=== PATIENT | male | born 1965 | race Caucasian/White ===

== ENCOUNTER → 2018-02-07 09:15 | Outpatient (CLI) | payer MEDICAID, SELFPAY ==
--- NOTE | 2018-02-07 06:00 | DI.REPORT_ITS ---
SYMPTOM/DIAGNOSIS: LUMBAR RADICULOPATHY C-ARM FLUOROSCOPY: Fluoroscopy Time: 26 SEC Fluoroscopy was provided for guidance with lumbar spine pain clinic injection. Please see procedure note for details.
[2018-02-07 09:22] VITALS: BP 120/83; PULSE 90; RESP 16; TEMP 36.1; O2SAT 94
[2018-02-07] MEDS: Omnipaque 240 MG/ML 50 ML BTL IJ (10:24)
[2018-02-07] MEDS: methylPREDNISolone ACETATE 40 MG/ML VIAL IJ (10:24)
[2018-02-07 10:26] VITALS: BP 135/81; PULSE 82; RESP 12; O2SAT 96
--- NOTE | 2018-02-07 10:28 | PDOC.PAIN_ITS ---
Pain Clinic Procedure Note Patient Problems: Current Active Problems Problem Status Onset Lumbar radiculopathy, right Chronic EPIDURAL STEROID WITH CATHETER INJECTION PROCEDURE NOTE COMMENTS: Patient had previous epidural steroid injection with good relief in October. Prior to that he has had SI joint injections and radiofrequency ablation without relief. CASSIDY PORTILLO has been referred to the [facility] for lumbar epidural steroid injection. Patient was greeted by the nurse who verified patients name and . Patient was then taken to the fluoroscopy suite. Patient was interviewed and the medical record reviewed. There were no medical , pharmacologic, radiographic, or other structural contraindications to attempting fluoroscopically guided lumbar epidural steroid injection. Risks and expected side effects as well as potential benefits of the procedure were reviewed and voiced concerns addressed. The patient consent form was signed and witnessed. Standard time-out procedure was performed. Patient was placed in the prone position on the fluoroscopy table and automated blood pressure cuff and pulse oximeter applied. The skin entry point for entering/approaching the epidural space by a {L5-S1} and marked. Following thorough chlorhexadine preparation of the skin and draping and 1% lidocaine infiltration of the skin entry point and subcutaneous tissues, a 17 gauge Touhy needle was placed under fluoroscopic guidance and with loss of resistance technique into the epidural space. Needle tip placement and depth were aided and confirmed by fluoroscopy. There was no paresthesia or return of blood or CSF through the needle. An Arrow cath was thread to the {right and cephalad} and 1 cc's of Omnipaque 240 was injected with clear epidural spread confirmed with fluoroscopy. 80mg depomedrol was injected. There was not any unusual discomfort expressed. Vital signs were stable throughout the procedure and were as recorded in nursing records. Follow up plans and appointments were discussed.Post procedure instruction was given as documented in nursing records and having met discharge criteria and was discharged from the [facility]. COMMENTS: He will follow-up as needed. He would be a candidate for intercept study possibly or possibly non-study basivertebral nerve RF candidate. I will have him follow-up with Andree Andre in a few weeks. Would probably obtain an updated MRI
== END ==
PROVIDERS: PCP Nurse Practitioner Family; Visit Provider Anesthesiology Pain Medicine
DX: M54.16 Radiculopathy, lumbar region (principal); G89.29 Other chronic pain
CPT/HCPCS: 62323; 72100; J1030; Q9967

== ENCOUNTER 2018-06-06 07:30 | Outpatient (REF) | payer MEDICAID, SELFPAY ==
[2018-06-06 13:04] LABS: ALT 23 U/L (12-78); AST 23 U/L (15-37); Albumin 3.5 g/dL (3.4-5.0); Alkaline Phosphatase 109 U/L (46-116); Anion Gap 3.8 mmol/L (3-11); BUN 12 mg/dL (7-18); Bilirubin, Total 0.2 mg/dL (0.2-1.0); CO2 34.2 mmol/L (21.0-32.0); CREATININE 0.89 mg/dL (0.70-1.30); Chloride 105 mmol/L (98-107); Cholesterol 133 mg/dL (50-200); Glucose 99 mg/dL (70-100); HDL Cholesterol 35 mg/dL (40-60); LDL CHOLESTEROL 88 mg/dL (<100); Potassium 4.2 mmol/L (3.5-5.1); Sodium 143 mmol/L (136-145); Total Protein 6.9 g/dL (6.4-8.2); Triglyceride 45 mg/dL (30-150)
== END 2018-06-06 07:50 ==
LOC: NCHCN 07:30
PROVIDERS: PCP Nurse Practitioner Family; Visit Provider Nurse Practitioner Family
DX: Z13.220 Encounter for screening for lipoid disorders (principal); Z13.228 Encounter for screening for other metabolic disorders; Z00.00 Encounter for general adult medical examination without abnormal findings
CPT/HCPCS: 80053; 80061; 83721

== ENCOUNTER 2018-09-21 10:38 | Outpatient (CLI) | payer MEDICAID, SELFPAY ==
[2018-09-21 10:41] VITALS: BP 115/83; PULSE 92; RESP 24; TEMP 37; O2SAT 93
[2018-09-21] MEDS: methylPREDNISolone ACETATE 40 MG/ML VIAL IJ (11:00)
[2018-09-21 11:01] VITALS: BP 134/72; PULSE 86; RESP 20; O2SAT 92
[2018-09-21] MEDS: Omnipaque 240 MG/ML 50 ML BTL IJ (11:01)
--- NOTE | 2018-09-21 11:03 | DI.RAD_ITS ---
SYMPTOMS/DIAGNOSIS: LUMBAR RADICULOPATHY, LUMBAR EPIDURAL STEROID INJECTION PAIN CLINIC: Fluoroscopy Time: 23.5 sec, 9.46 mGy Images submitted from the pain clinic demonstrate needle positioning over the left paramedian position at the level of L 4 - 5 in conjunction with an epidural steroid injection carried out by Dr. Dos Santos. Please see the procedure report for further information.
--- NOTE | 2018-09-21 11:03 | PDOC.PAIN ---
Pain Clinic Procedure Note Current Active Problems Problem Status Onset Left lumbar radiculitis Chronic Lumbar Epidural Steroid Injection Procedure Note COMMENTS: I did review his recent evaluation note from Ms. Miller on 08/29/18. I also reviewed his most recent lumbar spine MRI. CASSIDY PORTILLO has been referred to the [facility] for lumbar epidural steroid injection. The patient was greeted by the nurse who verified patients name and . Patient was then taken to the fluoroscopy suite. The patient was interviewed and the medial record reviewed. There were no medical, pharmacologic, radiographic, or other structural contraindications to attempting fluoroscopically guided lumbar epidural steroid injection. Risks and expected side effects as well as potential benefits of the procedure were reviewed and voiced concerns expressed. The patient consent form was signed and witnessed. Standard patient time-out procedure was performed. The patient was placed in the prone position on the fluoroscopy table and automated blood pressure cuff and pulse oximeter applied. The skin entry point for entering/approaching the epidural space at the left side of the L4-L5 interspace and marked. Following thorough chlorhexadine preparation of the skin and draping and 1% lidocaine infiltration of the skin entry point and subcutaneous tissues, a 18 gauge Touhy needle was placed under fluoroscopic guidance and with loss of resistance technique into the epidural space. Needle tip placement and depth were aided and confirmed by fluoroscopy. There was no paresthesia or return of blood or CSF through the needle. 1 cc's of Omnipaque 240 was injected with clear epidural spread confirmed with fluoroscopy. 80mg depomedrol was injected. There was not any unusual discomfort expressed by CASSIDY PORTILLO. Patient's vital signs were stable throughout the procedure and were as recorded in nursing records. Follow up plans and appointments were discussed with patient. Post procedure instruction was given as documented in nursing records and having met discharge criteria and was discharged from the [facility]. COMMENTS: If this procedure is found to be effective, it can be completed up to 3 times per 12 months.
== END 2018-09-22 12:44 | disposition home or self-care (01) ==
LOC: PC 10:38
PROVIDERS: PCP Nurse Practitioner Family; Visit Provider Preventive Medicine Occupational Medicine
DX: M54.16 Radiculopathy, lumbar region (principal)
CPT/HCPCS: 62323; 72100; J1030; Q9967

== ENCOUNTER 2019-04-19 19:19 | Emergency (ER) | payer MEDICAID, SELFPAY ==
[2019-04-19] VITALS (47 sets, daily range): BP systolic 110–147; BP diastolic 66–87; PULSE 68–92; RESP 8–24; TEMP 37; O2SAT 88–100
--- NOTE | 2019-04-19 19:22 | ED.GENADUL_ITS ---
Discharge Plan Disposition Patient Disposition: HOME Condition: Good Discharge Details Chief Complaint: AMS/LOC Clinical Impression: Hypercarbia, Cough, COPD exacerbation Primary Care Provider: Celina Johnson ED Provider: Godwin Griffin Home Meds and New Rx's Prescriptions: New prednisone 50 MG tablet 50 mg PO DAILY Qty: 5 RF: 0 No Action ranitidine HCl 150 mg capsule 150 mg PO BID RF: 0 Symbicort 160-4.5 mcg/actuation HFA aerosol inhaler 1 puff IH BID RF: 0 albuterol sulfate [ProAir HFA] 90 mcg/actuation HFA aerosol inhaler 1 - 2 puff IH .COMPLEX PRNRF: 0 amitriptyline 75 MG tablet 75 mg PO as directed RF: 0 gabapentin 300 MG capsule 900 mg PO TID RF: 0 Discharge Instructions Instructions: COPD (Chronic Obstructive Pulmonary Disease) (ED) Additional Instructions: At this time I feel your symptoms of elevated CO2 levels are secondary to COPD likely worsened by your severe fatigue secondary to not sleeping last night. There is no evidence of pneumonia on your x-ray. Please take the steroid as directed. Please continue to use her Symbicort 2 puffs twice daily as directed. I would recommend using your albuterol inhaler every 4-6 hours for the next 2 to 3 days. Please make sure that your with people and not staying alone at all times. If you notice any worsening of your symptoms, or any new symptoms such as vomiting, diarrhea, fever, chills, shortness of breath, chest pain, numbness, weakness, or fainting , please return immediately to the emergency department for reevaluation. Please follow up with your primary care provider as soon as possible for reassessment and reevaluation. As always, it was a pleasure participating in your medical care today. Referrals: Celina Johnson [Primary Care Provider] - Medical Decision Making This is a 53-year-old male with a past medical history of chronic lumbar radiculopathy, reactive airway disease, who presents today for evaluation of altered mental status. EMS was contacted for this, upon their arrival the patient demonstrate normal vital signs except for temperature of 96. He demonstrated no evidence of trauma, he was found in the garage under boxes though. He was able to get up and ambulate and answer all questions. He has no complaints but is a poor historian. EMS did give him Narcan as he felt his pupils were slightly pinpoint, however this made no change. While he was in the ambulance he was notably sleepy but he woke up upon arrival to the ED. Blood sugar was normal. Stroke scale was negative per EMS on their assessment. Upon arrival here his exam is notably unremarkable. He does demonstrate some mild dysdiadochokinesia for his hands but no dysmetria, no other focal neurologic deficits. No signs of trauma, no evidence of significant abnormality. No history of overdose. No complaints of chest pain. However he does seem slightly confused and sleepy. I am uncertain as to the exact etiology however we will evaluate for potential causative agents as well as potential life- threatening etiologies. We will rehydrate, evaluate for these and reassess. Clinically there is no evidence of acute stroke, significant focal neurologic deficit, or significant trauma 11:05 PM Patient's laboratory work-up is returned, he has a mild white count, no bandemia. Afebrile, electrolytes normal, renal function normal, troponin, proBNP, TSH normal. Urinalysis unremarkable, UDS positive only for tricyclics which she does take as prescribed. Acetaminophen and salicylate levels normal. CT scan unremarkable per virtual radiology. VBG did come back though and demonstrated a mild noncompensated respiratory acidosis with a PCO2 of 62. This may be the cause of his slightly vague and nonspecific fatigue symptomatology. BiPAP was placed, to repeat serial VBG's were drawn which demonstrated notable driving down of his PCO2. This patient CO2 went lower there was a notable direct correlation between his alert mental status and his CO2. At this time his CO2 is now 48, he is notably conversant, wide-awake, very conversational. I feel this is likely the cause of his symptomatology. On reassessment the patient does have a very minimal wheeze in the right lower lung field. We will give 1 DuoNeb. Currently his oxygenation is stable, his respirations are normal, he demonstrates continued normal neurologic exam with no focal neurologic deficits. Feel that the cause of his symptomatology was CO2 retention, may be because mild bronchitis. Chest x-ray negative for pneumonia. Patient does not want admission, nurse requesting to go home. We will give oral steroids here, prescription for steroids at home, he already has a Symbicort inhaler at home recommend he continue to use this frequently. Currently the patient is of sound mind, demonstrates notable decision-making capacity, and understands risks and benefits of discharge versus admission. Including the avoidance of potential life-threatening etiology or disability. Additionally at this time the patient continues to deny any suicidal ideations or taking any additional medication. 11:36 PM Patient was again reassessed, he continues to do very well, he feels well and would like to go home. I did discuss observation overnight, and prolonged observation here in the ED the patient states that he does not feel that this is necessary and would like to go home. We did discuss again the risks and benefits of this and he understands. Prior to discharge we did get the patient up and ambulate him around the emergency department again. He did very well with this, he had no loss of consciousness, syncope, tachydysrhythmia, oxygen was stable between 9394% on room air. Patient continues to state that he feels comfortable going home and would like to go home. We will call her CT for him. Given prescription for prednisone for mild bronchitis versus mild COPD. Recommend he continue using his Symbicort, and the albuterol every 6 hours for the albuterol every 12 hours for the Symbicort. We discussed the importance of close follow-up with his PCP. I have extensively reviewed the treatment plan and discharge instructions with the patient. I have addressed all patient concerns at this time. The patient was made aware of what symptoms to monitor for that would warrant a return to the emergency department. Discussed the plan with the patient, they demonstrate verbal understanding and agreement with our assessment and plan at this time. EKG 19: 12 Rate 68, intervals normal, no QRS prolongation, sinus rhythm, no significant ST elevations or depressions, no significant Q waves. No inverted T waves. No other significant abnormalities. No evidence of Concepcion wave, no delta wave, no epsilon wave. No evidence of STEMI. FINDINGS: Lungs: Unremarkable. No consolidation. Pleural space: Unremarkable. No pleural effusion. No pneumothorax. Heart/Mediastinum: Unremarkable. No cardiomegaly. Bones/joints: No acute skeletal abnormality. IMPRESSION: Negative for acute thoracic pathology. Thank you for allowing us to participate in the care of your patient. Dictated and Authenticated by: Bandar Dawkins MD 04/19/2019 8:10 PM Eastern Time ([place] & [place]) FINDINGS: Limitations: Study is limited by streak and motion artifact. Brain: Normal. No hemorrhage. Unremarkable white matter. No mass effect. Ventricles: Normal. No ventriculomegaly. Bones/joints: Unremarkable. No acute fracture. Sinuses: Visualized sinuses are unremarkable. No fluid levels. Mastoid air cells: Visualized mastoid air cells are well aerated. Orbits: Unremarkable. Soft tissues: Unremarkable. IMPRESSION: No acute findings within the limits of this examination. FINDINGS: Vertebrae: Multilevel degenerative changes of the vertebra are present, as manifested by multilevel anterior osteophytes, endplate sclerosis, and multilevel posterior disc osteophyte complexes. No acutely displaced fracture or dislocation. Discs/Spinal canal/Neural foramina: Spinal canal is patent. Mild multilevel bony neuroforaminal stenosis is appreciated. Soft tissues: Unremarkable. Lungs: No acute findings of the lung apices. IMPRESSION: Negative for acute skeletal pathology. Thank you for allowing us to participate in the care of your patient. Dictated and Authenticated by: Bandar Dawkins MD 04/19/2019 8:14 PM Eastern Time ([place] & [place]) HPI General Date/Time Provider Initiated Documentation: 04/19/19 20:14 . HPI Narrative: This Is a 53-year-old male with a past medical history of reactive airway disease, on amitriptyline and gabapentin, as well as chronic lumbar radiculopathy, who presents today for evaluation of altered mental status. Per EMS they were called for altered mental status. When they arrived the patient was in the garage, no vehicles were on. He was under different boxes. However there was no evidence of trauma on the scene. He was ANO x3, he was able to ambulate to the ambulance without any difficulty. He was given 1 mg of Narcan total, as he did have slightly pinpoint pupils however they noticed no change with this. His blood sugars are normal, vital signs are stable, temperature was slightly low at 96. Patient had no complaints whatsoever. No other family was there. Currently the patient denies any complaints whatsoever. He denies chest pain, shortness of breath, headache, neck pain, numbness, tingling, weakness, nausea, vomiting, diarrhea, homicidal or suicidal ideations, fall, trauma, alcohol use, drug use. He denies taking any additional of his home medications. He has no other complaints at this time. He has a notably historian, and there are no other historical components that can be added to the HPI at this time. Related Data Home Medications Medication Instructions Recorded Confirmed amitriptyline 75 mg PO as directed 11/01/16 09/21/18 gabapentin 900 mg PO TID tab-cap 11/01/16 09/21/18 albuterol sulfate 90 mcg/actuation 1 - 2 puff IH .COMPLEX PRN gm 08/23/18 09/21/18 aerosol inhaler budesonide-formoterol HFA 160 1 puff IH BID gm 08/23/18 09/21/18 mcg-4.5 mcg/actuation aerosol inhaler ranitidine HCl 150 mg capsule 150 mg PO BID cap 08/23/18 09/21/18 prednisone 50 mg PO DAILY #5 tab 04/19/19 Previous Rx's Medication Instructions Recorded prednisone 50 mg PO DAILY #5 tab 04/19/19 Allergies Allergy/AdvReac Type Severity Reaction Status Date / Time meloxicam AdvReac Intermediate Nausea Unverified 04/19/19 19:23 Review of Systems All systems reviewed & are unremarkable except as noted in HPI and below PFSH Medical History (Updated 09/21/18 @ 11:03 by Derick Dos Santos DO) Aggression Alcohol abuse, in remission Anxiety Back pain Bilateral ankle fractures Chronic cough Chronic knee pain Chronic left shoulder pain Chronic pain (Chronic) COPD (chronic obstructive pulmonary disease) (Chronic) Depression Edentulous Elevated blood pressure reading Fatigue GERD (gastroesophageal reflux disease) (Chronic) Headache Homeless (Acute) Hx of fracture of nose Hydrocele, left Insomnia (Chronic) Onychomycosis Peripheral neuropathy Spondylosis of lumbar spine (Chronic) Tobacco use disorder Ulna fracture Surgical History (Updated 05/30/17 @ 14:41 by Mikki Jesus) Colonoscopy - MAC (05/30/17) repair fractured ankels repair hyrocele repair of thumb Social History Smoking/Tobacco Use Status: Current every day Alcohol Intake: current Alcohol Intake frequency: a few times a week Drug use: Occasionally Substance use type: marijuana Do you feel safe at home: Yes Do you feel safe in your relationship?: Yes Exam Narrative Exam Narrative: 1.Const: Well-nourished, Well-developed, appearing stated age 2.Eyes: PERRL, no conjunctival injection, and symmetrical lids. 3.ENT: Atraumatic external nose and ears. Moist MM. Neck: Symmetric, trachea m idline, No thyromegaly. There is no evidence of raccoon eyes, hernandez sign, CSF rhinorrhea, mastoid tenderness, cranial crepitus, hemotympanum, exophthalmos, or hyphema. Patient demonstrates intact dentition with no signs of tooth avulsion or fracture, no signs of jaw deformity, no evidence of a LeFort's fracture, with an intact palate, nose and orbital region. There is no evidence of a nasal sep huseyin hematoma. No proptosis. Jaw closes symmetrically. Airway is clear. Patient demonstrates good movement of cervical neck. There is no nuchal rigidity, no nuchal tenderness. Patient is able to flex the neck without any difficulty or significant pain. Negative Kernig's and Brudzinski sign. 4.CVS: Regular rate and rhythm, Normal s1 and s2. No murmurs, carotid bruits, rubs, or gallops. Radial pulses 2+ bilaterally and symmetric. Dorsalis pedis pulses 2+ bilaterally and symmetric. 2+ capillary refill. No evidence of distant heart sounds. No extremity edema. No evidence of gross hemorrhage. 5.RESP: Airway clear, no obstructions. No abrasions or ecchymosis. Chest movement symmetric with respirations. No chest wall tenderness. Trachea midline. No crepitus. No step offs. No paradoxical movements. Lungs are clear to auscultation bilaterally. No rales, rhonchi, wheezing or stridor. Breath sound symmetric. No Sucking chest wounds. No clinical evidence of significant chest trauma. 6.GI: Soft, nondistended, nontender. Bowel tones normoactive. No masses or organomegaly. No ecchymosis or abrasions. No periumbilical ecchymosis or seatbelt sign. No flank or CVA tenderness. No clinical signs of significant trauma. No clinical evidence of significant abdominal trauma. 7.MSK: No gross deformities or discolorations or lesions. Tolerates full range of motion of extremities without tenderness. All compartments of upper and lower extremities are soft with no tenderness. Vascular exam demonstrates brisk capillary refill and intact pulses in all extremities. Pelvic exam demonstrates a stable pelvis, nontender to lateral compression and palpation of symphysis pubis.. No clinical evidence of significant musculoskeletal trauma. No midline tenderness to palpation over the CTLS spine. Normal ROM in flexion, extension, side bend, and rotation. Patient has +5 out of 5 strength in the lower extremities in dorsiflexion and plantarflexion, knee flexion and extension, hip flexion and extension. There is +2 over 2 dorsalis pedis pulses bilaterally. There is normal sensation to the skin with light touch at the foot, knee, and hip. Normal saddle sensation. Good sensation over the deep sural nerve area bilaterally. Rectal exam deferred. Reflexes are +2 over 4 in the patellar reflex bilaterally. +5 out of 5 strength in the medial, ulnar, radial nerve distribution bilaterally in the hands as well as intact light touch sensation to these dermatomes on the hands 8.Skin: Warm, Dry. No rashes or lesions. 9.Neuro: eligibility supervisor II-XII grossly intact. Sensation grossly intact, no focal neurolo gic deficits. All 6 cardinal planes of vision are fully intact. No evidence of rotatory or vertical nystagmus. The patient demonstrated a normal [id number], good dexterity. The patient does demonstrate mild dysdiadochokinesia with his upper hands, he has difficulty performing synchronous rapid alternating movements. Sensation was intact bilaterally as well as muscle strength bilaterally for all extremities. Patient was able to verbalize butter cup with no slurring, or miss pronunciation. CN 2-12 tested and intact, patient is able to hold bilateral arms up for 5 seconds and there is no pronator drift, patient also holds legs up for 10 seconds bilaterally without any drop, sensation intact to light touch in hands and feet bilaterally. Minimal slurring of his speech, but this may be secondary to his edentulous state. No clear evidence of acute stroke. 10.Psych: (AAO) x3. Appropriate mood and affect although he does appear slightly sleepy. He is able to speak but has minimal slurring of his speech.
[2019-04-19 19:34] LABS: BE (Venous) 1.8 mmol/L (-3-3); HCO3 (Venous) 29 mmol/L (22-28); O2 Sat (Venous) 59 % (70-80); TCO2 (Venous) 26 mmol/L (22-29); pH (Venous) 7.28 (7.32-7.43); pO2 (Venous) 30 mm/Hg (28-44)
[2019-04-19 19:38] LABS: Abs Immature Grans 0.04 k/cumm (0.0-0.09); Absolute Basophil Count 0.04 k/cumm (0.0-0.2); Absolute Eosinophil Count 0.27 k/cumm (0.0-0.7); Absolute Lymphocyte Count 1.16 k/cumm (1.2-3.4); Absolute Monocyte Count 1.04 k/cumm (0.11-0.7); Absolute Neutrophil Count 12.27 k/cumm (1.2-6.7); Basophils % 0.3; Eosinophils % 1.8; HCT 45.4 % (40.0-50.0); HGB 14.7 g/dL (13.5-17.5); Immature Grans % 0.3; Lymphocytes % 7.8; Mean Corp. HGB Concentration 32.4 g/dL (32.0-36.0); Mean Corpuscular Hemoglobin 32.4 pg (27.0-33.0); Mean Platelet Volume 10.7 fL (8.0-11.0); Neutrophils % 82.8; Platelet Count 225 x1000/uL (130-400); RBC 4.54 m/cumm (4.50-6.00); RBC Distribution Width 14.3 % (11.8-14.1); White Blood Cell Count 14.82 k/cumm (4.4-10.8)
[2019-04-19 19:45] LABS: Lactate 1.4 mmol/L (0.6-1.4)
[2019-04-19 19:46] LABS: Ammonia 16 umol/L (11-32)
[2019-04-19 19:47] LABS: pCO2 (Venous) 62 mm/Hg (34-47)
[2019-04-19 19:49] LABS: INR 0.9 (0.9-1.1); PTT Activated 35.2 sec (21.0-31.4); Prothrombin Time 9.5 sec (9.3-11.0); Salicylate 3.3 mg/dL (2.8-20.0)
[2019-04-19 19:58] LABS: Acetaminophen < 2 ug/mL (10-30)
[2019-04-19] MEDS: Normal Saline 1,000 ML 1000 ML IV (19:58)
--- NOTE | 2019-04-19 20:01 | DI.RAD_ITS ---
EXAM: XR CHEST 2V PA LATERAL CLINICAL HISTORY: altered TECHNIQUE: COMPARISON: CHEST 2 VIEWS PA,LAT from 09/13/2016 FINDINGS: The heart is not enlarged. There is a poor inspiration. There is mild prominence of the pulmonary i nterstitial markings probably chronic. No focal consolidation seen. No pleural effusion seen. IMPRESSION: Poor inspiration. No definite acute process.
--- NOTE | 2019-04-19 20:01 | DI.CT_ITS ---
EXAM: CT HEAD WO C SPINE WO. CLINICAL HISTORY: Altered mental status TECHNIQUE: Noncontrast CT of the head was performed. CT examination of the cervical spine was performed utilizing multi slice acquisition and multiplanar reconstruction COMPARISON: No exams were available for comparison FINDINGS: HEAD:. There was marked motion artifact. Portions of the brain, particularly middle and posterior f ossas, are not well visualized. No gross intracranial hemorrhage or ventriculomegaly. No gross calv arial fracture. C SPINE: Images obtained through the lung apices are unremarkable. Visualized tracheolaryngeal stru ctures appear intact. Mild prominence of lymph nodes throughout the cervical region bilaterally with a nonspecific appearance. No gross cervical mass identified. Moderate degenerative changes of the cervical spine noted, particularly at C5-6 and C6-7. No evidence of acute fracture or dislocation. IMPRESSION: Limited cranial CT, no gross intracranial injury identified. Repeat scan if clinically indicated. Degenerative changes of the cervical spine, no evidence of acute fracture or dislocation.
[2019-04-19 20:08] LABS: ALT 22 U/L (16-63); AST 23 U/L (15-37); Albumin 3.9 g/dL (3.4-5.0); Alkaline Phosphatase 109 U/L (46-116); Anion Gap 10.5 mmol/L (3-11); BUN 8 mg/dL (7-18); Bilirubin, Total 0.4 mg/dL (0.2-1.0); CO2 27.5 mmol/L (21.0-32.0); CREATININE 0.86 mg/dL (0.70-1.30); Calcium 8.7 mg/dL (8.5-10.1); Chloride 103 mmol/L (98-107); ETHANOL BLOOD 4.2 mg/dL (<3); Glucose 86 mg/dL (70-100); Lipase 65 U/L (73-393); NT-proBNP 34 pg/mL; Potassium 3.5 mmol/L (3.5-5.1); Sodium 141 mmol/L (136-145); Total Protein 7.9 g/dL (6.4-8.2); Troponin I < 0.05 ng/mL (0.00-0.06)
--- NOTE | 2019-04-19 20:11 | DI.VRAD_ITS ---
PROCEDURE INFORMATION: Exam: XR Chest, 2 Views Exam date and time: 04/19/2019 7:22 PM Clinical history: 53 years old, male; Other: Altered TECHNIQUE: Imaging protocol: XR of the chest Views: 2 views. COMPARISON: CR CHEST 2 VIEWS PA,LAT 09/13/2016 11:14 AM FINDINGS: Lungs: Unremarkable. No consolidation. Pleural space: Unremarkable. No pleural effusion. No pneumothorax. Heart/Mediastinum: Unremarkable. No cardiomegaly. Bones/joints: No acute skeletal abnormality. IMPRESSION: Negative for acute thoracic pathology. Dictated and Authenticated by: Bandar Lira MD. Ordering:LEWIS Connelly MD
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
[2019-04-19 20:53] LABS: Bilirubin Negative (Negative); Blood Negative (Negative); Clarity Clear (Clear); Glucose Negative (Negative); Ketones Negative (Negative); Leukocyte Esterase Negative (Negative); Nitrite Negative (Negative); Specific Gravity <= 1.005 (1.005-1.025); Urobilinogen 0.2 EU/dL (Up TO 0.2); pH 5.5 (5-8)
[2019-04-19 21:01] LABS: *AMPHETAMINES SCREEN URINE Negative (Negative); *BARBITURATES SCREEN URINE Negative (Negative); *BENZODIAZEPINES SCREEN URINE Negative (Negative); Cannabinoids THC Negative (Negative); Cocaine Screen,Urine Negative (Negative); METHADONE URINE SCREEN Negative (Negative); OPIATES URINE SCREEN Negative (Negative)
[2019-04-19 21:03] LABS: Tricyclic Antidepressants POSITIVE (Negative)
[2019-04-19 21:26] LABS: BE (Venous) 0.4 mmol/L (-3-3); HCO3 (Venous) 26 mmol/L (22-28); O2 Sat (Venous) 78 % (70-80); TCO2 (Venous) 24 mmol/L (22-29); pCO2 (Venous) 51 mm/Hg (34-47); pH (Venous) 7.32 (7.32-7.43); pO2 (Venous) 41 mm/Hg (28-44)
[2019-04-19 22:48] LABS: BE (Venous) 0.3 mmol/L (-3-3); HCO3 (Venous) 26 mmol/L (22-28); O2 Sat (Venous) 84 % (70-80); TCO2 (Venous) 24 mmol/L (22-29); pCO2 (Venous) 48 mm/Hg (34-47); pH (Venous) 7.34 (7.32-7.43); pO2 (Venous) 46 mm/Hg (28-44)
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
[2019-04-19] MEDS: Albuterol/Ipratropium 3 ML UPD VIAL UPD (23:17)
[2019-04-19] MEDS: methylPREDNISolone SUCC 125 MG VIAL IVP (23:18)
--- NOTE | 2019-04-19 23:33 | NUR.NOTE ---
Nursing Note: ambulated pt in ER. O2 sat stayed 93-94% and pulse of 88-89bpm. aware.
[2019-04-20] VITALS: PULSE 71; RESP 18; O2SAT 94
[2019-04-20 00:10] VITALS: PULSE 73; RESP 14; O2SAT 91
[2019-04-20 00:20] VITALS: PULSE 73; RESP 13; O2SAT 88
== END 2019-04-20 00:30 | disposition home or self-care (01) ==
PROVIDERS: Emergency Provider Student in an Organized Health Care Education/Training Program; PCP Nurse Practitioner Family
DX: J96.02 Acute respiratory failure with hypercapnia (principal); R05 Cough; J44.1 Chronic obstructive pulmonary disease with (acute) exacerbation
CPT/HCPCS: 36415; 80053; 80307; 82375; 82805; 83690; 93005; 94640; 96361; 96374; 99285; 70450; 71046; 72125; 80320; 80329; 81003; 82140; 83605; 83880; 84443; 84484; 85025; 85610; 85730; 93010; J2930; J7620

== ENCOUNTER 2019-05-29 10:16 | Outpatient (CLI) | payer MEDICAID, SELFPAY ==
[2019-05-29 10:23] VITALS: BP 115/76; PULSE 78; RESP 20; TEMP 37.1; O2SAT 94
--- NOTE | 2019-05-29 11:30 | DI.RAD_ITS ---
EXAM: XR PAIN CLINIC LUMBAR SP 2V CLINICAL HISTORY: Dx: Lumbar Radiculopathy TECHNIQUE: Realtime digital imaging was performed. Fluoro time: 24 sec, 7.33 mGy COMPARISON: No exams were available for comparison FINDINGS: Fluoroscopy was utilized by Dr. Bernard during the performance of a lumbosacral steroid injection. Please refer to the procedure report for complete details.
--- NOTE | 2019-05-29 11:33 | PDOC.PAIN ---
Pain Clinic Procedure Note Procedure Note Procedure Note: Lumbar Epidural Steroid Injection Procedure Note Pre-operative diagnosis: lumbar radiculopathy Post-operative diagnosis: same as above CASSIDY PORTILLO has been referred to the [facility] for lumbar epidural steroid injection. The patient was greeted by the nurse who verified patients name and . Patient was then taken to the fluoroscopy suite. The patient was interviewed and the medial record reviewed. There were no medical, pharmacologic, radiographic, or other structural contraindications to attempting fluoroscopically guided lumbar epidural steroid injection. Risks and expected side effects as well as potential benefits of the procedure were reviewed and voiced concerns expressed. The patient consent form was signed and witnessed. Standard patient time-out procedure was performed. The patient was placed in the prone position on the fluoroscopy table and automated blood pressure cuff and pulse oximeter applied. The skin entry point for entering/approaching the epidural space by a L5-S1 and marked. Following thorough chlorhexadine preparation of the skin and draping and 1% lidocaine infiltration of the skin entry point and subcutaneous tissues, a 18 gauge Touhy needle was placed under fluoroscopic guidance and with loss of resistance technique into the epidural space. Needle tip placement and depth were aided and confirmed by fluoroscopy. There was no paresthesia or return of blood or CSF through the needle. 1 cc's of Omnipaque 240 was injected with clear epidural spread confirmed with fluoroscopy. 80mg depomedrol was injected. This was followed by 1cc of preservative free 1% lidocaine as well as 1cc of preservative free normal saline. There was not any unusual discomfort expressed by CASSIDY PORTILLO. Patient's vital signs were stable throughout the procedure and were as recorded in nursing records. Follow up plans and appointments were discussed with patient. Post procedure instruction was given as documented in nursing records and having met discharge criteria and was discharged from the [facility]. COMMENTS: If this procedure is helpful, it can be completed up to 3 times per 12 months. Yonatan Bernard MD Pain Management
[2019-05-29] MEDS: Omnipaque 240 MG/ML 50 ML BTL IJ (11:38)
[2019-05-29] MEDS: methylPREDNISolone ACETATE 80 MG/ML VIAL IJ (11:38)
[2019-05-29 11:39] VITALS: BP 133/70; PULSE 78; RESP 13; O2SAT 96
== END 2019-05-29 10:36 ==
PROVIDERS: PCP Nurse Practitioner Family; Visit Provider Internal Medicine
DX: M54.16 Radiculopathy, lumbar region (principal)
CPT/HCPCS: 62323; 72100; J1040; Q9967

== ENCOUNTER 2020-12-27 20:30 | Emergency (ER) | payer MEDICAID, SELFPAY ==
[2020-12-27] VITALS (13 sets, daily range): BP systolic 133–145; BP diastolic 74–92; PULSE 75–92; RESP 13–27; TEMP 36.2; O2SAT 87–96
--- NOTE | 2020-12-27 | DI.CT_ITS ---
Exam(s) CT THORACIC LUMBAR SPINE REC EXAM: CT THORACIC LUMBAR SPINE REC CLINICAL HISTORY: [facility] TECHNIQUE: Axial, coronal and sagittal images of the thoracic and lumbar spine were reconstructed fr om the chest abdomen pelvic CT COMPARISON: No exams were available for comparison FINDINGS: No thoracic or lumbar spine fracture is seen. There are degenerative changes with endplate osteophy jose as well as facet joint degenerative changes. Degenerative disc changes are greatest at L4-5 with eccentric disc space narrowing and endplate osteophytes projecting toward the right. A mild thoraco lumbar scoliosis is seen. No lytic or blastic bony lesions are identified. IMPRESSION: Degenerative changes and mild scoliosis. No acute fracture.
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
--- NOTE | 2020-12-27 20:30 | RT.EKG_ITS ---
APPROVED REPORT Exam: Resting ECG Reason for Exam: altered Patient Location: E HR:76 bpm ECG Measurements Heart Rate 76 AXIS HI 161 P 79 QRSd 93 QRS 52 QT 418 T 60 QTc 472 Conclusion Sinus rhythm...normal P axis, V-rate 60- 99 Physician: no stemi
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
[2020-12-27 20:42] LABS: Abs Immature Grans 0.03 10^3/uL (0.0-0.06); Absolute Basophil Count 0.12 10^3/uL (0.0-0.2); Absolute Eosinophil Count 0.25 10^3/uL (0.0-0.7); Absolute Lymphocyte Count 2.42 10^3/uL (1.2-3.4); Absolute Monocyte Count 0.73 10^3/uL (0.1-0.8); Absolute Neutrophil Count 2.83 10^3/uL (1.2-6.7); BE (Venous) 6 mmol/L (-2-3); Basophils % 1.9; Eosinophils % 3.9; HCO3 (Venous) 32 mmol/L (23-28); HCT 44.7 % (40.0-50.0); Immature Grans % 0.5; Lymphocytes % 37.9; MCH 35.1 pg (27.0-33.0); MCHC 33.6 % (32.0-36.0); MCV 104.7 fL (80-95); MPV 10.7 fL (8.0-11.0); Monocytes % 11.4; Neutrophils % 44.4; Nucleated RBC 0 %; O2 Sat (Venous) 58 %; Platelet Count 174 10^3/uL (130-400); RBC 4.27 10^6/uL (4.36-5.78); RDW-SD 54.2 fL; TCO2 (Venous) 28 mmol/L (24-29); WBC 6.38 10^3/uL (4.4-10.8); pCO2 (Venous) 56 mmHg (41-51); pH (Venous) 7.37 (7.31-7.41); pO2 (Venous) 30 mmHg
[2020-12-27 20:53] LABS: Ammonia < 10 umol/L (11-32)
[2020-12-27 21:05] LABS: Lipase 360 U/L (73-393); TSH (W/Ref FT4) 1.09 uIU/mL (0.36-3.74)
[2020-12-27] MEDS: Omnipaque 350 MG/ML 100 ML BTL IJ (21:12)
[2020-12-27] MEDS: Normal Saline - Diluent 50 ML VIAL IV (21:13)
[2020-12-27] MEDS: Lactated Ringers 1,000 ML 1000 ML IV (21:14)
[2020-12-27 21:15] LABS: Troponin I < 0.05 ng/mL (<0.06)
--- NOTE | 2020-12-27 21:17 | DI.VRAD_ITS ---
PROCEDURE INFORMATION: Exam: XR Right Knee Exam date and time: 12/27/2020 8:33 PM Age: 29 years old Clinical indication: Patient HX: Right knee pain TECHNIQUE: Imaging protocol: XR Right knee. Views: 3 views. COMPARISON: No relevant prior studies available. FINDINGS: Bones/joints: Normal. No acute fracture or dislocation. Soft tissues: Normal. IMPRESSION: No acute findings. Dictated and Authenticated by: Carolee Smith MD. Ordering:LEWIS Connelly MD
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
[2020-12-27 22:01] LABS: Anion Gap 8.2 mmol/L (3-11); CO2 30.8 mmol/L (21.0-32.0); CREATININE 0.7 mg/dL (0.70-1.30); Chloride 105 mmol/L (98-107); Sodium 144 mmol/L (136-145)
[2020-12-27 22:02] LABS: BUN 6 mg/dL (7-18); Calcium 8.5 mg/dL (8.5-10.1); Glucose 89 mg/dL (74-106)
[2020-12-27 22:03] LABS: Albumin 3.6 g/dL (3.4-5.0)
[2020-12-27 22:08] LABS: ALT 172 U/L (16-63); AST 188 U/L (15-37); Alkaline Phosphatase 166 U/L (46-116); Bilirubin, Total 0.3 mg/dL (0.2-1.0); ETHANOL BLOOD 395.8 mg/dL (<3); Total Protein 7.6 g/dL (6.4-8.2)
[2020-12-27 22:10] LABS: Tricyclic Antidepressants Positive (Negative)
[2020-12-27 22:13] LABS: *AMPHETAMINES SCREEN URINE Negative (Negative); *BARBITURATES SCREEN URINE Negative (Negative); *BENZODIAZEPINES SCREEN URINE Negative (Negative); Cannabinoids THC Positive (Negative); Cocaine Screen,Urine Negative (Negative); METHADONE URINE SCREEN Negative (Negative); OPIATES URINE SCREEN Negative (Negative)
== END 2020-12-27 22:55 | disposition short-term general hospital (02) ==
PROVIDERS: Emergency Provider Student in an Organized Health Care Education/Training Program; PCP Nurse Practitioner Family
DX: S13.120A Subluxation of C1/C2 cervical vertebrae, initial encounter (principal); S02.2XXA Fracture of nasal bones, initial encounter for closed fracture; S80.211A Abrasion, right knee, initial encounter; M25.512 Pain in left shoulder; R40.2412 Glasgow coma scale score 13-15, at arrival to emergency department; F10.129 Alcohol abuse with intoxication, unspecified; Y90.8 Blood alcohol level of 240 mg/100 ml or more; X58.XXXA Exposure to other specified factors, initial encounter
CPT/HCPCS: 36415; 51701; 73562; 74177; 80053; 80307; 82805; 83690; 90471; 93005; 96360; 99285; 70450; 71260; 72125; 80320; 82140; 84443; 84484; 85025; 93010; J3490

== ENCOUNTER 2021-10-14 01:44 | Outpatient (CLI) | payer MEDICAID, SELFPAY ==
--- NOTE | 2021-10-14 | DI.MRI_ITS ---
Exam(s) MR LUMBAR SPINE WO EXAM: MR LUMBAR SPINE WO CLINICAL HISTORY: LUMBAR SPONDYLOSIS, M47.816. TECHNIQUE: Multiplanar multisequence MRI was performed. COMPARISON: MR MRI - LUMBAR SPINE WO CONTRAST from 11/17/2016 FINDINGS: MR examination lumbosacral spine was performed according to the usual protocol. There are Lashawn discal vertebral signal changes consistent with disc degeneration most marked at L3-4 and L4-5. There is disc loss of height at these levels as well. There are moderate hypertrophic endplate and facet changes throughout the lumbar region. There are a re mild disc bulges at L3-4 and L4-5 without evidence of focal disc herniation. There is mild central canal spinal stenosis at L3-4 and L4-5. There is mild bilateral neural foraminal stenosis at L5-S1. No other significant findings in the region surveyed. The conus medullaris appears intact. IMPRESSION: Mild central canal spinal stenosis at L3-4 and L4-5, mild bilateral neural foraminal stenosis at L5-S 1. No focal disc herniation identified. Findings of mild central canal spinal stenosis at L4-5 and L3-4 appear to have progressed slightly si nce prior examination of October 2016. No other significant change seen. DATA REPOSITORY:
== END 2021-10-14 02:04 ==
PROVIDERS: PCP Nurse Practitioner Family; Visit Provider Nurse Practitioner Family
DX: M47.816 Spondylosis without myelopathy or radiculopathy, lumbar region (principal); M51.36 Other intervertebral disc degeneration, lumbar region; M99.73 Connective tissue and disc stenosis of intervertebral foramina of lumbar region
CPT/HCPCS: 72148

== ENCOUNTER 2021-11-10 17:27 | Outpatient (REF) | payer MEDICAID, SELFPAY ==
[2021-11-10 19:23] LABS: HCT 49.2 % (40.0-50.0); HGB 16.2 g/dL (13.5-17.5); MCH 33.5 pg (27.0-33.0); MCHC 32.9 % (32.0-36.0); MCV 102 fL (80-95); MPV 11.6 fL (8.0-11.0); Platelet Count 245 10^3/uL (130-400); RBC 4.84 10^6/uL (4.36-5.78); RDW 14.3 % (11.8-14.1); RDW-SD 54.2 fL; WBC 8.19 10^3/uL (4.4-10.8)
[2021-11-10 19:27] LABS: ALT 53 U/L (16-63); AST 63 U/L (15-37); Alkaline Phosphatase 103 U/L (46-116); Anion Gap 10.5 mmol/L (3-11); BUN 6 mg/dL (7-18); Bilirubin, Total 0.7 mg/dL (0.2-1.0); CO2 30.5 mmol/L (21.0-32.0); CREATININE 0.7 mg/dL (0.70-1.30); Calcium 9.1 mg/dL (8.5-10.1); Chloride 100 mmol/L (98-107); Glucose 75 mg/dL (74-106); Potassium 3.5 mmol/L (3.5-5.1); Sodium 141 mmol/L (136-145)
[2021-11-12 10:20] LABS: Hepatitis C Ab w Rflx HCV PCR Negative (Negative)
== END 2021-11-10 17:28 | disposition home or self-care (01) ==
LOC: NCHCN 17:27
PROVIDERS: PCP Nurse Practitioner Family; Visit Provider Nurse Practitioner Family
DX: R79.89 Other specified abnormal findings of blood chemistry (principal); R03.0 Elevated blood-pressure reading, without diagnosis of hypertension; Z00.00 Encounter for general adult medical examination without abnormal findings; Z11.59 Encounter for screening for other viral diseases
CPT/HCPCS: 80053; 85027; 86803

== ENCOUNTER 2021-11-12 17:07 | Emergency (ER) | payer MEDICAID, SELFPAY ==
--- NOTE | 2021-11-12 17:00 | DI.CT_ITS ---
Exam(s) CT THORACIC SPINE WO EXAM: CT THORACIC SPINE WO CLINICAL HISTORY: fall, cant feel legs. TECHNIQUE: Imaging Protocol: Axial computed tomography images with coronal and sagittal reformatted images were created and reviewed. COMPARISON: CT CT LUMBAR SPINE WO from 11/12/2021 FINDINGS: Bones: No fractures or dislocations are seen. There are degenerative changes seen in the thoracic sp ine the alignment of the spine is normal including the cervicothoracic junction. Soft tissues: The soft tissues of the chest are unremarkable. There is fatty infiltration of the live r. There are nonobstructing stones in both kidneys. IMPRESSION: No acute fracture or subluxation in the thoracic spine. RADIATION DOSE DELIVERED: Total DLP Total DLP DATA REPOSITORY: All CT scans at this facility are submitted to the National Radiology Data Registry (NRDR) Dose Index Registry (DIR) with the [employer] (ACR). RADIATION OPTIMIZATION: All CT scans at this facility use at least one of these dose optimization te chniques: automated exposure control; mA and/or kV adjustment per patient size (includes targeted exa ms where dose is matched to clinical indication); or iterative reconstruction.
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
[2021-11-12 17:11] VITALS: BP 131/70; PULSE 73; RESP 18; TEMP 36.5; O2SAT 94
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
[2021-11-12 17:35] LABS: Abs Immature Grans 0.16 10^3/uL (0.0-0.06); Absolute Basophil Count 0.11 10^3/uL (0.0-0.2); Absolute Eosinophil Count 0.25 10^3/uL (0.0-0.7); Absolute Monocyte Count 0.99 10^3/uL (0.1-0.8); Absolute Neutrophil Count 5.27 10^3/uL (1.2-6.7); Basophils % 1.2; Eosinophils % 2.7; HCT 49.8 % (40.0-50.0); HGB 16.7 g/dL (13.5-17.5); Immature Grans % 1.7; Lymphocytes % 26.9; MCH 34.2 pg (27.0-33.0); MCHC 33.5 % (32.0-36.0); MCV 102 fL (80-95); MPV 11.3 fL (8.0-11.0); Monocytes % 10.7; Neutrophils % 56.8; Platelet Count 227 10^3/uL (130-400); RBC 4.89 10^6/uL (4.36-5.78); RDW 14.3 % (11.8-14.1); RDW-SD 53.7 fL; WBC 9.28 10^3/uL (4.4-10.8)
[2021-11-12] MEDS: Folic Acid 1 MG TAB PO (17:37)
[2021-11-12] MEDS: Thiamine 200 MG/2 ML VIAL 100 MG IM (17:37)
[2021-11-12] MEDS: Normal Saline 1,000 ML 1000 ML IV (17:37)
--- NOTE | 2021-11-12 17:59 | NUR.NOTE ---
Pt spekaing in clear, full sentences and reports back pain from falling today. I have a history of back pain though but it's worse because of my fall.
[2021-11-12 18:01] LABS: ALT 56 U/L (16-63); AST 90 U/L (15-37); Albumin 3.8 g/dL (3.4-5.0); Alkaline Phosphatase 108 U/L (46-116); Anion Gap 8.7 mmol/L (3-11); BUN 5 mg/dL (7-18); Bilirubin, Total 0.5 mg/dL (0.2-1.0); CO2 30.3 mmol/L (21.0-32.0); CREATININE 0.5 mg/dL (0.70-1.30); Calcium 8.4 mg/dL (8.5-10.1); Chloride 99 mmol/L (98-107); ETHANOL BLOOD 279.7 mg/dL (<10); Glucose 85 mg/dL (74-106); Potassium 4.6 mmol/L (3.5-5.1); Sodium 138 mmol/L (136-145); Total Protein 8.5 g/dL (6.4-8.2)
--- NOTE | 2021-11-12 19:04 | DI.VRAD_ITS ---
PROCEDURE INFORMATION: Exam: CT Head Without Contrast Exam date and time: 11/12/2021 6:35 PM Age: 56 years old Clinical indication: Injury or trauma; Concussion/head injury; Consciousness not specified; Injury date: 11/12/21; Injury details: Fall, cant feel legs TECHNIQUE: Imaging protocol: Computed tomography of the head without contrast. Radiation optimization: All CT scans at this facility use at least one of these dose optimization techniques: automated exposure control; mA and/or kV adjustment per patient size (includes targeted exams where dose is matched to clinical indication); or iterative reconstruction. COMPARISON: CT HEAD CERVICAL SPINE WO 12/27/2020 8:47 PM FINDINGS: Brain: Cerebral sulci show bilateral symmetry with no supratentorial mass or mass effect detected. Brainstem and cerebellum are unremarkable. There is no evidence of acute intracranial hemorrhage. Cerebral ventricles: Ventricular and cisternal spaces are normal in size and configuration and there is no midline shift or hydrocephalus seen. Paranasal sinuses: Minimal mucosal disease involves the smaller right-sided sphenoidal air cell with other paranasal sinuses grossly clear throughout. Mastoid air cells: Grossly clear bilaterally. Probable cerumen seen in the right external auditory canal. Bones/joints: Bony calvarium and skull base are intact and no acute fractures are detected. Soft tissues: Unremarkable. IMPRESSION: Unremarkable noncontrast head CT with no evidence of intracranial hemorrhage or other acute intracranial process. Dictated and Authenticated by: Huber Álvarez MD. Ordering:CAMI Houser MD
--- NOTE | 2021-11-12 19:12 | DI.VRAD_ITS ---
PROCEDURE INFORMATION: Exam: CT Cervical Spine Without Contrast Exam date and time: 11/12/2021 6:38 PM Age: 56 years old Clinical indication: Injury or trauma; Blunt trauma; Injury date: 11/12/21; Injury details: Fall, cant feel legs TECHNIQUE: Imaging protocol: Computed tomography images of the cervical spine without contrast. Radiation optimization: All CT scans at this facility use at least one of these dose optimization techniques: automated exposure control; mA and/or kV adjustment per patient size (includes targeted exams where dose is matched to clinical indication); or iterative reconstruction. COMPARISON: CT HEAD CERVICAL SPINE WO 12/27/2020 8:47 PM FINDINGS: Bones/joints: There is arthrosis involving the anterior atlantodental interval with loss of joint space and marginal osteophyte formation and the odontoid process is grossly intact. There are mild anterolistheses of C2 upon C3, C3 upon C4, C4 upon C5 and C7 upon T1 and there is gross preservation of vertebral body height throughout cervical levels with no vertebral body fractures or other significant subluxations detected. Changes of facet arthropathy are most advanced to the right of midline at C2-C3 and C7-T1 and no acute fractures are detected involving the posterior elements of the cervical spine. Discs/Spinal canal/Neural foramina: Loss of disc space height with posterior osteocartilaginous ridging is most significant at C6-C7 resulting in asymmetric canal stenosis and suspected mass-effect upon the ventral cord which could be better evaluated with MRI. Uncovertebral and facet changes produce foraminal distortions/narrowings at multiple levels. Lungs: No pneumothorax or consolidation detected at the lung apices. Soft tissues: Unremarkable. IMPRESSION: Chronic cervical spondylosis with central canal and foraminal narrowing as above. No acute cervical fractures are detected. Dictated and Authenticated by: Huber Álvarez MD. Ordering:CAMI Houser MD
--- NOTE | 2021-11-12 19:14 | DI.VRAD_ITS ---
PROCEDURE INFORMATION: Exam: CT Thoracic Spine Without Contrast Exam date and time: 11/12/2021 6:40 PM Age: 56 years old Clinical indication: Injury or trauma; Blunt trauma (contusions or hematomas); Injury date: 11/12/21; Injury details: Fall, cant feel legs TECHNIQUE: Imaging protocol: Computed tomography images of the thoracic spine without contrast. Radiation optimization: All CT scans at this facility use at least one of these dose optimization techniques: automated exposure control; mA and/or kV adjustment per patient size (includes targeted exams where dose is matched to clinical indication); or iterative reconstruction. COMPARISON: CT THORACIC LUMBAR SPINE REC 12/27/2020 8:57 PM FINDINGS: Vertebrae: Mild spondylosis noted. Vertebral body height is well preserved. There is no evidence for acute fracture. Old left distal clavicular fracture noted. Discs/Spinal canal/Neural foramina: No significant disc protrusion. No severe spinal canal stenosis. No significant neural foraminal narrowing. Soft tissues: Unremarkable. Vasculature: Mild atherosclerotic change present in the vasculature. Heart: Coronary artery calcifications/stents noted. Liver: Fatty liver. Kidneys and ureters: Right renal calculus. IMPRESSION: No evidence for acute posttraumatic abnormality. Dictated and Authenticated by: Ramya Duenas MD. Ordering:CAMI Houser MD
--- NOTE | 2021-11-12 19:16 | DI.VRAD_ITS ---
PROCEDURE INFORMATION: Exam: CT Lumbar Spine Without Contrast Exam date and time: 11/12/2021 6:40 PM Age: 56 years old Clinical indication: Injury or trauma; Blunt trauma (contusions or hematomas); Injury date: 11/12/21; Injury details: Fall, cant feel legs TECHNIQUE: Imaging protocol: Computed tomography images of the lumbar spine without contrast. Radiation optimization: All CT scans at this facility use at least one of these dose optimization techniques: automated exposure control; mA and/or kV adjustment per patient size (includes targeted exams where dose is matched to clinical indication); or iterative reconstruction. COMPARISON: MR LUMBAR SPINE WO 10/14/2021 11:50 AM FINDINGS: Vertebrae: See Discs/Spinal canal/Neural foramina finding. Discs/Spinal canal/Neural foramina: The pedicles appear congenitally shortened with mild multilevel canal stenosis, congenital variant. Vertebral body height is well preserved without evidence for fracture. Mild, diffuse spondylosis noted. Liver: Fatty liver. Kidneys and ureters: Nonobstructing bilateral renal calculi. Bladder: There may be mild bladder distention. Vasculature: Moderate atherosclerotic change noted in the vasculature. Soft tissues: Unremarkable. 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 No evidence for fracture. Dictated and Authenticated by: Ramya Duenas MD. Ordering:CAMI Houser MD
[2021-11-12 19:39] VITALS: BP 129/78; PULSE 76; RESP 17; O2SAT 97
== END 2021-11-12 19:40 | disposition home or self-care (01) ==
LOC: ER 19:47
PROVIDERS: Emergency Provider Emergency Medicine; PCP Nurse Practitioner Family
DX: F10.129 Alcohol abuse with intoxication, unspecified (principal); Y90.8 Blood alcohol level of 240 mg/100 ml or more; R20.0 Anesthesia of skin; W18.39XA Other fall on same level, initial encounter; R41.82 Altered mental status, unspecified
CPT/HCPCS: 80053; 96372; 99284; 70450; 72125; 72128; 72131; 80320; 85025

== ENCOUNTER 2022-03-13 15:02 | Emergency (ER) | payer MEDICAID, SELFPAY ==
[2022-03-13 15:05] VITALS: PULSE 88; RESP 16; TEMP 36.4; O2SAT 100
--- NOTE | 2022-03-13 15:15 | DI.CT_ITS ---
Exam(s) CT CHEST/ABD/PEL W EXAM: CT CHEST/ABD/PEL W CLINICAL HISTORY: L lower rib pain, LUQ pain. TECHNIQUE: Imaging Protocol: Axial computed tomography images with coronal and sagittal reformatted images were created and reviewed CONTRAST MATERIAL: Intravenous: Omnipaque 350 Contrast volume:100 ml Oral: None COMPARISON: CT CT THORACIC LUMBAR SPINE REC from 12/27/2020 FINDINGS: CHEST: LUNGS: No infiltrates nor pleural effusions. No contusion. No pneumothorax.. MEDIASTINUM: No evidence of mediastinal hematoma nor sternal fracture. Visualized thyroid unremarkab le. No mediastinal nor hilar adenopathy. No hiatal hernia. CARDIAC: Heart size is normal. There is no pericardial effusion.Thoracic aorta appears unremarkable. No trauma. No dissection. OSSEOUS: There is an acute appearing mildly displaced fracture of the left 11th rib posteriorly. Sub tle nondisplaced fracture of the posterior medial aspect of the ipsilateral 12th rib. Healed fractur e of the ipsilateral left clavicle. No right-sided fractures. No vertebral compression fractures. ABDOMEN: There is no ascites. LIVER: No patent lacerations. However, the liver is steatotic and enlarged. No focal hepatic lesion s. GALLBLADDER/BILIARY: There is a tiny focal area of of the wall of the gallbladder fundus. This does not have the appearance of a calculus. Ultrasound recommended . CBD not dilated. PANCREAS: No evidence of pancreatic mass nor dilatation of the pancreatic duct. SPLEEN: No splenic laceration. Spleen spleen size normal. Splenic granulomas noted. Splenic and po rtal veins are patent. ADRENALS: There are no significant adrenal masses. KIDNEYS: There are 2 benign cysts in left kidney. The larger of these 2 cysts is in the upper pole a nd measures 2.4 cm. No cysts in the opposite-right kidney. No solid renal masses. No calculi. No hydronephrosis. No hydroureter.. ABDOMINAL AORTA: Abdominal aorta is not enlarged. LYMPH NODES: There is no retroperitoneal nor paraaortic adenopathy. ABDOMINAL WALL: No evidence of significant anterior abdominal wall nor inguinal hernia. GI: There is no evidence of bowel obstruction.There is sigmoid diverticuli but no evidence of obvious acute diverticulitis. PELVIS: LYMPH NODES: There is no intrapelvic nor inguinal adenopathy. GI: No evidence of appendicitis.As above. URINARY BLADDER: Urinary bladder is slightly distended. No discrete mass. REPRODUCTIVE: Prostate size is normal. Seminal vesicles unremarkable. There is no obturator adenopa thy. OSSEOUS: No significant osseous lesions. IMPRESSION: 1. Displaced fracture of the left 11th rib posteriorly and nondisplaced fracture of the ipsilateral l eft 12th rib. No lung contusion nor pneumothorax evident. No other significant intrathoracic findin gs. 2. Tiny focus of density in the gallbladder fundus which does not have the appearance of a typical ca lculus. Ultrasound recommended to determine if there is a small mass at this level. 3. No significant trauma sequelae in the abdomen and pelvis. 4. Hepatic steatosis is noted. Benign renal cysts. RADIATION DOSE DELIVERED: 1431.08 mGy.cm Total DLP DATA REPOSITORY: All CT scans at this facility are submitted to the National Radiology Data Registry (NRDR) Dose Index Registry (DIR) with the [employer] ([employer]). RADIATION OPTIMIZATION: All CT scans at this facility use at least one of these dose optimization te chniques: automated exposure control; mA and/or kV adjustment per patient size (includes targeted exa ms where dose is matched to clinical indication); or iterative reconstruction.
--- NOTE | 2022-03-13 15:15 | DI.RAD_ITS ---
Exam(s) XR KNEE LT 3V AP,LAT,GABRIEL EXAM: XR KNEE LT 3V AP,LAT,GABRIEL CLINICAL HISTORY: pain with ROM, r/o fx. TECHNIQUE: 2D digital imaging was performed. COMPARISON: CR,XR XR KNEE RT 3V AP,LAT,GABRIEL from 12/27/2020 FINDINGS: 3 views No evidence of fracture or obvious joint effusion. No obvious degenerative changes. No osseous lesi ons. Bone density normal. IMPRESSION: No significant findings. DATA REPOSITORY: RADIATION DOSE DELIVERED:
--- NOTE | 2022-03-13 15:16 | DI.CT_ITS ---
Exam(s) CT THORACIC LUMBAR SPINE REC EXAM: CT THORACIC LUMBAR SPINE REC CLINICAL HISTORY: s/p fall, r/o fx TECHNIQUE: COMPARISON: CT CT CHEST/ABD/PEL W from 03/13/2022 FINDINGS: THORACIC SPINAL COLUMN: No compression fractures. No listhesis. No facet malalignment. No acute co mpromise of the spinal canal. LUMBOSACRAL SPINAL COLUMN: No compression fractures. No listhesis. No facet malalignment. No acute compromise of the spinal patel l. Advanced disc space narrowing at L4-5 level noted. Multilevel facet joint degenerative changes. Sacroiliac joints unremarkable. IMPRESSION: No acute fractures in the thoracic and lumbar spinal columns. No malalignment. No acute compromise of the spinal canal.
--- NOTE | 2022-03-13 15:22 | ED.GENADUL_ITS ---
Discharge Plan Disposition Patient Disposition: HOME Condition: Stable Discharge Details Clinical Impression: Fracture, ribs, Alcohol intoxication Primary Care Provider: Celina Johnson ED Provider: Shantal Jennings Home Meds and New Rx's Prescriptions: Continued budesonide-formoterol [Symbicort] 160-4.5 mcg/actuation HFA aerosol inhaler 1 puff IH BID albuterol sulfate [ProAir HFA] 90 mcg/actuation HFA aerosol inhaler 1 - 2 puff IH .COMPLEX PRN Label Comments: 1 - 2 puff IH Q4-Q6 PRN; Rx Instructions: 1 - 2 puff IH Q4-Q6 PRN; gabapentin 800 mg tablet 800 mg PO TID Label Comments: TAKE 1 TABLET BY MOUTH THREE TIMES DAILY mirtazapine 15 mg tablet 15 mg PO HS amitriptyline 50 mg tablet 50 tab PO HS Label Comments: TAKE 1 TABLET BY MOUTH AT BEDTIME Discharge Instructions Instructions: Rib Fracture (ED), Alcohol Intoxication (ED) Additional Instructions: Your imaging today showed that you have rib fractures of your 11th and 12th ribs on the left side. Drink plenty of fluids and get plenty of rest. Alternate tylenol and motrin as needed and directed for pain. Use your incentive parameter that you have at home to ensure that you take deep breaths to prevent the development of pneumonia. Follow-up with your primary care doctor in 1 week. Return to the emergency department with any worsening or new concerning symptoms. Discharge Data Discharge Date/Time-TO BE ENTERED AT DEPARTURE: 03/13/22 18:22 Discharge Physician: Shantal Jennings Medical Decision Making 56-year-old male with a history of alcohol abuse, GERD, anxiety, COPD presents for left lower rib pain after fall down 3 stairs 4 days ago. He states he drank 6 tall boys today. Patient intoxicated on arrival. Vitals within normal limits. He has reproducible tenderness to palpation to the left lower ribs. His lungs are clear bilaterally and abdomen soft and nontender. He also admits to pain in his left knee with range of motion but has no evidence of trauma or ligamentous laxity. Neurovascularly intact. No midline spinal tenderness. As patient is intoxicated, will obtain CT chest to pelvis with thoracic and lumbar recons. He denies any report of head injury and there is no evidence of head or neck trauma and his injury was 4 days ago so we will hold on head and C-spine imaging. Imaging reviewed and notes left-sided #11 and 12 rib fractures with very small left pleural effusion but no evidence of pneumothorax. Patient is requesting to go home. Patient has been hemodynamically stable. Case discussed with Dr. Smart who notes that the small pleural effusion could possibly be a small hemothorax but as patient is hemodynamically stable, reasonable for discharge home at this time. Patient states he has an incentive spirometer at home. RCT was called for a ride home. Advised to follow up with the primary care doctor for re-evaluation. Usual and customary return precautions given prior to discharge. Medical Records Medical records reviewed: Yes I reviewed the patient's medical records. Imaging Data Radiologic Study: Radiologist's impression: XR Left Knee Exam date and time: 03/13/2022 3:56 PM Age: 56 years old Clinical indication: Other: Pain with rom, R/O FX TECHNIQUE: Imaging protocol: Radiologic exam of the Left knee. Views: 3 views. COMPARISON: No relevant prior studies available. FINDINGS: Bones/joints: No acute fracture or dislocation is identified. There is a very small superior patellar enthesophyte. The medial compartment is mildly narrowed. There is no osseous erosion or cortical destruction. Soft tissues: The soft tissues, including in the suprapatellar region, appear grossly unremarkable. IMPRESSION: 1. No acute fracture or dislocation identified. 2. Degenerative changes as described. CT Chest With Contrast; Diagnostic Exam date and time: 03/13/2022 3:47 PM Age: 56 years old Clinical indication: Other: L lower rib pain, luq pain; Other: R/O rib FX, spleen injury TECHNIQUE: Imaging protocol: Diagnostic computed tomography of the chest with contrast. Contrast material: OMNIPAQUE 350; Contrast volume: 100 ml; Contrast route: INTRAVENOUS (IV);? COMPARISON: CT CHEST/ABD/PEL W 12/27/2020 8:57 PM FINDINGS: Lungs: Mild dependent atelectasis is present bilaterally. There is mild scarring at the lung apices, along with very mild apical emphysematous disease. No airspace consolidation. The central airways appear patent. Pleural spaces: A very small left pleural effusion has developed. No right effusion. No pneumothorax. Heart: Coronary artery calcifications are again present. No pericardial effusion or cardiomegaly. Mediastinal space: No mediastinal hematoma is identified. Lymph nodes: Unremarkable. No enlarged lymph nodes. Vasculature: The thoracic aorta is nonaneurysmal. Atherosclerotic vascular calcifications are again present. Bones/joints: Degenerative changes again involve the spine. Chronic fracture again involves the left clavicle. An acute, moderately displaced fracture involves the left 11th rib posteriorly, and an acute, nondisplaced fracture involves the left 12th rib medially. Soft tissues: Unremarkable. IMPRESSION: 1. Acute, moderately displaced fracture of the left 11th rib posteriorly with acute, nondisplaced fracture of the left 12th rib medially. 2. Very small left pleural effusion. CT Abdomen And Pelvis With Contrast Exam date and time: 03/13/2022 3:47 PM Age: 56 years old Clinical indication: Other: L lower rib pain, luq pain; Other: R/O rib FX, spleen injury TECHNIQUE: Imaging protocol: Computed tomography of the abdomen and pelvis with contrast. Contrast material: OMNIPAQUE 350; Contrast volume: 100 ml; Contrast route: INTRAVENOUS (IV);? COMPARISON: CT CHEST/ABD/PEL W 12/27/2020 8:57 PM FINDINGS: Liver: The liver is again fatty in density. It appears otherwise unremarkable. Gallbladder and bile ducts: No gallstones are evident, but ultrasound would be more sensitive. No gross biliary ductal dilatation. Pancreas: Normal. No ductal dilation. Spleen: The spleen again contains calcified granulomas. It appears otherwise unremarkable. Adrenal glands: Normal. No mass. Kidneys and ureters: The right kidney appears unremarkable. The left kidney again contains cysts. It appears otherwise unremarkable. Stomach and bowel: The unopacified small bowel is not significantly distended to suggest obstruction. There is again mild sigmoid colonic diverticulosis without evidence for diverticulitis. Appendix: No evidence of appendicitis. Intraperitoneal space: No free air or significant free fluid. Vasculature: The abdominal aorta is nonaneurysmal. Atherosclerotic vascular calcifications are again present. Lymph nodes: Unremarkable. No enlarged lymph nodes. Urinary bladder: The urinary bladder is distended. Reproductive: Unremarkable as visualized. Bones/joints: Unremarkable. No acute fracture. Soft tissues: There is mild subcutaneous edema over the upper left flank without discrete hematoma. IMPRESSION: 1. No evidence for acute intra-abdominal or pelvic injury. See above chest CT report for rib and intrathoracic findings. 2. Distended urinary bladder, significance uncertain. 3. Nonurgent findings similar to 12/27/2020. CT Thoracic Spine Without Contrast Exam date and time: 03/13/2022 3:47 PM Age: 56 years old Clinical indication: Other: S/P fall, R/O FX TECHNIQUE: Imaging protocol: Computed tomography of the thoracic spine without contrast. COMPARISON: CT THORACIC SPINE WO 11/12/2021 6:40 PM FINDINGS: Bones/joints: Vertebral body heights are intact. Alignment is maintained. No acute fracture is identified. There is multilevel spondylosis with variable osteophytic encroachment of several neural foramina. CT is not optimal for the evaluation of the discs, neural foramina or spinal canal or cord. No significant spinal stenosis is evident, in the appearance is not significantly changed. Soft tissues: There is no significant paraspinal hematoma. Vasculature: Atherosclerotic vascular calcifications are again present. Lungs: The visualized lungs demonstrate mild dependent atelectasis. IMPRESSION: 1. No acute fracture or dislocation identified. 2. Spondylosis without significant change since 11/12/2021. COMMENTS: Contrast is present relating to other studies being concurrently performed. CT Lumbar Spine Without Contrast Exam date and time: 03/13/2022 3:47 PM Age: 56 years old Clinical indication: Other: S/P fall, R/O FX TECHNIQUE: Imaging protocol: Computed tomography of the lumbar spine without contrast. COMPARISON: CT LUMBAR SPINE WO 11/12/2021 6:40 PM FINDINGS: Bones/joints: Vertebral body heights are intact. Alignment is maintained. No pars defect is identified. No acute fracture is identified. There is multilevel disc space narrowing, facet arthrosis and marginal osteophyte formation with variable narrowing of several neural foramina. CT is not optimal for the evaluation of the discs, neural foramina or spinal canal or cord. The appearance is not significantly changed. Vasculature: Atherosclerotic vascular calcifications are again present. Soft tissues: There is no significant paraspinal hematoma. IMPRESSION: 1. No acute fracture or dislocation identified. 2. Spondylosis without significant change since 11/12/2021. Lab Data Lab results reviewed: Yes I reviewed the patient's lab results. Labs: Laboratory Tests Range/Units 03/13/22 03/13/22 03/13/22 16:36 16:36 16:36 WBC (4.4-10.8) 10^3/uL 8.22 RBC (4.36-5.78) 10^6/uL 4.68 Hgb (13.5-17.5) g/dL 16.1 Hct (40.0-50.0) % 47.6 MCV (80-95) fL 102 H MCH (27.0-33.0) pg 34.4 H MCHC (32.0-36.0) % 33.8 RDW (11.8-14.1) % 14.7 H Plt Count (130-400) 10^3/uL 215 MPV (8.0-11.0) fL 11.1 H Immature Gran % 1.3 Neutrophils % 64.9 Lymphocytes % 18.4 Monocytes % 10.3 Eosinophils % 3.6 Basophils % 1.5 Nucleated RBC % (0.0-0.3) % 0.0 Absolute Neutrophils (1.2-6.7) 10^3/uL 5.33 Absolute Lymphocytes (1.2-3.4) 10^3/uL 1.51 Absolute Monocytes (0.1-0.8) 10^3/uL 0.85 H Absolute Eosinophils (0.0-0.7) 10^3/uL 0.30 Absolute Basophils (0.0-0.2) 10^3/uL 0.12 Sodium (136-145) mmol/L 136 Potassium (3.5-5.1) mmol/L 3.5 Chloride (98-107) mmol/L 98 Carbon Dioxide (21.0-32.0) mmol/L 27.9 Anion Gap (3-11) mmol/L 10.1 BUN (7-18) mg/dL 7 Creatinine (0.70-1.30) mg/dL 0.7 Est GFR (CKD-EPI 2020) (mL/min/1.73m2) 106.80 Glucose (74-106) mg/dL 84 Calcium (8.5-10.1) mg/dL 8.8 Magnesium (1.8-2.4) mg/dL 2.2 Total Bilirubin (0.2-1.0) mg/dL 0.6 AST (15-37) U/L 101 H ALT (16-63) U/L 98 H Alkaline Phosphatase (46-116) U/L 126 H Troponin I (<or=60) ng/L < 50 Total Protein (6.4-8.2) g/dL 8.4 H Albumin (3.4-5.0) g/dL 3.6 Lipase (73-393) U/L 218 Ethyl Alcohol (<10) mg/dL 244.2 H HPI General Mode of arrival: ambulatory . Date/Time Provider Initiated Documentation: 03/13/22 15:16 . Limitations to Documentation: no limitations . Information obtained by: patient . HPI Narrative: Pt is a 56yo M with a h/o alcohol abuse who presents to the ED with a complaint of left lower rib pain after fall down 3 steps 4 days ago. Patient states he fell onto his left side onto the hard ground. He denies any head injury, headache, LOC, neck pain or dizziness. He states he has not taken any medication for pain He states he drank 6 tall boys today. Patient states he decided to call an ambulance today due to persistent left lower rib pain. Patient denies any anterior chest pain, abdominal pain, difficulty breathing, nausea, vomiting or urinary symptoms. He states he has not had a bowel movement since his injury. Related Data Home Medications Medication Instructions Recorded Confirmed albuterol sulfate 90 mcg/actuation 1 - 2 puff inhalation .COMPLEX PRN 08/23/18 03/13/22 aerosol inhaler (ProAir HFA) budesonide-formoterol HFA 160 1 puff inhalation BID 08/23/18 03/13/22 mcg-4.5 mcg/actuation aerosol inhaler (Symbicort) gabapentin 800 mg tablet 800 mg PO TID 11/12/21 03/13/22 mirtazapine 15 mg tablet 15 mg PO HS 11/12/21 03/13/22 amitriptyline 50 mg tablet 50 tab PO HS 03/13/22 03/13/22 Allergies Allergy/AdvReac Type Severity Reaction Status Date / Time meloxicam AdvReac Intermediate Nausea Unverified 03/13/22 15:11 General Stated Complaint: Trauma EMORY: 2 Review of Systems All systems reviewed & are unremarkable except as noted in HPI and below Constitutional Constitutional: Denies chills, Denies excessive sweating, Denies fatigue, Denies fever(s), Denies weakness and Denies weight loss Eyes Eyes: Reports system reviewed and no additional complaints, except as documented and Denies blurry vision ENT Ears, Nose, Mouth, and Throat: Denies vertigo, Denies dizziness, Denies otalgia, Denies nasal congestion, Denies sore throat and Denies throat swelling Cardiovascular Cardiovascular: Denies chest pain, Denies syncope, Denies rapid heart rate and Denies dyspnea Respiratory Respiratory: Denies chest congestion, Denies cough, Denies pain on inspiration and Denies dyspnea Gastrointestinal Gastrointestinal: Denies abdominal pain, Denies diarrhea and Denies vomiting Genitourinary Genitourinary: Denies hematuria, Denies dysuria and Denies flank pain Musculoskeletal Musculoskeletal: Reports back pain and Denies joint swelling Integumentary/Breasts Skin/Breast: Denies lesions and Denies rash Neurologic Neurologic: Denies behavioral changes, Denies confusion, Denies vertigo, Denies dizziness, Denies syncope, Denies localized weakness and Denies weakness Psychiatric Psychiatric: Denies behavioral changes, Denies confusion and Denies depression Endocrine Endocrine: Denies excessive sweating and Denies fatigue Hematologic/Lymphatic Hematologic/Lymphatic: Denies easy bruising and Denies lymphadenopathy Allergic/Immunologic Allergic/Immunologic: Denies throat swelling PFSH All Active Problems (Updated 03/13/22 @ 18:11 by Shantal Jennings DO) Fracture, ribs (Acute) Alcohol intoxication (Acute) Trauma (Acute) Acute alcohol intoxication (Acute) Rotatory subluxation of atlantoaxial joint (Acute) Fracture of nasal bone (Acute) Lumbar radiculopathy, right (Chronic) Left lumbar radiculitis (Chronic) Spondylosis of lumbar region without myelopathy or radiculopathy (Chronic) Medical History (Updated 03/13/22 @ 18:11 by Shantal Jennings DO) Aggression Alcohol abuse, in remission Anxiety Anxiety Back pain Bilateral ankle fractures Chronic cough Chronic knee pain Chronic left shoulder pain Chronic pain COPD (chronic obstructive pulmonary disease) Depression Edentulous Elevated blood pressure reading Fatigue GERD (gastroesophageal reflux disease) Headache Herniated disc Homeless Hx of fracture of nose Hydrocele, left Insomnia Onychomycosis Peripheral neuropathy Spondylosis of lumbar spine Tobacco use disorder Ulna fracture Surgical History (System 05/25/19 @ 14:47 by Esther Gregory) Colonoscopy - MAC (05/30/17) repair fractured ankels repair hyrocele repair of thumb Social History (System 05/25/19 @ 14:47 by Esther Gregory) Smoking/Tobacco Use Status: Current every day Tobacco Type: cigarettes Smoking risk assessment performed?: Yes Alcohol Intake: current Alcohol Intake frequency: a few times a week Alcohol type: beer Drug use: Daily Substance use type: marijuana Do you feel safe at home: Yes Do you feel safe in your relationship?: Yes Exam Const General: cooperative and intoxicated appearing Orientation: alert, awake and oriented x3 HENMT Head: normal to inspection Ears: hearing grossly normal bilaterally, external ears normal and TM's normal bilaterally General nose exam: external nose normal Face and sinus: normal facial exam Mouth: oral mucosae normal Teeth and gingiva: dentition normal Throat: posterior oropharynx normal Eyes General: appearance normal, both eyes and all related structures Eyelids: eyelids normal Pupils: PERRL EOM: EOM intact bilaterally Neck Neck: normal visual inspection Lymphatic: no lymphadenopathy noted Chest Chest: normal inspection of the chest Resp Effort & Inspection: normal respiratory effort and able to speak in complete sentences Auscultation: clear to auscultation bilaterally Cardio Rate: regular rate Rhythm: regular rhythm GI Inspection: normal to inspection Palpation: soft, not firm, no guarding, no hepatosplenomegaly, no masses and n ontender Auscultation: normal bowel sounds Back/Spine/Pelvis Back/spine/pelvis image: 1. Tenderness to palpation to left inferior posterior lateral ribs. There is no evidence of edema, erythema, ecchymosis, rash, crepitus or lesions. Neuro General: patient alert and patient awake Cognition: normal cognition Speech: speech normal Gait: normal gait Motor: muscle tone normal throughout Sensory Exam: no sensory deficits noted Extrem General: normal to inspection, full ROM and capillary refill normal Other: Pain in left knee with range of motion. No pain with range of motion in any other extremity. No deformity. Psych Appearance: grossly normal Mental Status: mental status grossly normal Speech and Movement: speech and movement normal Affect: normal affect Thought Process: normal Course Vital Signs Vital signs: Vital Signs Temperature 97.5 F L 03/13/22 15:05 Pulse 88 03/13/22 15:05 Respiratory Rate 16 03/13/22 15:05 Pulse Oximetry 100 03/13/22 15:05 Temperature 97.5 F L 03/13/22 15:05 Temperature Source Temporal Artery Scan 03/13/22 15:05 Pulse 88 03/13/22 15:05 Respiratory Rate 16 03/13/22 15:05 Respiratory Effort 03/13/22 15:16 Blood Pressure Position Sitting 03/13/22 15:05 Pulse Oximetry 100 03/13/22 15:05 Oxygen Delivery Method Room Air 03/13/22 15:05 Oxygen Flow Rate 0 03/13/22 15:05 PAWSS Have you Been Recently Intoxicated or Drunk Within the Last 30 days?: Yes Have you Ever Experienced Previous Episodes of Alcohol Withdrawal?: Yes Have you ever Experienced Withdrawal Seizures?: No Have you ever Experienced Delirium Tremens(DT)s?: No Have you ever undergone Alcohol Rehabilitation Treatment (i.e, inpt ot outp atient treatment programs)?: No Have you ever Experienced Blackouts?: Yes Have you ever Combined Alcohol with other Downers within the last 90 days?: No Have you ever Combined Alcohol with any other Substance of Abuse during the last 90 days?: No Positive Blood Alcohol level on Presentation? [PCS.BAL]: No Result: 3
[2022-03-13] MEDS: Omnipaque 350 MG/ML 100 ML BTL IJ (15:54)
[2022-03-13] MEDS: Normal Saline Flush 10 ML SYR IVP (15:55)
--- NOTE | 2022-03-13 16:19 | DI.VRAD_ITS ---
PROCEDURE INFORMATION: Exam: XR Left Knee Exam date and time: 03/13/2022 3:56 PM Age: 56 years old Clinical indication: Other: Pain with rom, R/O FX TECHNIQUE: Imaging protocol: Radiologic exam of the Left knee. Views: 3 views. COMPARISON: No relevant prior studies available. FINDINGS: Bones/joints: No acute fracture or dislocation is identified. There is a very small superior patellar enthesophyte. The medial compartment is mildly narrowed. There is no osseous erosion or cortical destruction. Soft tissues: The soft tissues, including in the suprapatellar region, appear grossly unremarkable. IMPRESSION: 1. No acute fracture or dislocation identified. 2. Degenerative changes as described. Dictated and Authenticated by: Catarino Hall MD. Ordering:SHAYY Murguia MD
--- NOTE | 2022-03-13 16:37 | DI.VRAD_ITS ---
PROCEDURE INFORMATION: Exam: CT Thoracic Spine Without Contrast Exam date and time: 03/13/2022 3:47 PM Age: 56 years old Clinical indication: Other: S/P fall, R/O FX TECHNIQUE: Imaging protocol: Computed tomography of the thoracic spine without contrast. COMPARISON: CT THORACIC SPINE WO 11/12/2021 6:40 PM FINDINGS: Bones/joints: Vertebral body heights are intact. Alignment is maintained. No acute fracture is identified. There is multilevel spondylosis with variable osteophytic encroachment of several neural foramina. CT is not optimal for the evaluation of the discs, neural foramina or spinal canal or cord. No significant spinal stenosis is evident, in the appearance is not significantly changed. Soft tissues: There is no significant paraspinal hematoma. Vasculature: Atherosclerotic vascular calcifications are again present. Lungs: The visualized lungs demonstrate mild dependent atelectasis. IMPRESSION: 1. No acute fracture or dislocation identified. 2. Spondylosis without significant change since 11/12/2021. COMMENTS: Contrast is present relating to other studies being concurrently performed. PROCEDURE INFORMATION: Exam: CT Lumbar Spine Without Contrast Exam date and time: 03/13/2022 3:47 PM Age: 56 years old Clinical indication: Other: S/P fall, R/O FX TECHNIQUE: Imaging protocol: Computed tomography of the lumbar spine without contrast. COMPARISON: CT LUMBAR SPINE WO 11/12/2021 6:40 PM FINDINGS: Bones/joints: Vertebral body heights are intact. Alignment is maintained. No pars defect is identified. No acute fracture is identified. There is multilevel disc space narrowing, facet arthrosis and marginal osteophyte formation with variable narrowing of several neural foramina. CT is not optimal for the evaluation of the discs, neural foramina or spinal canal or cord. The appearance is not significantly changed. Vasculature: Atherosclerotic vascular calcifications are again present. Soft tissues: There is no significant paraspinal hematoma. IMPRESSION: 1. No acute fracture or dislocation identified. 2. Spondylosis without significant change since 11/12/2021. COMMENTS: Contrast is present relating to other studies being concurrently performed. Dictated and Authenticated by: Catarino Hall MD. Ordering:SHAYY Murguia MD
[2022-03-13 16:46] LABS: Abs Immature Grans 0.11 10^3/uL (0.0-0.06); Absolute Basophil Count 0.12 10^3/uL (0.0-0.2); Absolute Lymphocyte Count 1.51 10^3/uL (1.2-3.4); Absolute Monocyte Count 0.85 10^3/uL (0.1-0.8); Absolute Neutrophil Count 5.33 10^3/uL (1.2-6.7); Basophils % 1.5; Eosinophils % 3.6; HCT 47.6 % (40.0-50.0); HGB 16.1 g/dL (13.5-17.5); Immature Grans % 1.3; Lymphocytes % 18.4; MCH 34.4 pg (27.0-33.0); MCHC 33.8 % (32.0-36.0); MCV 102 fL (80-95); MPV 11.1 fL (8.0-11.0); Monocytes % 10.3; Neutrophils % 64.9; Platelet Count 215 10^3/uL (130-400); RBC 4.68 10^6/uL (4.36-5.78); RDW 14.7 % (11.8-14.1); RDW-SD 55.6 fL; WBC 8.22 10^3/uL (4.4-10.8)
[2022-03-13] MEDS: Normal Saline 1,000 ML 1000 ML IV (16:47)
--- NOTE | 2022-03-13 16:52 | DI.VRAD_ITS ---
PROCEDURE INFORMATION: Exam: CT Chest With Contrast; Diagnostic Exam date and time: 03/13/2022 3:47 PM Age: 56 years old Clinical indication: Other: L lower rib pain, luq pain; Other: R/O rib FX, spleen injury TECHNIQUE: Imaging protocol: Diagnostic computed tomography of the chest with contrast. Contrast material: OMNIPAQUE 350; Contrast volume: 100 ml; Contrast route: INTRAVENOUS (IV); COMPARISON: CT CHEST/ABD/PEL W 12/27/2020 8:57 PM FINDINGS: Lungs: Mild dependent atelectasis is present bilaterally. There is mild scarring at the lung apices, along with very mild apical emphysematous disease. No airspace consolidation. The central airways appear patent. Pleural spaces: A very small left pleural effusion has developed. No right effusion. No pneumothorax. Heart: Coronary artery calcifications are again present. No pericardial effusion or cardiomegaly. Mediastinal space: No mediastinal hematoma is identified. Lymph nodes: Unremarkable. No enlarged lymph nodes. Vasculature: The thoracic aorta is nonaneurysmal. Atherosclerotic vascular calcifications are again present. Bones/joints: Degenerative changes again involve the spine. Chronic fracture again involves the left clavicle. An acute, moderately displaced fracture involves the left 11th rib posteriorly, and an acute, nondisplaced fracture involves the left 12th rib medially. Soft tissues: Unremarkable. IMPRESSION: 1. Acute, moderately displaced fracture of the left 11th rib posteriorly with acute, nondisplaced fracture of the left 12th rib medially. 2. Very small left pleural effusion. PROCEDURE INFORMATION: Exam: CT Abdomen And Pelvis With Contrast Exam date and time: 03/13/2022 3:47 PM Age: 56 years old Clinical indication: Other: L lower rib pain, luq pain; Other: R/O rib FX, spleen injury TECHNIQUE: Imaging protocol: Computed tomography of the abdomen and pelvis with contrast. Contrast material: OMNIPAQUE 350; Contrast volume: 100 ml; Contrast route: INTRAVENOUS (IV); COMPARISON: CT CHEST/ABD/PEL W 12/27/2020 8:57 PM FINDINGS: Liver: The liver is again fatty in density. It appears otherwise unremarkable. Gallbladder and bile ducts: No gallstones are evident, but ultrasound would be more sensitive. No gross biliary ductal dilatation. Pancreas: Normal. No ductal dilation. Spleen: The spleen again contains calcified granulomas. It appears otherwise unremarkable. Adrenal glands: Normal. No mass. Kidneys and ureters: The right kidney appears unremarkable. The left kidney again contains cysts. It appears otherwise unremarkable. Stomach and bowel: The unopacified small bowel is not significantly distended to suggest obstruction. There is again mild sigmoid colonic diverticulosis without evidence for diverticulitis. Appendix: No evidence of appendicitis. Intraperitoneal space: No free air or significant free fluid. Vasculature: The abdominal aorta is nonaneurysmal. Atherosclerotic vascular calcifications are again present. Lymph nodes: Unremarkable. No enlarged lymph nodes. Urinary bladder: The urinary bladder is distended. Reproductive: Unremarkable as visualized. Bones/joints: Unremarkable. No acute fracture. Soft tissues: There is mild subcutaneous edema over the upper left flank without discrete hematoma. IMPRESSION: 1. No evidence for acute intra-abdominal or pelvic injury. See above chest CT report for rib and intrathoracic findings. 2. Distended urinary bladder, significance uncertain. 3. Nonurgent findings similar to 12/27/2020. Dictated and Authenticated by: Catarino Hall MD. Ordering:SHAYY Murguia MD
[2022-03-13 17:23] LABS: ALT 98 U/L (16-63); AST 101 U/L (15-37); Albumin 3.6 g/dL (3.4-5.0); Alkaline Phosphatase 126 U/L (46-116); Anion Gap 10.1 mmol/L (3-11); BUN 7 mg/dL (7-18); Bilirubin, Total 0.6 mg/dL (0.2-1.0); CO2 27.9 mmol/L (21.0-32.0); CREATININE 0.7 mg/dL (0.70-1.30); Calcium 8.8 mg/dL (8.5-10.1); Chloride 98 mmol/L (98-107); Glucose 84 mg/dL (74-106); Lipase 218 U/L (73-393); Magnesium 2.2 mg/dL (1.8-2.4); Potassium 3.5 mmol/L (3.5-5.1); Sodium 136 mmol/L (136-145); Total Protein 8.4 g/dL (6.4-8.2); Troponin I < 50 ng/L (<or=60)
[2022-03-13 17:27] LABS: ETHANOL BLOOD 244.2 mg/dL (<10)
[2022-03-13 18:48] VITALS: PULSE 88; RESP 16; TEMP 36.4; O2SAT 100
== END 2022-03-13 18:22 | disposition home or self-care (01) ==
PROVIDERS: Emergency Provider Physician Assistant; PCP Nurse Practitioner Family
DX: S22.42XA Multiple fractures of ribs, left side, initial encounter for closed fracture (principal); W10.9XXA Fall (on) (from) unspecified stairs and steps, initial encounter; F10.129 Alcohol abuse with intoxication, unspecified; J44.9 Chronic obstructive pulmonary disease, unspecified; F17.210 Nicotine dependence, cigarettes, uncomplicated; Y90.8 Blood alcohol level of 240 mg/100 ml or more; G89.11 Acute pain due to trauma; M25.562 Pain in left knee; J90 Pleural effusion, not elsewhere classified; R10.12 Left upper quadrant pain
CPT/HCPCS: 73562; 74177; 80053; 83690; 96360; 99285; 71260; 80320; 83735; 84484; 85025; 99284; J3490

== ENCOUNTER 2022-06-15 09:15 | Outpatient (CLI) | payer MEDICAID, SELFPAY ==
--- NOTE | 2022-06-15 06:00 | DI.RAD_ITS ---
Exam(s) XR PAIN CLINIC LUMBAR SP 2V EXAM: XR PAIN CLINIC LUMBAR SP 2V CLINICAL HISTORY: Dx: Lumbar Radiculopathy TECHNIQUE: 2D and realtime digital imaging was performed. Radiologist not present. CONTRAST MATERIAL: None. COMPARISON: No exams were available for comparison FINDINGS: Fluoroscopy was provided for pain management therapy. Please refer to procedure report or details. Cumulative dose: Ka,r=3.08 mGy IMPRESSION: RADIATION DOSE DELIVERED:
[2022-06-15 09:24] VITALS: BP 161/92; PULSE 96; RESP 20; TEMP 37.2; O2SAT 100
--- NOTE | 2022-06-15 10:05 | PDOC.PAIN ---
Date of service: 06/15/22 Time of Service: 10:05 Pain Clinic Procedure Note Procedure Note Procedure Note: Lumbar Epidural Steroid Injection Procedure Note Pre-operative diagnosis: lumbar radiculopathy Post-operative diagnosis: same as above COMMENTS: patient achieved sustained pain relief from previous L5-S1 [facility]. His usual back and left leg symptoms returned and was evaluated recently by Dr Dos Santos in clinic who referred patient to have repeat LESI. Rios Ko has been referred to the [facility] for lumbar epidural steroid injection. The patient was greeted by the nurse who verified patients name and . Patient was then taken to the fluoroscopy suite. The patient was interviewed and the medial record reviewed. There were no medical, pharmacologic, radiographic, or other structural contraindications to attempting fluoroscopically guided lumbar epidural steroid injection. Risks and expected side effects as well as potential benefits of the procedure were reviewed and voiced concerns expressed. The patient consent form was signed and witnessed. Standard patient time-out procedure was performed. The patient was placed in the prone position on the fluoroscopy table and automated blood pressure cuff and pulse oximeter applied. The skin entry point for entering/approaching the epidural space by a L5-S1 and marked. Following thorough chlorhexadine preparation of the skin and draping and 1% lidocaine infiltration of the skin entry point and subcutaneous tissues, a 18 gauge 3.5'' Touhy needle was placed under fluoroscopic guidance and with loss of resistance technique into the epidural space. Needle tip placement and depth were aided and confirmed by fluoroscopy. There was no paresthesia or return of blood or CSF through the needle. 1 cc's of Omnipaque 240 was injected with clear epidural spread confirmed with fluoroscopy. 80mg depomedrol was injected, mixed with 0.5cc of 1% lidocaine. There was not any unusual discomfort expressed by Rios Ko. Patient's vital signs were stable throughout the procedure and were as recorded in nursing records. Follow up plans and appointments were discussed with patient. Post procedure instruction was given as documented in nursing records and having met discharge criteria and was discharged from the [facility]. COMMENTS: If this procedure is helpful, it can be completed up to 3 times per 12 months. Pre-procedure VAS score 5/10. Post-procedure VAS score 0/10. I performed the entire procedure. Yonatan Bernard MD Pain Management
[2022-06-15 10:07] VITALS: BP 135/92; PULSE 96; RESP 20; O2SAT 98
[2022-06-15] MEDS: methylPREDNISolone ACETATE 80 MG/ML VIAL IJ (10:12)
[2022-06-15] MEDS: Omnipaque 240 MG/ML 50 ML BTL IJ (10:13)
== END 2022-06-15 09:16 | disposition home or self-care (01) ==
LOC: PC 09:16
PROVIDERS: PCP Nurse Practitioner Family; Visit Provider Internal Medicine
DX: M54.16 Radiculopathy, lumbar region (principal)
CPT/HCPCS: 62323; 72100; J1040; Q9967

== ENCOUNTER 2022-08-26 19:57 | Emergency (ER) | payer MEDICAID, SELFPAY ==
[2022-08-26 19:52] VITALS: BP 151/90; PULSE 88; RESP 16; TEMP 36.7; O2SAT 96
--- NOTE | 2022-08-26 20:00 | DI.CT_ITS ---
Exam(s) CT HEAD CERVICAL SPINE WO EXAM: CT HEAD CERVICAL SPINE WO CLINICAL HISTORY: severe intoxication, fall, syncope, altered. TECHNIQUE: Imaging Protocol: Axial computed tomography images with coronal and sagittal reformatted images were created and reviewed COMPARISON: CT CT CERVICAL SPINE WO from 11/12/2021 FINDINGS: BRAIN: Images blurred by motion artifact. There are no obvious skull fractures nor fluid in the visualized paranasal sinuses. However, there a ppears to be nasal bone fracture, age indeterminate. There is no evidence of intracranial hemorrhage, mass effect, or shift of midline structures. There are no extra-axial fluid collections. The ventricles are not enlarged or shifted and there is no blo od within the ventricular system nor within the basal cisterns. CERVICAL SPINE: There is no evidence of fracture nor listhesis. No significant prevertebral soft tissue swelling. Multilevel chronic degenerative disc disease C5-6 and C6-7 levels. Some facet arthropathy also evide nt. There is no significant facet joint malalignment. No significant osseous lesions evident. IMPRESSION: No acute intracranial findings on this noninfused CT scan of the brain.Possible nasal bone fracture, difficult to assess accurately with the amount of motion here but correlation physical exam recommend ed. No evidence of acute cervical spine fracture, malalignment, nor acute compromise of the cervical spin al canal. RADIATION DOSE DELIVERED: 1,465.74mGy.cm Total DLP DATA REPOSITORY: All CT scans at this facility are submitted to the National Radiology Data Registry (NRDR) Dose Index Registry (DIR) with the [employer] ([employer]). RADIATION OPTIMIZATION: All CT scans at this facility use at least one of these dose optimization te chniques: automated exposure control; mA and/or kV adjustment per patient size (includes targeted exa ms where dose is matched to clinical indication); or iterative reconstruction.
--- NOTE | 2022-08-26 20:00 | DI.CT_ITS ---
Exam(s) CT CHEST/ABD/PEL W EXAM: CT CHEST/ABD/PEL W CLINICAL HISTORY: severe intoxication, fall, syncope, altered. TECHNIQUE: Imaging Protocol: Axial computed tomography images with coronal and sagittal reformatted images were created and reviewed CONTRAST MATERIAL: Intravenous: Omnipaque 350 Contrast volume:100 ml Oral: None COMPARISON: CT CT CHEST/ABD/PEL W from 03/13/[address] THORACIC LUMBAR SPINE REC from 03/13/2022 FINDINGS: CHEST: LUNGS: Mild increased markings in the medial basal segment right lower lobe. No large infiltrates. No lung contusion. No pleural effusions. No pneumothorax. There are no ominous pulmonary nodules. No significant findings in the trachea and mainstem bronchi. There is no bronchiectasis.. MEDIASTINUM: No sternal fracture. No mediastinal hematoma. No hilar nor mediastinal adenopathy evid ent. CARDIAC: Heart size is normal. There is no pericardial effusion.Caliber of the thoracic aorta is wit hin normal limits. No dissection. OSSEOUS: There is a mildly displaced fracture of the posterolateral aspect of the left 11th rib. Thi s was evident on prior CT scan 03/13/2022.No additional rib fractures. No transverse process fractur es. No compression fractures. No sternal fracture. No osseous lesions.. ABDOMEN: There is no ascites. LIVER: Hepatomegaly and hepatic steatosis are again noted. No a patent lesions evident. No a patent laceration. GALLBLADDER/BILIARY: No obvious acute gallbladder pathology. CBD is not dilated. PANCREAS: No evidence of pancreatic mass nor dilatation of the pancreatic duct. SPLEEN: Spleen is not enlarged. Splenic granulomas noted. Splenic and portal veins are patent. ADRENALS: There are no significant adrenal masses. KIDNEYS: No renal lacerations nor subcapsular hematomas. No calculi. No hydronephrosis. Few benign cysts are again noted in the left kidney. The largest measures 2.4 x 2.2 cm. These do not require follow-up. Ureters not dilated. Urinary bladder is distended but otherwise intact. No masses. No calculi noted within the urinary bladder lumen. ABDOMINAL AORTA: Abdominal aorta is not enlarged. LYMPH NODES: There is no retroperitoneal nor paraaortic adenopathy. ABDOMINAL WALL: No evidence of significant anterior abdominal wall nor inguinal hernia. GI: There is no evidence of bowel obstruction.No evidence of bowel wall nor mesenteric hematoma. PELVIS: LYMPH NODES: There is no intrapelvic nor inguinal adenopathy. GI: No evidence of appendicitis.Sigmoid diverticuli but no evidence of diverticulitis. URINARY BLADDER: Distended, as described above. REPRODUCTIVE: Prostate not enlarged. OSSEOUS: No significant osseous lesions. IMPRESSION: 1. Left 11th rib non healed fracture again noted. No new fractures identified. 2. No acute pulmonary findings. No pneumothorax. No pleural effusion. 3. Distended urinary bladder. No bladder mass seen. Prostate size normal. No hydronephrosis 4. Hepatic steatosis again noted. No acute intra-abdominal nor intrathoracic findings. RADIATION DOSE DELIVERED: 2,542.96mGy.cm Total DLP DATA REPOSITORY: All CT scans at this facility are submitted to the National Radiology Data Registry (NRDR) Dose Index Registry (DIR) with the [employer] ([employer]). RADIATION OPTIMIZATION: All CT scans at this facility use at least one of these dose optimization te chniques: automated exposure control; mA and/or kV adjustment per patient size (includes targeted exa ms where dose is matched to clinical indication); or iterative reconstruction.
--- NOTE | 2022-08-26 20:00 | RT.EKG_ITS ---
APPROVED REPORT Exam: Resting ECG Reason for Exam: syncope Patient Location: E HR:87 bpm ECG Measurements Heart Rate [address] 147 P 54 QRSd 83 QRS 27 QT 366 T 39 QTc 440 Conclusion Sinus rhythm...normal P axis, V-rate 60- 99 Physician: no stemi
--- NOTE | 2022-08-26 20:06 | ED.GENADUL_ITS ---
Discharge Plan Disposition Patient Disposition: Home Discharge Details Chief Complaint: ETOHWithdr Clinical Impression: ETOHism Primary Care Provider: Celina Johnson ED Provider: Godwin Griffin Home Meds and New Rx's Prescriptions: No Action budesonide-formoterol [Symbicort] 160-4.5 mcg/actuation HFA aerosol inhaler 1 puff IH BID albuterol sulfate [ProAir HFA] 90 mcg/actuation HFA aerosol inhaler 1 - 2 puff IH .COMPLEX PRN Patient Comments: 1 - 2 puff IH Q4-Q6 PRN; Rx Instructions: 1 - 2 puff IH Q4-Q6 PRN; gabapentin 800 mg tablet 800 mg PO TID Patient Comments: TAKE 1 TABLET BY MOUTH THREE TIMES DAILY mirtazapine 15 mg tablet 15 mg PO HS amitriptyline 50 mg tablet 50 tab PO HS Patient Comments: TAKE 1 TABLET BY MOUTH AT BEDTIME Discharge Instructions Additional Instructions: Please diminish her use of alcohol. If you notice any worsening of your symptoms, or any new symptoms such as vomiting, diarrhea, fever, chills, shortness of breath, chest pain, numbness, weakness, or fainting , please return immediately to the emergency department for reevaluation. Please follow up with your primary care provider as soon as possible for reassessment and reevaluation. As always, it was a pleasure participating in your medical care today. Referrals: Celina Johnson [Primary Care Provider] - Medical Decision Making This is a 56-year-old male with past medical history of severe chronic alcoholism, anxiety, depression, who presents today for evaluation of intoxication. EMS reports that at around 4 PM the patient went up to his upstairs neighbors room, he was extremely intoxicated at that time, and then he and his neighbor continued to drink 4x Pounders. Later this evening at around 7 PM his intoxicated roommate called 911 because he had passed out and had fallen onto the ground. When EMS arrived he was notably confrontational, and initially refused to go to the ER. He was clearly intoxicated. He did try to stand up and passed out again. He does not add anything else to the history secondary to his intoxicated state. He is not on blood thinners. EMS states that his oxygen was around 88% but improved to the mid 90s on 2 L of supplemental oxygen. No other complaints at this time. Physical exam demonstrates a notably intoxicated male. No focal deficits to suggest stroke though. When asked to smile and raise up his arms for neuro assessment he is able to do so promptly but does proceed to give myself and nursing staff the middle finger from both hands during the assessment. No other signs of focal trauma. No other significant abnormalities. Suspect intoxication to be the primary etiology, however differential does include cardiac etiology, and less likely intracranial etiology. We will get a CAT scan of his head neck chest abdomen pelvis secondary to his intoxicated state, his fall, and the limitations on assessment and exam. We will get laboratory work- up, rehydrate, monitor closely and reassess. 10:08 PM Laboratory work-up has returned and is stable. No bandemia. No significant white count. Electrolytes stable. Mild elevation in his transaminases, which does appear to be at baseline. Troponin normal, thyroid function normal. EKG stable. Urinalysis negative, UDS is positive for cannabis. Alcohol is 347. CT scan of the head neck is negative for acute process. He does have an old fractured rib, no other acute process. Patient otherwise stable. He is intoxic ated. We will continue to monitor and rehydrate. He did rip out his IV. 11 PM Patient is still notably intoxicated but very stable. He is medically cleared otherwise aside for his intoxication. Patient will be dispositioned to the detoxification rehabilitation room at the [facility]. I have extensively reviewed the treatment plan and discharge instructions with the patient. I have addressed all patient concerns at this time. The patient was made aware of what symptoms to monitor for that would warrant a return to the emergency department. Discussed the plan with the patient, they demonstrate verbal understanding and agreement with our assessment and plan at this time. The documentation in this chart was dictated using [employer] dictation software. Please excuse any dictation errors. FINDINGS: Lungs: Centrilobular emphysema. Pleural spaces: Unremarkable. No pneumothorax. No pleural effusion. Heart: No cardiomegaly. No pericardial effusion. Lymph nodes: Unremarkable. No enlarged lymph nodes. Vasculature: Unremarkable. No aortic aneurysm. Bones/joints: Fracture of the left 11th rib. No other fractures identified. Soft tissues: Unremarkable. IMPRESSION: Fracture of the left 11th rib, seen on the prior study. No other fractures identified. FINDINGS: Liver: Hepatic steatosis. Gallbladder and bile ducts: No calcified stones. No ductal dilation. Pancreas: Unremarkable. No ductal dilation. Spleen: Calcified splenic granulomas. Adrenal glands: Normal. No mass. Kidneys and ureters: Simple left renal cyst, 2.5 centimetres in diameter. Stomach and bowel: Unremarkable. No obstruction. No mucosal thickening. Appendix: No evidence of appendicitis. Intraperitoneal space: No free air. No significant fluid collection. Vasculature: Atherosclerotic calcifications within abdominal aorta of normal caliber. Lymph nodes: No enlarged lymph nodes. Urinary bladder: Urinary bladder is markedly distended, otherwise, unremarkable. Reproductive: Enlarged prostate measures 4.8 by 4.3 cm. Bones/joints: Degenerative changes within lumbar spine. Soft tissues: Unremarkable. IMPRESSION: No evidence for an acute intra-abdominal organ injury. Hepatic steatosis. Thank you for allowing us to participate in the care of your patient. Dictated and Authenticated by: Brent Lombardi MD FINDINGS: Brain: No evidence for acute transcortical infarct. No mass effect or midline shift. No extra-axial collection. No acute intracranial hemorrhage. Basal cisterns are patent. Cerebral ventricles: No ventriculomegaly. Paranasal sinuses: Visualized sinuses are unremarkable. No fluid levels. Mastoid air cells: Visualized mastoid air cells are well aerated. Bones/joints: Unremarkable. No acute fracture. Soft tissues: Unremarkable. IMPRESSION: No evidence for acute transcortical infarct, acute intracranial hemorrhage, or mass effect. FINDINGS: Bones/joints: No acute fracture or traumatic subluxation. No spondylolisthesis. The atlantooccipital and atlantoaxial articulations are intact. Occipital condyles are intact. Facet joint alignments are maintained. Age-related degenerative disc disease. Multilevel degenerative changes of the cervical spine. Prevertebral and retropharyngeal spaces: No prevertebral soft tissue swelling. Lungs: Lung apices are normal. Soft tissues: Unremarkable. IMPRESSION: No acute fracture or traumatic subluxation. Thank you for allowing us to participate in the care of your patient. Dictated and Authenticated by: Jeremias Garcia MD 08/26/2022 9:55 PM Eastern Time ([place] & [place]) HPI General Date/Time Provider Initiated Documentation: 08/26/22 20:03 . HPI Narrative: This is a 56-year-old male with past medical history of severe chronic alcoholism, anxiety, depression, who presents today for evaluation of intoxication. EMS reports that at around 4 PM the patient went up to his upstairs neighbors room, he was extremely intoxicated at that time, and then he and his neighbor continued to drink 4x Pounders. Later this evening at around 7 PM his intoxicated roommate called 911 because he had passed out and had fallen onto the ground. When EMS arrived he was notably confrontational, and initially refused to go to the ER. He was clearly intoxicated. He did try to stand up and passed out again. He does not add anything else to the history sec ondary to his intoxicated state. He is not on blood thinners. EMS states that his oxygen was around 88% but improved to the mid 90s on 2 L of supplemental oxygen. No other complaints at this time. Related Data Home Medications Medication Instructions Recorded Confirmed albuterol sulfate 90 mcg/actuation 1 - 2 puff inhalation .COMPLEX PRN 08/23/18 08/26/22 aerosol inhaler (ProAir HFA) budesonide-formoterol HFA 160 1 puff inhalation BID 08/23/18 08/26/22 mcg-4.5 mcg/actuation aerosol inhaler (Symbicort) gabapentin 800 mg tablet 800 mg PO TID 11/12/21 08/26/22 mirtazapine 15 mg tablet 15 mg PO HS 11/12/21 08/26/22 amitriptyline 50 mg tablet 50 tab PO HS 03/13/22 08/26/22 Allergies Allergy/AdvReac Type Severity Reaction Status Date / Time meloxicam AdvReac Intermediate Nausea Unverified 08/26/22 20:04 General Stated Complaint: ETOHWithdr EMORY: 2 Review of Systems All systems reviewed & are unremarkable except as noted in HPI and below PFSH All Active Problems (Updated 08/26/22 @ 23:00 by Godwin Griffin DO) ETOHism (Acute) Trauma (Acute) Acute alcohol intoxication (Acute) Rotatory subluxation of atlantoaxial joint (Acute) Fracture of nasal bone (Acute) Lumbar radiculopathy, right (Chronic) Left lumbar radiculitis (Chronic) Spondylosis of lumbar region without myelopathy or radiculopathy (Chronic) Medical History Aggression Alcohol abuse, in remission Anxiety Anxiety Back pain Bilateral ankle fractures Chronic cough Chronic knee pain Chronic left shoulder pain Chronic pain COPD (chronic obstructive pulmonary disease) Depression Edentulous Elevated blood pressure reading Elevated LFTs Fatigue GERD (gastroesophageal reflux disease) Headache Herniated disc Homeless Hx of fracture of nose Hydrocele, left Insomnia Left foot pain Left leg pain Left shoulder pain Onychomycosis Peripheral neuropathy Spondylosis of lumbar spine Tobacco use disorder Ulna fracture Surgical History Colonoscopy - [facility] (05/30/17) repair fractured ankels repair hyrocele repair of thumb Social History Smoking/Tobacco Use Status: Current every day Tobacco Type: cigarettes Smoking risk assessment performed?: Yes Alcohol Intake: current Alcohol Intake frequency: 3 or more drinks per day Alcohol type: beer Drug use: Daily Substance use type: marijuana Do you feel safe at home: Yes Do you feel safe in your relationship?: Yes Exam Narrative Exam Narrative: 1.Const: Well-nourished, Well-developed, appearing stated age 2.Eyes: PERRL, no conjunctival injection, and symmetrical lids. 3.ENT: Atraumatic external nose and ears. Moist MM. Neck: Symmetric, trachea midline, No thyromegaly. There is no evidence of raccoon eyes, hernandez sign, CSF rhinorrhea, mastoid tenderness, cranial crepitus, hemotympanum, exophthalmos, or hyphema. Patient demonstrates intact dentition with no signs of tooth avulsion or fracture, no signs of jaw deformity, no evidence of a LeFort's fracture, with an intact palate, nose and orbital region. There is no evidence of a nasal septal hematoma. No proptosis. Jaw closes symmetrically. Airway is clear. 4.CVS: +S1/S2, No murmurs or gallops. Peripheral pulses 2+ and equal in all extremities. Brisk capillary refill in all extremities. 5.RESP: Unlabored respiratory effort. Clear to auscultation bilaterally. No wheezes rales or rhonchi 6.GI: Soft, Nontender/Nondistended, No hepatosplenomegaly. No guarding or rebound. 7.MSK: Normocephalic/Atraumatic, Extremities w/o deformity or ttp No cyanosis or clubbing, Normal movement of all extremities 8.Skin: Warm, Dry. No rashes or lesions. 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 Sensation grossly intact, no focal neurologic deficits. 10.Psych: (AAO) x1. Grossly intoxicated Course Vital Signs Vital signs: Vital Signs Temperature 36.7 C 08/26/22 19:52 Pulse 88 08/26/22 19:52 Respiratory Rate 16 08/26/22 19:52 Blood Pressure 151/90 H 08/26/22 19:52 Pulse Oximetry 96 08/26/22 19:52 Temperature 36.7 C 08/26/22 19:52 Temperature Source Temporal Artery Scan 08/26/22 19:52 Pulse 88 08/26/22 19:52 Respiratory Rate 16 08/26/22 19:52 Respiratory Effort Normal 08/26/22 19:52 Blood Pressure 151/90 H 08/26/22 19:52 Blood Pressure Position Supine 08/26/22 19:52 Pulse Oximetry 96 08/26/22 19:52 Oxygen Delivery Method Nasal Cannula 08/26/22 19:52 Oxygen Flow Rate 2 08/26/22 19:52
[2022-08-26] MEDS: Normal Saline 1,000 ML 1000 ML IV (20:19)
[2022-08-26 20:27] LABS: Abs Immature Grans 0.18 10^3/uL (0.0-0.06); Absolute Basophil Count 0.17 10^3/uL (0.0-0.2); Absolute Eosinophil Count 0.26 10^3/uL (0.0-0.7); Absolute Neutrophil Count 4.85 10^3/uL (1.2-6.7); Basophils % 1.9; Eosinophils % 2.9; HCT 48.1 % (40.0-50.0); Lymphocytes % 24.8; MCH 33.6 pg (27.0-33.0); MCHC 33.3 % (32.0-36.0); MCV 101 fL (80-95); MPV 11.5 fL (8.0-11.0); Monocytes % 13.5; Neutrophils % 54.9; Platelet Count 229 10^3/uL (130-400); RBC 4.76 10^6/uL (4.36-5.78); RDW 14.7 % (11.8-14.1); RDW-SD 55.9 fL; WBC 8.86 10^3/uL (4.4-10.8)
[2022-08-26 20:41] LABS: PTT Activated 30.6 sec (21.5-31.9); Prothrombin Time 9.7 sec (9.3-11.0)
[2022-08-26] MEDS: Omnipaque 350 MG/ML 100 ML BTL IJ (20:48)
[2022-08-26] MEDS: Normal Saline - Diluent 50 ML VIAL IJ (20:48)
[2022-08-26] MEDS: Normal Saline Flush 10 ML SYR IVP (20:49)
[2022-08-26 20:57] LABS: ALT 94 U/L (16-63); AST 147 U/L (15-37); Albumin 3.5 g/dL (3.4-5.0); Alkaline Phosphatase 125 U/L (46-116); Anion Gap 11.8 mmol/L (3-11); BUN 4 mg/dL (7-18); Bilirubin, Total 0.5 mg/dL (0.2-1.0); CO2 26.2 mmol/L (21.0-32.0); CREATININE 0.6 mg/dL (0.70-1.30); Calcium 8.6 mg/dL (8.5-10.1); Chloride 97 mmol/L (98-107); Estimated GFR 111.89 (mL/min/1.73m2); Glucose 90 mg/dL (74-106); Lipase 79 U/L (16-77); Potassium 4.4 mmol/L (3.5-5.1); Sodium 135 mmol/L (136-145); TSH (W/Ref FT4) 0.86 uIU/mL (0.36-3.74); Total Protein 8.3 g/dL (6.4-8.2); Troponin I < 50 ng/L (<or=60)
[2022-08-26 21:00] LABS: ETHANOL BLOOD 347.7 mg/dL (<10)
[2022-08-26 21:20] LABS: Bilirubin Negative (Negative); Blood Negative (Negative); Clarity Clear (Clear); Glucose Negative (Negative); Ketones Negative (Negative); Leukocyte Esterase Negative (Negative); Nitrite Negative (Negative); Specific Gravity <= 1.005 (1.005-1.025); Urobilinogen 0.2 mg/dL (Up to 0.2)
[2022-08-26 21:34] LABS: *AMPHETAMINES SCREEN URINE Negative (Negative); *BARBITURATES SCREEN URINE Negative (Negative); *BENZODIAZEPINES SCREEN URINE Negative (Negative); Cannabinoids THC Positive (Negative); Cocaine Screen,Urine Negative (Negative); METHADONE URINE SCREEN Negative (Negative); OPIATES URINE SCREEN Negative (Negative)
[2022-08-26 21:35] LABS: Tricyclic Antidepressants Negative (Negative)
--- NOTE | 2022-08-26 21:55 | DI.VRAD_ITS ---
PROCEDURE INFORMATION: Exam: CT Head Without Contrast Exam date and time: 08/26/2022 8:32 PM Age: 56 years old Clinical indication: Injury or trauma; Concussion/head injury; Consciousness not specified; Injury details: Severe intoxication, fall, syncope, altered TECHNIQUE: Imaging protocol: Computed tomography of the head without contrast. Radiation optimization: All CT scans at this facility use at least one of these dose optimization techniques: automated exposure control; mA and/or kV adjustment per patient size (includes targeted exams where dose is matched to clinical indication); or iterative reconstruction. COMPARISON: CT HEAD WO 11/12/2021 6:35 PM FINDINGS: Brain: No evidence for acute transcortical infarct. No mass effect or midline shift. No extra-axial collection. No acute intracranial hemorrhage. Basal cisterns are patent. Cerebral ventricles: No ventriculomegaly. Paranasal sinuses: Visualized sinuses are unremarkable. No fluid levels. Mastoid air cells: Visualized mastoid air cells are well aerated. Bones/joints: Unremarkable. No acute fracture. Soft tissues: Unremarkable. IMPRESSION: No evidence for acute transcortical infarct, acute intracranial hemorrhage, or mass effect. PROCEDURE INFORMATION: Exam: CT Cervical Spine Without Contrast Exam date and time: 08/26/2022 8:32 PM Age: 56 years old Clinical indication: Injury or trauma; Concussion/head injury; Consciousness not specified; Injury details: Severe intoxication, fall, syncope, altered TECHNIQUE: Imaging protocol: Computed tomography of the cervical spine without contrast. Radiation optimization: All CT scans at this facility use at least one of these dose optimization techniques: automated exposure control; mA and/or kV adjustment per patient size (includes targeted exams where dose is matched to clinical indication); or iterative reconstruction. COMPARISON: CT CERVICAL SPINE WO 11/12/2021 6:38 PM FINDINGS: Bones/joints: No acute fracture or traumatic subluxation. No spondylolisthesis. The atlantooccipital and atlantoaxial articulations are intact. Occipital condyles are intact. Facet joint alignments are maintained. Age-related degenerative disc disease. Multilevel degenerative changes of the cervical spine. Prevertebral and retropharyngeal spaces: No prevertebral soft tissue swelling. Lungs: Lung apices are normal. Soft tissues: Unremarkable. IMPRESSION: No acute fracture or traumatic subluxation. Dictated and Authenticated by: Jeremias Garcia MD. Ordering:LEWIS Connelly MD
--- NOTE | 2022-08-26 22:04 | DI.VRAD_ITS ---
PROCEDURE INFORMATION: Exam: CT Chest With Contrast; Diagnostic Exam date and time: 08/26/2022 8:36 PM Age: 56 years old Clinical indication: Injury or trauma; Generalized; Blunt trauma (contusions or hematomas); Injury details: Severe intoxication, fall, syncope, altered TECHNIQUE: Imaging protocol: Diagnostic computed tomography of the chest with contrast. 3D rendering (Not supervised by radiologist): MIP and/or 3D reconstructed images were created by the technologist. Radiation optimization: All CT scans at this facility use at least one of these dose optimization techniques: automated exposure control; mA and/or kV adjustment per patient size (includes targeted exams where dose is matched to clinical indication); or iterative reconstruction. Contrast material: OMNI 350; Contrast volume: 100 ml; Contrast route: INTRAVENOUS (IV); COMPARISON: CT CHEST/ABD/PEL W 03/13/2022 3:47 PM FINDINGS: Lungs: Centrilobular emphysema. Pleural spaces: Unremarkable. No pneumothorax. No pleural effusion. Heart: No cardiomegaly. No pericardial effusion. Lymph nodes: Unremarkable. No enlarged lymph nodes. Vasculature: Unremarkable. No aortic aneurysm. Bones/joints: Fracture of the left 11th rib. No other fractures identified. Soft tissues: Unremarkable. IMPRESSION: Fracture of the left 11th rib, seen on the prior study. No other fractures identified. PROCEDURE INFORMATION: Exam: CT Abdomen And Pelvis With Contrast Exam date and time: 08/26/2022 8:36 PM Age: 56 years old Clinical indication: Injury or trauma; Generalized; Blunt trauma (contusions or hematomas); Injury details: Severe intoxication, fall, syncope, altered TECHNIQUE: Imaging protocol: Computed tomography of the abdomen and pelvis with contrast. 3D rendering (Not supervised by radiologist): MIP and/or 3D reconstructed images were created by the technologist. Radiation optimization: All CT scans at this facility use at least one of these dose optimization techniques: automated exposure control; mA and/or kV adjustment per patient size (includes targeted exams where dose is matched to clinical indication); or iterative reconstruction. Contrast material: OMNI 350; Contrast volume: 100 ml; Contrast route: INTRAVENOUS (IV); COMPARISON: CT CHEST/ABD/PEL W 03/13/2022 3:47 PM FINDINGS: Liver: Hepatic steatosis. Gallbladder and bile ducts: No calcified stones. No ductal dilation. Pancreas: Unremarkable. No ductal dilation. Spleen: Calcified splenic granulomas. Adrenal glands: Normal. No mass. Kidneys and ureters: Simple left renal cyst, 2.5 centimetres in diameter. Stomach and bowel: Unremarkable. No obstruction. No mucosal thickening. Appendix: No evidence of appendicitis. Intraperitoneal space: No free air. No significant fluid collection. Vasculature: Atherosclerotic calcifications within abdominal aorta of normal caliber. Lymph nodes: No enlarged lymph nodes. Urinary bladder: Urinary bladder is markedly distended, otherwise, unremarkable. Reproductive: Enlarged prostate measures 4.8 by 4.3 cm. Bones/joints: Degenerative changes within lumbar spine. Soft tissues: Unremarkable. IMPRESSION: No evidence for an acute intra-abdominal organ injury. Hepatic steatosis. Dictated and Authenticated by: Brent Lombardi MD. Ordering:LEWIS Connelly MD
[2022-08-26 23:00] VITALS: BP 151/90; PULSE 88; RESP 16; TEMP 36.7; O2SAT 96
--- NOTE | 2022-08-26 23:16 | NUR.NOTE ---
Nursing Note: @ 2100 pt pulled IV out from [facility]. A 2255 pt pulled IV out himself from [facility]
== END 2022-08-26 23:02 | disposition home or self-care (01) ==
PROVIDERS: Emergency Provider Student in an Organized Health Care Education/Training Program; PCP Nurse Practitioner Family
DX: F32.A Depression, unspecified; J44.9 Chronic obstructive pulmonary disease, unspecified; R74.01 Elevation of levels of liver transaminase levels; Z79.51 Long term (current) use of inhaled steroids; Y90.8 Blood alcohol level of 240 mg/100 ml or more; F10.229 Alcohol dependence with intoxication, unspecified
CPT/HCPCS: 36415; 74177; 80053; 80307; 83690; 93005; 96360; 99285; 70450; 71260; 72125; 80320; 81003; 84443; 84484; 85025; 85610; 85730; 93010; J3490

== ENCOUNTER 2023-01-24 19:09 | Emergency (ER) | payer MEDICAID, SELFPAY ==
[2023-01-24] VITALS (60 sets, daily range): BP systolic 81–110; BP diastolic 52–69; PULSE 70–94; RESP 9–32; TEMP 36.6; O2SAT 95
--- NOTE | 2023-01-24 19:15 | DI.RAD_ITS ---
Exam(s) XR WRIST RT COMPLETE EXAM: XR WRIST RT COMPLETE CLINICAL HISTORY: pain/deformity, pt states old, intoxicated. TECHNIQUE: 2D digital imaging was performed. Three views. COMPARISON: No exams were available for comparison FINDINGS: BONES: No acute fracture is present. Chronic deformity distal ulna with nonunited ulnar styloid frac ture. No bony destructive lesion is seen. JOINTS: The carpal bones are normally aligned. Degenerative changes at the distal radial ulnar joint . Degenerative changes proximal carpal row. SOFT TISSUE: Swelling around wrist. IMPRESSION: Degenerative changes. Soft tissue swelling. No acute bony abnormality. DATA REPOSITORY: RADIATION DOSE DELIVERED:
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
[2023-01-24 19:53] LABS: HCT 46.9 % (40.0-50.0); HGB 16.3 g/dL (13.5-17.5); MCHC 34.8 % (32.0-36.0); MCV 98 fL (80-95); MPV 11.6 fL (8.0-11.0); Platelet Count 166 10^3/uL (130-400); RDW 15.5 % (11.8-14.1); RDW-SD 56.4 fL; WBC 8.93 10^3/uL (4.4-10.8)
--- NOTE | 2023-01-24 20:05 | DI.VRAD_ITS ---
PROCEDURE INFORMATION: Exam: XR Right Wrist Exam date and time: 01/24/2023 7:47 PM Age: 57 years old Clinical indication: Patient HX: Pain/deformity, PT states old injury TECHNIQUE: Imaging protocol: Radiologic exam of the right wrist. Views: 3 or more views. COMPARISON: No relevant prior studies available. FINDINGS: Bones/joints: There is chronic avulsion of the ulnar styloid with evidence of chronic non osseous union as well as healing hypertrophic changes. No acute appearing discrete or displaced fracture lucency. No joint dislocation. There are moderate degenerative changes of the right wrist with degenerative joint space narrowing and hypertrophic changes of the proximal carpal row as well as radiocarpal joint space narrowing. Soft tissues: Right wrist soft tissue edema. IMPRESSION: 1. No acute fracture or dislocation. 2. Chronic appearing ulnar styloid avulsion with evidence of chronic non osseous union. 3. Moderate degenerative changes of the right wrist. Dictated and Authenticated by: Branden Martinez MD. Ordering:RADHA Mclaughlin MD
[2023-01-24 20:10] LABS: ALT 60 U/L (16-63); AST 123 U/L (15-37); Albumin 3.1 g/dL (3.4-5.0); Alkaline Phosphatase 148 U/L (46-116); Anion Gap 11.8 mmol/L (3-11); BUN 2 mg/dL (7-18); Bilirubin, Total 0.7 mg/dL (0.2-1.0); CO2 27.2 mmol/L (21.0-32.0); CREATININE 0.6 mg/dL (0.70-1.30); Calcium 8.5 mg/dL (8.5-10.1); Chloride 91 mmol/L (98-107); Glucose 88 mg/dL (74-106); Potassium 3.5 mmol/L (3.5-5.1); Sodium 130 mmol/L (136-145); Total Protein 7.9 g/dL (6.4-8.2)
== END 2023-01-24 23:15 | disposition other institution (70) ==
PROVIDERS: Emergency Provider Student in an Organized Health Care Education/Training Program; PCP Nurse Practitioner Family
DX: F10.120 Alcohol abuse with intoxication, uncomplicated (principal); T22.111A Burn of first degree of right forearm, initial encounter; T21.12XA Burn of first degree of abdominal wall, initial encounter; T31.0 Burns involving less than 10% of body surface; E87.1 Hypo-osmolality and hyponatremia; S52.611K Displaced fracture of right ulna styloid process, subsequent encounter for closed fracture with nonunion; X58.XXXD Exposure to other specified factors, subsequent encounter; Z59.00 Homelessness unspecified; X03.3XXA Fall due to controlled fire, not in building or structure, initial encounter; Y93.89 Activity, other specified; Y92.89 Other specified places as the place of occurrence of the external cause; Y99.9 Unspecified external cause status; F17.210 Nicotine dependence, cigarettes, uncomplicated
CPT/HCPCS: 36415; 80053; 82962; 85027; 99283; 73110; 80320

== ENCOUNTER 2023-08-02 16:54 | Emergency (ER) | payer MEDICAID, SELFPAY ==
[2023-08-02] VITALS (124 sets, daily range): BP systolic 79–157; BP diastolic 27–135; PULSE 59–100; RESP 10–21; TEMP 36.5; O2SAT 82–100
--- NOTE | 2023-08-02 17:00 | DI.CT_ITS ---
Exam(s) CT PELVIC WO EXAM: CT PELVIC WO CLINICAL HISTORY: fall, unreliable. TECHNIQUE: Imaging Protocol: Axial computed tomography images with coronal and sagittal reformatted images were created and reviewed CONTRAST MATERIAL: Intravenous: none Oral: None COMPARISON: CT CT CHEST/ABD/PEL W from 08/26/2022 FINDING: PELVIS: OSSEOUS: No pelvic nor hip fractures evident.No sacral fractures. No osseous lesions. ANTERIOR ABDOMINAL WALL/GI:No evidence of significant anterior abdominal wall nor inguinal hernia in the pelvis evident.No obvious bowel obstruction. No evidence of appendicitis.No evidence of acute si gmoid diverticulitis.No free fluid in the pelvis. LYMPH NODES: There is no intrapelvic nor inguinal adenopathy. URINARY BLADDER: Distended. REPRODUCTIVE: Prostate size normal.. IMPRESSION: 1. No pelvic nor hip fractures. 2. Distended urinary bladder. RADIATION DOSE DELIVERED: 3,804.36mGy.cm Total DLP DATA REPOSITORY: All CT scans at this facility are submitted to the National Radiology Data Registry (NRDR) Dose Index Registry (DIR) with the [employer] ([employer]). RADIATION OPTIMIZATION: All CT scans at this facility use at least one of these dose optimization te chniques: automated exposure control; mA and/or kV adjustment per patient size (includes targeted exa ms where dose is matched to clinical indication); or iterative reconstruction.
--- NOTE | 2023-08-02 17:04 | DI.CT_ITS ---
Exam(s) CT THORACIC LUMBAR SPINE WO EXAM: CT THORACIC LUMBAR SPINE WO CLINICAL HISTORY: fall, unreliable. TECHNIQUE: Imaging Protocol: Axial computed tomography images with coronal and sagittal reformatted images were created and reviewed. CONTRAST MATERIAL: Intravenous: Omnipaque 350 Contrast volume:structured data in ml Contrast route:I V - Oral: yes / no COMPARISON: CT CT HEAD CERVICAL SPINE WO from 08/02/2023 FINDINGS: THORACIC SPINAL COLUMN: No evidence of fractures nor listhesis. No facet malalignment. No acute com promise of the spinal canal. LUMBOSACRAL SPINAL CANAL: No evidence of acute fracture nor listhesis. No pars defects. Disc space narrowing at L4-5 level and L3-4. Facet arthropathy but no facet malalignment. No transverse proces s fractures. Significantly distended urinary bladder. IMPRESSION: No acute fractures evident in the thoracic and lumbosacral spinal columns. Grossly distended urinary bladder evident. Called by myself to ER physician. RADIATION DOSE DELIVERED: 3,804.36mGy.cm Total DLP DATA REPOSITORY: All CT scans at this facility are submitted to the National Radiology Data Registry (NRDR) Dose Index Registry (DIR) with the [employer] ([employer]). RADIATION OPTIMIZATION: All CT scans at this facility use at least one of these dose optimization te chniques: automated exposure control; mA and/or kV adjustment per patient size (includes targeted exa ms where dose is matched to clinical indication); or iterative reconstruction.
--- NOTE | 2023-08-02 17:04 | DI.CT_ITS ---
Exam(s) CT HEAD CERVICAL SPINE WO EXAM: CT HEAD CERVICAL SPINE WO CLINICAL HISTORY: fall, unreliable. TECHNIQUE: Imaging Protocol: Axial computed tomography images with coronal and sagittal reformatted images were created and reviewed COMPARISON: CT CT HEAD CERVICAL SPINE WO from 08/26/[address] PELVIC WO from 08/02/2023 FINDINGS: BRAIN: Images blurred by motion artifact There are no skull fractures nor fluid in the visualized paranasal sinuses. There is no evidence of intracranial hemorrhage, mass effect, or shift of midline structures. There are no extra-axial fluid collections. The ventricles are not enlarged or shifted and there is no blo od within the ventricular system nor within the basal cisterns. CERVICAL SPINE: There is no evidence of fracture nor listhesis. No significant prevertebral soft tissue swelling. Some degenerative changes noted. There is no significant facet joint malalignment. No significant osseous lesions evident. IMPRESSION: Images blurred by motion artifact. No obvious acute intracranial findings on this noninfused CT scan of the brain. No evidence of cervical spine fracture, malalignment, nor acute compromise of the cervical spinal can al. RADIATION DOSE DELIVERED: 3,804.36mGy.cm Total DLP DATA REPOSITORY: All CT scans at this facility are submitted to the National Radiology Data Registry (NRDR) Dose Index Registry (DIR) with the [employer] (ACR). RADIATION OPTIMIZATION: All CT scans at this facility use at least one of these dose optimization te chniques: automated exposure control; mA and/or kV adjustment per patient size (includes targeted exa ms where dose is matched to clinical indication); or iterative reconstruction.
--- NOTE | 2023-08-02 17:07 | ED.GENADUL_ITS ---
HPI General Date/Time Provider Initiated Documentation: 08/02/23 17:04 . HPI Narrative: 57 year-old male presents to ED today by EMS with a chief complaint of fall, intoxicated, reports back and hip pain with onset today. Quality described as generalized back and hip pain, moving all extremities, appears very intoxicated and is a poor historian- states he drank 4-5 Sharon Ice's, no radiation to headstrike, LOC, vomiting, abdominal pain, chest pain, cough, fever. Severity is described as mild. Palliating factors include nothing specific attempted. Provoking factors include nothing specific. Events leading up to the incident/Associated Symptoms: Patient is well-known to ED. Patient not anticoagulated. Related Data Home Medications Medication Instructions Recorded Confirmed albuterol sulfate 90 mcg/actuation 1 - 2 puff inhalation .COMPLEX PRN 08/23/18 08/02/23 aerosol inhaler (ProAir HFA) budesonide-formoterol HFA 160 1 puff inhalation BID 08/23/18 08/02/23 mcg-4.5 mcg/actuation aerosol inhaler (Symbicort) gabapentin 800 mg tablet 800 mg PO TID 11/12/21 08/02/23 mirtazapine 15 mg tablet 15 mg PO HS 11/12/21 08/02/23 amitriptyline 50 mg tablet 50 tab PO HS 03/13/22 08/02/23 Allergies Allergy/AdvReac Type Severity Reaction Status Date / Time meloxicam AdvReac Intermediate Nausea Unverified 08/02/23 17:01 General Stated Complaint: ETOHWithdr EMORY: 3 Review of Systems All systems reviewed & are unremarkable except as noted in HPI and below Exam Narrative Exam Narrative: GENERAL APPEARANCE: Well-nourished, non-toxic, awake and alert, atraumatic, no acute distress. SKIN: Warm, pink, dry, intact, without rashes/lesions/ulcerations. HEAD: Normocephalic, atraumatic- no scalp hematoma, no Kennedy's sign, no periorbital ecchymosis, normal hair distribution for gender/age. EYES: Pupils PERRLA, EOMs intact without nystagmus, normal conjunctiva, no exudates on lids/lashes. ENT: Nares patent, no circumoral cyanosis, no facial swelling NECK: Supple, trachea midline, painless cervical ROM, no neck tenderness. LUNGS/CHEST: Lungs CTA bilaterally- no rhonchi/rales/wheezes diffusely, non- labored respirations, normal A/P diameter, symmetrical expansion, no chest wall deformity HEART (CV/PV): Regular rate and rhythm without murmur, no peripheral edema, no JVD. ABDOMEN: Soft, non-distended, no guarding, no tenderness or rigidity. MSK: Normal ROM, no swelling/deformity to bilateral UEs or LEs, moving all extremities without weakness, no cyanosis, spine midline without tenderness, normal curvature, no crepitus/step-offs or midline tenderness to entire spine, pelvis stable, no apparently long bone deformity or swelling. NEURO: Mental Status AAOx4 - alert to person, place, time, events No facial droop, no forehead involvement. Motor: No focal weakness - strength 5/5 in bilateral UEs and LEs, proximal and distal, symmetric. Sensory: sensation intact to light touch globally. Gait NT- intoxicated. PSYCH: euthymic, cooperative, pleasant, appropriate speech but somewhat slurred likely in the setting of acute ETOH intoxication. Course Vital Signs Vital signs: Vital Signs Temperature 36.5 C 08/02/23 17:03 Pulse 71 08/02/23 17:03 Respiratory Rate 21 08/02/23 17:03 Blood Pressure 145/81 H 08/02/23 17:03 Pulse Oximetry 94 08/02/23 17:03 Temperature 36.5 C 08/02/23 17:03 Temperature Source Temporal Artery Scan 08/02/23 17:03 Pulse 71 08/02/23 17:03 Respiratory Rate 21 08/02/23 17:03 Blood Pressure 145/81 H 08/02/23 17:03 Blood Pressure Position Sitting 08/02/23 17:03 Pulse Oximetry 94 08/02/23 17:03 Oxygen Delivery Method Room Air 08/02/23 17:03 Oxygen Flow Rate 0 08/02/23 17:03 Medical Decision Making This dictation utilizes [id number] dictation software and may contain unedited grammatical errors. 57 y/o M presents to ED today with a chief complaint of fall while intoxicated, frequent presentation, reporting back and hip pain. Denies abdominal pain, chest pain, headstrike, has no overt signs of major trauma on general appearance. Patients' medical history: ETOH abuse, COPD, herniated disc, GERD, tobacco use disorder, aggression, frequent trauma due to falls in the setting of alcohol intoxication. Family and social history: severe ETOH use disorder, otherwise poor historian. Pertinent exam findings / vital signs include no signs of head trauma, abdominal trauma, painless cervical ROM, pelvis stable, no step-offs or crepitus to back, moving all extremities. Differential / pathologies of concern include trauma, ETOH intoxication, electrolyte abnormality. Diagnostic studies of: -CBC, CMP, lipase, liver panel, magnesium, alcohol level, ammonia, CT head without, CT C-T-L-spine without, CT pelvis without. -CTs show no evidence of new trauma whatsoever -distended bladder likely due to his ETOH intake -CBC benign -CMP shows hyponatremia- Na+ of 127, low Cl- of 90, no ARTEMIO, mildly low Ca++ -LFTs show elevated AST>ALT, likely acute alcoholic hepatitis, do not suspect hepatic failure -Lipase wnl -Ammonia wnl -ETOH level on arrival was 361 Interventions of: -IV Banana Bag. -Added 150mL/hr NS IVF after Banana Bag finished for his hyponatremia ED Course/Assessment/Plan: 57-year-old male well-known to the ED presents for fall with unknown trauma, acute alcohol intoxication. He states he has back pain and hip pain but there is no injury seen on CT, his labs are fairly benign he has a mild hyponatremia of 127, low chloride of 90, no ARTEMIO mildly low calcium, he was given electrolyte and fluid resuscitation with banana bag IV, his lipase is within normal limits I do not suspect pancreatitis, he has mildly elevated AST greater than ALT but I do not suspect fulminant liver failure at his level on labs and without jaundice on exam. He was sleeping throughout visit without complications and displayed no signs of alcohol withdrawal. Attempting to replete his sodium with slow IVF but he keeps ripping out his IV while sleeping intoxicated. Findings not consistent with trauma or active ETOH withdrawal. Disposition of Acute Alcohol Intoxication, Fall, Hyponatremia. Patient verbalized understanding of the plan and return to ED criteria and engaged in shared decision making. Medical Records Medical records reviewed: Yes I reviewed the patient's medical records. Imaging Data Radiologic Study: Imaging: CT Scan Radiologist's impression: Exam(s) CT HEAD CERVICAL SPINE WO EXAM: CT HEAD CERVICAL SPINE WO CLINICAL HISTORY: fall, unreliable. TECHNIQUE: Imaging Protocol: Axial computed tomography images with coronal and sagittal reformatted images were created and reviewed COMPARISON: CT CT HEAD CERVICAL SPINE WO from 08/26/[address] PELVIC WO from 08/02/2023 FINDINGS: BRAIN: Images blurred by motion artifact There are no skull fractures nor fluid in the visualized paranasal sinuses. There is no evidence of intracranial hemorrhage, mass effect, or shift of midline structures. There are no extra-axial fluid collections. The ventricles are not enlarged or shifted and there is no blood within the ventricular system nor within the basal cisterns. CERVICAL SPINE: There is no evidence of fracture nor listhesis. No significant prevertebral soft tissue swelling. Some degenerative changes noted. There is no significant facet joint malalignment. No significant osseous lesions evident. IMPRESSION: Images blurred by motion artifact. No obvious acute intracranial findings on this noninfused CT scan of the brain. No evidence of cervical spine fracture, malalignment, nor acute compromise of the cervical spinal canal. Radiologic Study #2: Attestation: I personally reviewed and interpreted this imaging study as follows: Imaging: CT Scan Radiologist's impression: Exam(s) CT THORACIC LUMBAR SPINE WO EXAM: CT THORACIC LUMBAR SPINE WO CLINICAL HISTORY: fall, unreliable. TECHNIQUE: Imaging Protocol: Axial computed tomography images with coronal and sagittal reformatted images were created and reviewed. CONTRAST MATERIAL: Intravenous: Omnipaque 350 Contrast volume:structured data in ml Contrast route:IV - Oral: yes / no COMPARISON: CT CT HEAD CERVICAL SPINE WO from 08/02/2023 FINDINGS: THORACIC SPINAL COLUMN: No evidence of fractures nor listhesis. No facet malalignment. No acute compromise of the spinal canal. LUMBOSACRAL SPINAL CANAL: No evidence of acute fracture nor listhesis. No pars defects. Disc space narrowing at L4-5 level and L3-4. Facet arthropathy but no facet malalignment. No transverse process fractures. Significantly distended urinary bladder. IMPRESSION: No acute fractures evident in the thoracic and lumbosacral spinal columns. Grossly distended urinary bladder evident. Called by myself to ER physician. Radiologic Study #3: Attestation: I personally reviewed and interpreted this imaging study as follows: Imaging: CT Scan Radiologist's impression: Exam(s) CT PELVIC WO EXAM: CT PELVIC WO CLINICAL HISTORY: fall, unreliable. TECHNIQUE: Imaging Protocol: Axial computed tomography images with coronal and sagittal reformatted images were created and reviewed CONTRAST MATERIAL: Intravenous: none Oral: None COMPARISON: CT CT CHEST/ABD/PEL W from 08/26/2022 FINDING: PELVIS: OSSEOUS: No pelvic nor hip fractures evident.No sacral fractures. No osseous lesions. ANTERIOR ABDOMINAL WALL/GI:No evidence of significant anterior abdominal wall nor inguinal hernia in the pelvis evident.No obvious bowel obstruction. No evidence of appendicitis.No evidence of acute sigmoid diverticulitis.No free fluid in the pelvis. LYMPH NODES: There is no intrapelvic nor inguinal adenopathy. URINARY BLADDER: Distended. REPRODUCTIVE: Prostate size normal.. IMPRESSION: 1. No pelvic nor hip fractures. 2. Distended urinary bladder. Lab Data Lab results reviewed: Yes I reviewed the patient's lab results. Labs: Laboratory Tests Range/Units 08/02/23 08/02/23 17:28 18:11 WBC (4.4-10.8) 10^3/uL 7.65 RBC (4.36-5.78) 10^6/uL 5.01 Hgb (13.5-17.5) g/dL 16.7 Hct (40.0-50.0) % 46.6 MCV (80-95) fL 93 MCH (27.0-33.0) pg 33.3 H MCHC (32.0-36.0) % 35.8 RDW (11.8-14.1) % 16.2 H Plt Count (130-400) 10^3/uL 179 MPV (8.0-11.0) fL 11.6 H Immature Gran % See Differential Neutrophils % 66.0 Band Neutrophils % 1 Lymphocytes % 16.0 Monocytes % 12.0 Eosinophils % 0.0 Basophils % 5.0 Nucleated RBC % (0.0-0.3) % 0.0 Absolute Neutrophils (1.2-6.7) 10^3/uL 5.13 Absolute Lymphocytes (1.2-3.4) 10^3/uL 1.22 Absolute Monocytes (0.1-0.8) 10^3/uL 0.92 H Absolute Eosinophils (0.0-0.7) 10^3/uL 0.00 Absolute Basophils (0.0-0.2) 10^3/uL 0.38 H RBC Morphology Normal Sodium Cancelled 127 L Potassium Cancelled 3.7 Chloride Cancelled 90 L Carbon Dioxide Cancelled 25.1 Anion Gap Cancelled 11.9 H BUN Cancelled 2 L Creatinine Cancelled 0.4 L Est GFR (CKD-EPI 2020) Cancelled 125.69 Glucose Cancelled 87 Calcium Cancelled 8.4 L Magnesium Cancelled 2.0 Total Bilirubin Cancelled 0.8 Conjugated Bilirubin Cancelled 0.5 H AST Cancelled 221 H ALT Cancelled 125 H Alkaline Phosphatase Cancelled 145 H Ammonia Cancelled 16 Total Protein Cancelled 8.1 Albumin Cancelled 3.5 Lipase Cancelled 55 Ethyl Alcohol Cancelled 361.3 H Quality:SDOH Health Related Social Needs: No Data to Display PFSH All Active Problems (Updated 08/02/23 @ 21:50 by HEIDY Ledezma) Hyponatremia (Acute) Fall (Acute) Acute alcohol intoxication (Acute) Trauma (Acute) Acute alcohol intoxication (Acute) Rotatory subluxation of atlantoaxial joint (Acute) Fracture of nasal bone (Acute) Lumbar radiculopathy, right (Chronic) Left lumbar radiculitis (Chronic) Spondylosis of lumbar region without myelopathy or radiculopathy (Chronic) Medical History Aggression Alcohol abuse, in remission Anxiety Anxiety Back pain Bilateral ankle fractures Chronic cough Chronic knee pain Chronic left shoulder pain Chronic pain COPD (chronic obstructive pulmonary disease) Depression Edentulous Elevated blood pressure reading Elevated LFTs Fatigue GERD (gastroesophageal reflux disease) Headache Herniated disc Homeless Hx of fracture of nose Hydrocele, left Insomnia Left foot pain Left leg pain Left shoulder pain Onychomycosis Peripheral neuropathy Spondylosis of lumbar spine Tobacco use disorder Ulna fracture Surgical History Colonoscopy - MAC (05/30/17) repair fractured ankels repair hyrocele repair of thumb Social History Smoking/Tobacco Use Status: Current every day Tobacco Type: cigarettes Smoking risk assessment performed?: Yes Alcohol Intake: current Alcohol Intake frequency: 3 or more drinks per day Alcohol type: beer Drug use: Daily Substance use type: marijuana Housing: apartment Do you feel safe at home: Yes Do you feel safe in your relationship?: Yes Sign Out Sign Out Data: Sign Out Comment: Patient had a fall while intoxicated, frequent presentations for this in the past. No trauma on CT scans. Labs show hyponatremia at 127, received 1L banana bag, keeps removing his IV with 150mL/hr NS while sleeping intoxicated. No acute events while in ED, has often been AMA in the past- ETOH was 361, no known withdrawal seizure history. Last updated by Godwin Sanford PA at 08/02/23 21:53 Discharge Plan Discharge Details Chief Complaint: ETOHWithdr Clinical Impression: Acute alcohol intoxication, Fall, Hyponatremia Primary Care Provider: PINEDA ELLIS ED Provider: Godwin Sanford Home Meds and New Rx's Prescriptions: No Action budesonide-formoterol [Symbicort] 160-4.5 mcg/actuation HFA aerosol inhaler 1 puff IH BID albuterol sulfate [ProAir HFA] 90 mcg/actuation HFA aerosol inhaler 1 - 2 puff IH .COMPLEX PRN Patient Comments: 1 - 2 puff IH Q4-Q6 PRN; Rx Instructions: 1 - 2 puff IH Q4-Q6 PRN; gabapentin 800 mg tablet 800 mg PO TID Patient Comments: TAKE 1 TABLET BY MOUTH THREE TIMES DAILY mirtazapine 15 mg tablet 15 mg PO HS Patient Comments: states does not take amitriptyline 50 mg tablet 50 tab PO HS Patient Comments: TAKE 1 TABLET BY MOUTH AT BEDTIME Discharge Instructions Instructions: Hyponatremia (ED), Alcohol Intoxication (ED), Fall Prevention (ED)
[2023-08-02 17:36] LABS: HCT 46.6 % (40.0-50.0); HGB 16.7 g/dL (13.5-17.5); MCH 33.3 pg (27.0-33.0); MCHC 35.8 % (32.0-36.0); MCV 93 fL (80-95); MPV 11.6 fL (8.0-11.0); RBC 5.01 10^6/uL (4.36-5.78); RDW 16.2 % (11.8-14.1); RDW-SD 56.3 fL; WBC 7.65 10^3/uL (4.4-10.8)
[2023-08-02 18:05] LABS: Absolute Neutrophil Count 5.13 10^3/uL (1.2-6.7); Bands % 1
[2023-08-02 18:06] LABS: Absolute Basophil Count 0.38 10^3/uL (0.0-0.2); Absolute Lymphocyte Count 1.22 10^3/uL (1.2-3.4); Absolute Monocyte Count 0.92 10^3/uL (0.1-0.8); Diff Comment Manual Differential; Platelet Count 179 10^3/uL (130-400); RBC Morphology Normal
[2023-08-02] MEDS: MAGNESIUM SULFATE 8.12 MEQ, MULTIVITAMIN 10 ML, THIAMINE 100 MG, FOLIC ACID 1 MG in Nor... 168.867 MG IV (18:23)
[2023-08-02 18:30] LABS: Ammonia 16 umol/L (11-32)
[2023-08-02 18:35] LABS: ALT 125 U/L (16-63); AST 221 U/L (15-37); Albumin 3.5 g/dL (3.4-5.0); Alkaline Phosphatase 145 U/L (46-116); Anion Gap 11.9 mmol/L (3-11); BUN 2 mg/dL (7-18); Bilirubin, Direct 0.5 mg/dL (0.0-0.2); Bilirubin, Total 0.8 mg/dL (0.2-1.0); CO2 25.1 mmol/L (21.0-32.0); CREATININE 0.4 mg/dL (0.70-1.30); Calcium 8.4 mg/dL (8.5-10.1); Chloride 90 mmol/L (98-107); Estimated GFR 125.69 (mL/min/1.73m2); Glucose 87 mg/dL (74-106); Lipase 55 U/L (16-77); Potassium 3.7 mmol/L (3.5-5.1); Sodium 127 mmol/L (136-145); Total Protein 8.1 g/dL (6.4-8.2)
[2023-08-02 18:36] LABS: ETHANOL BLOOD 361.3 mg/dL (<10)
[2023-08-03 01:53] VITALS: BP 131/55; PULSE 72; RESP 18; TEMP 36.6; O2SAT 96
[2023-08-03 03:34] VITALS: BP 116/49; PULSE 74; RESP 18; O2SAT 95
[2023-08-03 05:41] VITALS: BP 164/52; PULSE 83; RESP 16; O2SAT 92
--- NOTE | 2023-08-03 06:11 | W.EDPROG ---
Date of service: 08/03/23 Time of Service: 06:11 Medical Decision Making Patient was signed out to me by my colleague Godwin Sanford. Please refer to his HPI, physical exam, assessment and plan. Workup demonstrated no evidence of significant trauma per radiology read/assessment. Electrolytes demonstrate mild hyponatremia, patient received full banana bag, then additional normal saline but then kept purposefully ripping his IV out stating he did not want any more fluids. Minimal anion gap. Renal function normal. On reassessment this morning the patient states that he feels well and would like to go home. The patient is able to speak clearly. There is no demonstration of any slurring of speech. There is evidence of clear decision making capacity. Patient is able to ambulate well without any difficulty. There are no signs of ataxia or stumbling motions. Discussed red flags for which to return. I have extensively reviewed the treatment plan and discharge instructions with the patient. I have addressed all patient concerns at this time. The patient was made aware of what symptoms to monitor for that would warrant a return to the emergency department. Discussed the plan with the patient, they demonstrate verbal understanding and agreement with our assessment and plan at this time. The documentation in this chart was dictated using [email or web address] dictation software. Please excuse any dictation errors. Quality:SDOH Health Related Social Needs: No Data to Display Sign Out Sign Out Data: Sign Out Comment: Patient had a fall while intoxicated, frequent presentations for this in the past. No trauma on CT scans. Labs show hyponatremia at 127, received 1L banana bag, keeps removing his IV with 150mL/hr NS while sleeping intoxicated. No acute events while in ED, has often been AMA in the past- ETOH was 361, no known withdrawal seizure history. Last updated by Godwin Sanford PA at 08/02/23 21:53 Discharge Plan Disposition Patient Disposition: Home Discharge Details Chief Complaint: ETOHWithdr Clinical Impression: Acute alcohol intoxication, Fall, Hyponatremia Primary Care Provider: PINEDA ELLIS ED Provider: Godwin Griffin Home Meds and New Rx's Prescriptions: No Action budesonide-formoterol [Symbicort] 160-4.5 mcg/actuation HFA aerosol inhaler 1 puff IH BID albuterol sulfate [ProAir HFA] 90 mcg/actuation HFA aerosol inhaler 1 - 2 puff IH .COMPLEX PRN Patient Comments: 1 - 2 puff IH Q4-Q6 PRN; Rx Instructions: 1 - 2 puff IH Q4-Q6 PRN; gabapentin 800 mg tablet 800 mg PO TID Patient Comments: TAKE 1 TABLET BY MOUTH THREE TIMES DAILY mirtazapine 15 mg tablet 15 mg PO HS Patient Comments: states does not take amitriptyline 50 mg tablet 50 tab PO HS Patient Comments: TAKE 1 TABLET BY MOUTH AT BEDTIME Discharge Instructions Instructions: Hyponatremia (ED), Alcohol Intoxication (ED), Fall Prevention (ED) Additional Instructions: If you notice any worsening of your symptoms, or any new symptoms such as vomiting, diarrhea, fever, chills, shortness of breath, chest pain, numbness, weakness, or fainting , please return immediately to the emergency department for reevaluation. Please follow up with your primary care provider as soon as possible for reassessment and reevaluation. As always, it was a pleasure participating in your medical care today. Referrals: PINEDA ELLIS [facility] [Primary Care Provider] -
== END 2023-08-03 10:11 | disposition home or self-care (01) ==
PROVIDERS: Physician Assistant; Emergency Provider Student in an Organized Health Care Education/Training Program; PCP Nurse Practitioner Family
DX: F10.120 Alcohol abuse with intoxication, uncomplicated (principal); E87.1 Hypo-osmolality and hyponatremia; J44.9 Chronic obstructive pulmonary disease, unspecified; F17.210 Nicotine dependence, cigarettes, uncomplicated; Y90.8 Blood alcohol level of 240 mg/100 ml or more; Z91.81 History of falling; W19.XXXA Unspecified fall, initial encounter; Z59.00 Homelessness unspecified
CPT/HCPCS: 00123; 36415; 80053; 80076; 83690; 96365; 96366; 99285; 70450; 72125; 72128; 72131; 72192; 80320; 82140; 83735; 85025; 99284; J3411; J3475

== ENCOUNTER 2023-12-27 22:42 | Outpatient (REF) | payer MEDICAID, SELFPAY ==
[2023-12-27 22:32] LABS: HCT 44.7 % (40.0-50.0); HGB 15.4 g/dL (13.5-17.5); MCH 34.2 pg (27.0-33.0); MCHC 34.5 % (32.0-36.0); MCV 99 fL (80-95); MPV 12.5 fL (8.0-11.0); Platelet Count 187 10^3/uL (130-400); RDW 16.2 % (11.8-14.1); RDW-SD 59.7 fL; WBC 7.82 10^3/uL (4.4-10.8)
[2023-12-27 23:02] LABS: Iron 100 ug/dL (65-175); Total Iron Binding Capacity 334 ug/dL (250-450); Transferrin Sat 30 % (20-55)
[2023-12-27 23:16] LABS: ALT 82 U/L (16-63); AST 163 U/L (15-37); Albumin 3.8 g/dL (3.4-5.0); Alkaline Phosphatase 178 U/L (46-116); Anion Gap 10.5 mmol/L (3-11); BUN 1 mg/dL (7-18); Bilirubin, Total 1.05 mg/dL (0.2-1.0); CO2 28.5 mmol/L (21.0-32.0); CREATININE 0.5 mg/dL (0.70-1.30); Calcium 9.1 mg/dL (8.5-10.1); Chloride 94 mmol/L (98-107); Estimated GFR 116.77 (mL/min/1.73m2); Ferritin 575 ng/mL (26-388); Folate 15.2 ng/mL (8.6-20.0); Glucose 79 mg/dL (74-106); Magnesium 1.9 mg/dL (1.8-2.4); Potassium 4.1 mmol/L (3.5-5.1); Sodium 133 mmol/L (136-145); Total Protein 8.4 g/dL (6.4-8.2); Vitamin B12 716 pg/mL (193-986)
== END 2023-12-27 22:43 | disposition home or self-care (01) ==
LOC: NCHCN 22:42
PROVIDERS: PCP Nurse Practitioner Family; Visit Provider Nurse Practitioner Family
DX: R74.01 Elevation of levels of liver transaminase levels (principal); F10.10 Alcohol abuse, uncomplicated
CPT/HCPCS: 80053; 85027; 82607; 82728; 82746; 83540; 83550; 83735

== ENCOUNTER → 2024-01-31 01:01 | Outpatient (CLI) | payer MEDICAID, SELFPAY ==
--- NOTE | 2024-01-31 | DI.US_ITS ---
Exam(s) US ABDOMEN LIMITED EXAM: US ABDOMEN LIMITED CLINICAL HISTORY: Elevation of liver transaminase levels, R74.01 TECHNIQUE: Ultrasound abdomen performed using standard protocol. COMPARISON: CT CT CHEST/ABD/PEL W from 03/13/2022 FINDINGS: There is no ascites evident. LIVER: Mildly hyperechoic indicating steatosis. No discrete focal hepatic lesions evident. GALLBLADDER/BILIARY: There are no gallstones. No gallbladder wall edema nor pericholecystic fluid. The common hepatic duct isnot well seen due to overlying bowel gas. Not obviously dilated. PANCREAS: Not seen due to overlying bowel gas. RIGHT KIDNEY:No evidence of solid mass, calculus, nor hydronephrosis. No cortical cysts evident. IMPRESSION: 1. No evidence of cholelithiasis nor dilatation of the biliary tree. 2. Liver appears hyperechoic indicating steatosis, as was also seen on CT scan of February 2022. 3. Pancreas not able to be visualized due to overlying bowel gas. DATA REPOSITORY:
== END ==
PROVIDERS: PCP Nurse Practitioner Family; Visit Provider Nurse Practitioner Family
DX: R74.01 Elevation of levels of liver transaminase levels (principal)
CPT/HCPCS: 76705

== ENCOUNTER 2024-03-02 00:19 | Outpatient (CLI) | payer MEDICAID, SELFPAY ==
--- NOTE | 2024-03-02 | DI.CTLCSR_ITS ---
Exam(s) CT CHEST LUNG CANCER SCREEN EXAM: CT CHEST LUNG CANCER SCREEN CLINICAL HISTORY: Nicotine dependence, F17.210 TECHNIQUE: Imaging Protocol: Axial computed tomography images with coronal and sagittal reformatted images were created and reviewed COMPARISON: CT CT CHEST/ABD/PEL W from 03/13/[address] CHEST/ABD/PEL W from 08/26/2022 FINDINGS: Tracheobronchial tree: Patent where visualized. No bronchiectasis. Pulmonary parenchyma: No consolidation or dominant measurable mass. No architectural distortion. Lung Nodules: There is a 5 mm nodule in the posterior aspect of the left lower lobe (series 3, image 168). There is a 1 cm area of nodularity in the inferior aspect of the left lower lobe (series 3, im age 248). Mediastinum and Cheri: No dominant adenopathy or fluid collection. The esophagus is unremarkable. Thyroid gland: Unremarkable. Lymph nodes: Unremarkable. Pleura: No effusion or pneumothorax. Heart: The heart is not dilated. Coronary artery calcification is present. No pericardial effusion. Aorta: Thoracic aorta non-dilated.Atherosclerotic calcification is present. Upper abdomen: Calcified granuloma are seen in the spleen. There is fatty infiltration of the liver . There is a stable cyst in the superior pole of the left kidney. No follow-up is recommended. Soft Tissues: Unremarkable. Bones: Within normal limits. Old left rib fracture deformities. IMPRESSION: Left lung nodules. The largest measures 1 cm. Lung RADS Cat 4A - Suspicious: Findings for which additional diagnostic testing and/or tissue samplin g recommended Lung-RADS 1.0 CATEGORIES: Category 0 - Prior chest CT exam(s) being located for comparison. Category 1 - Annual screening in 12 months. No nodules or definitely benign nodules. Category 2 - Annual screening in 12 months. Benign appearance. Nodules with low likelihood of becomin g active cancer. Category 3 - 6-month follow-up. Probably benign. Short-term follow-up suggested. Nodules with low lik elihood of becoming active cancer. Category 4A - 3-month follow-up and CT/PET if >8 mm in size. Suspicious finding. Findings which requi re additional testing. Category 4B - Findings which require additional testing and tissue sampling. Suspicious finding. Category 4X - Category 3 or 4 nodules with additional features or imaging findings that increases the suspicion of malignancy. Modifier S- Potentially clinically significant finding. (Non lung cancer) RADIATION DOSE DELIVERED: 31.32mGy.cm Total DLP 31.32mGy.cmTotal DLP DATA REPOSITORY: All CT scans at this facility are submitted to the National Radiology Data Registry (NRDR) Dose Index Registry (DIR) with the [employer] (A[employer]). RADIATION OPTIMIZATION: All CT scans at this facility use at least one of these dose optimization te chniques: automated exposure control; mA and/or kV adjustment per patient size (includes targeted exa ms where dose is matched to clinical indication); or iterative reconstruction.
== END 2024-03-02 00:39 ==
LOC: DI 00:19
PROVIDERS: PCP Nurse Practitioner Family; Visit Provider Physician Assistant
DX: Z12.2 Encounter for screening for malignant neoplasm of respiratory organs (principal); F17.210 Nicotine dependence, cigarettes, uncomplicated; R91.8 Other nonspecific abnormal finding of lung field
CPT/HCPCS: 71271

== ENCOUNTER 2024-05-04 10:20 | Outpatient (REF) | payer MEDICAID, SELFPAY ==
[2024-05-04 14:56] LABS: HCT 52.8 % (40.0-50.0); MCH 33.7 pg (27.0-33.0); MCHC 33.7 % (32.0-36.0); MCV 100 fL (80-95); MPV 12.6 fL (8.0-11.0); Platelet Count 254 10^3/uL (130-400); RBC 5.28 10^6/uL (4.36-5.78); RDW 15.9 % (11.8-14.1); WBC 7.65 10^3/uL (4.4-10.8)
[2024-05-04 15:04] LABS: HGB 17.8 g/dL (13.5-17.5)
[2024-05-04 15:27] LABS: NT-proBNP 265 pg/mL (<300)
[2024-05-04 17:00] LABS: ALT 42 U/L (16-63); AST 71 U/L (15-37); Albumin 3.6 g/dL (3.4-5.0); Alkaline Phosphatase 145 U/L (46-116); Bilirubin, Direct 0.3 mg/dL (0.0-0.2); Bilirubin, Total 0.71 mg/dL (0.2-1.0); Calculated LDL 76 mg/dL (<100); Cholesterol 144 mg/dL (<200); HDL Cholesterol 62 mg/dL (40-60); Total Protein 8.2 g/dL (6.4-8.2); Triglyceride 30 mg/dL (<150)
== END 2024-05-04 10:21 | disposition home or self-care (01) ==
LOC: NCHCN 10:20
PROVIDERS: Family Medicine; PCP Nurse Practitioner Family; Visit Provider Nurse Practitioner Family
DX: R03.0 Elevated blood-pressure reading, without diagnosis of hypertension (principal); Z13.220 Encounter for screening for lipoid disorders; F10.10 Alcohol abuse, uncomplicated
CPT/HCPCS: 80061; 80076; 85027; 83880

== ENCOUNTER 2024-10-11 14:12 | Inpatient (IN) | payer MEDICAID, SELFPAY ==
[2024-10-11] VITALS (13 sets, daily range): BP systolic 93–108; BP diastolic 37–84; PULSE 90–101; RESP 2–22; TEMP 37.3–37.4; O2SAT 91–98
--- NOTE | 2024-10-11 14:15 | RT.EKG_ITS ---
APPROVED REPORT Exam: Resting ECG Reason for Exam: sob Patient Location: E HR:104 bpm ECG Measurements Heart Rate 104 AXIS AL 142 P 84 QRSd 89 QRS 54 QT 351 T 52 QTc 458 Conclusion Sinus tachycardia, rate 104 No interval abnormalities No STEMI PVCs No significant changes from priors
--- NOTE | 2024-10-11 14:40 | ED.GENADUL_ITS ---
Discharge Plan Disposition Patient Disposition: Admit to [facility] Condition: Fair Discharge Details Chief Complaint: RespSymp Clinical Impression: Sepsis, Left upper lobe pneumonia, Acute hyponatremia, Diarrhea Primary Care Provider: PINEDA ELLIS ED Provider: Marilee Montaño Home Meds and New Rx's Prescriptions: No Action budesonide-formoterol [Symbicort] 160-4.5 mcg/actuation HFA aerosol inhaler 1 puff IH BID albuterol sulfate [ProAir HFA] 90 mcg/actuation HFA aerosol inhaler 1 - 2 puff IH .COMPLEX PRN Patient Comments: 1 - 2 puff IH Q4-Q6 PRN; Rx Instructions: 1 - 2 puff IH Q4-Q6 PRN; gabapentin 800 mg tablet 400 mg PO TID Patient Comments: TAKE 1 TABLET BY MOUTH THREE TIMES DAILY telmisartan 40 mg tablet 40 mg PO DAILY Patient Comments: TAKE ONE TABLET BY MOUTH EVERY DAY DIRECTED FOR BLOOD PRESSURE tiotropium bromide [Spiriva with HandiHaler] 18 mcg capsule, w/inhalation device 1 cap inhalation DAILY Rx Instructions: puncture 1 cap using device; one dose = 2 inhalations escitalopram oxalate 5 mg tablet 5 mg PO DAILY Patient Comments: TAKE ONE TABLET BY MOUTH EVERY DAY HPI General Mode of arrival: EMS . Date/Time Provider Initiated Documentation: 10/11/24 14:25 . Limitations to Documentation: no limitations . Information obtained by: patient, EMS and old records reviewed . HPI Narrative: HPI: This is a 59-year-old male patient with a past medical history significant for COPD, alcohol use, who is presenting for evaluation of several weeks of wheezing, productive cough with brownish mucus, poor p.o. intake and fatigue with unintentional weight loss and diarrhea. The patient reports that he has just felt unwell, denies fever, nausea, and vomiting. States that he just does not feel like eating. He is not experiencing any chest pain, abdominal pain, has not been hospitalized or taken antibiotics recently. Brought in by EMS, noted to be mildly tachycardic and has a new oxygen requirement, currently on 3 L/min by nasal cannula. Exam: Gen: Awake and alert, appears unwell HEENT: Non-icteric sclera Neck: Supple Lungs: No apparent respiratory distress, normal respiratory effort. Diminished lung sounds bilaterally without obvious wheezing, rhonchi, rales CV: Appears well perfused, heart with tachycardic rate but regular rhythm, strong distal pulses Abdomen: Non-distended, soft, nontender without rigidity, rebound, or guarding MSK: Moves 4 extremities without apparent limitation in ROM, no peripheral edema noted, no unilateral calf swelling or tenderness Skin: Visualized skin without rashes, cyanosis. Neuro: Normal Gait, no obvious focal deficits or facial asymmetry. Speaks in full, clear sentences. Psych: Appropriate for situation. MDM: This is a 59-year-old male patient presenting for evaluation of shortness of breath with cough productive of brown sputum, and diarrhea. Differential includes but is not limited to COPD exacerbation, pneumonia, bronchitis, and consider pulmonary embolism given the potential for hemoptysis and his tachycardia and new oxygen requirement. Additionally considered ACS, arrhythmia, metabolic derangement, anemia. The patient has a benign abdominal examination which decreases my concern for intra-abdominal pathology such as diverticulitis, appendicitis, hepatitis, pancreatitis, bowel obstruction. Considered infectious diarrhea including viral, bacterial, and C. difficile specifically, though the patient has not had significant contact with healthcare environment. We will obtain laboratory studies to include CBC, CMP, magnesium, troponin, and D-dimer. I obtained an EKG which shows a sinus tachycardia without evidence of ischemia, interval abnormality, though the patient does have frequent unifocal PVCs. I will also obtain a chest x-ray and obtain a Fluvid swab. ED Course: I reviewed the patient's laboratory studies, which show a leukocytosis to 27 with no significant anemia or thrombocytopenia. Chemistry panel is notable for an acute on chronic hyponatremia to 125, with a mildly low potassium to 3.4. BUN elevated to 61 but creatinine is normal, slight elevation in bilirubin and AST as well as alk phos. lactate was low at 1.2, but the D- dimer is elevated to 1933. For this reason I did elect to obtain a CT pulmonary embolism study, which was negative for pulmonary embolism but does show a large left upper lobe consolidation concerning for pneumonia. Given the combination of pneumonia, hyponatremia, and diarrhea I did send off a Legionella test. I provided the patient with a liter of IV fluids for a blood pressure of 88/42, though the patient was mentating well during this and his tachycardia has improved. He remains on 3 L by nasal cannula. Received ceftriaxone and azithromycin for antibiosis. I reached out to the hospitalist who is graciously accepted this patient for admission to their service. Transferred from this department without incident. Marilee Montaño MD Related Data Home Medications ?Medication ?Instructions ?Recorded ?Confirmed albuterol sulfate 90 mcg/actuation 1 - 2 puff inhalation .COMPLEX PRN 08/23/18 10/11/24 aerosol inhaler (ProAir HFA) budesonide-formoterol HFA 160 1 puff inhalation BID 08/23/18 10/11/24 mcg-4.5 mcg/actuation aerosol inhaler (Symbicort) gabapentin 800 mg tablet 400 mg PO TID 11/12/21 10/11/24 escitalopram oxalate 5 mg tablet 5 mg PO DAILY 10/11/24 10/11/24 telmisartan 40 mg tablet 40 mg PO DAILY 10/11/24 10/11/24 tiotropium bromide 18 mcg capsule 1 cap inhalation DAILY 10/11/24 10/11/24 with inhalation device (Spiriva with HandiHaler) Allergies Allergy/AdvReac Type Severity Reaction Status Date / Time meloxicam AdvReac Intermediate Nausea Unverified 10/11/24 14:23 General Stated Complaint: RespSymp EMORY: 3 Course Vital Signs Vital signs: Vital Signs Pulse 101 H 10/11/24 14:18 Respiratory Rate 18 10/11/24 14:18 Blood Pressure 108/84 10/11/24 14:18 Pulse Oximetry 95 10/11/24 14:18 Pulse 101 H 10/11/24 14:18 Respiratory Rate 18 10/11/24 14:18 Blood Pressure 108/84 10/11/24 14:18 Pulse Oximetry 95 10/11/24 14:18 Oxygen Delivery Method Nasal Cannula 10/11/24 14:18 Oxygen Flow Rate 3 10/11/24 14:18 Medical Decision Making Quality:SDOH Health Related Social Needs: No Data to Display PFSH All Active Problems (Updated 10/11/24 @ 17:19 by Marilee Montaño MD) Diarrhea (Acute) Acute hyponatremia (Acute) Left upper lobe pneumonia (Acute) Sepsis (Acute) Trauma (Acute) Acute alcohol intoxication (Acute) Rotatory subluxation of atlantoaxial joint (Acute) Fracture of nasal bone (Acute) Lumbar radiculopathy, right (Chronic) Left lumbar radiculitis (Chronic) Spondylosis of lumbar region without myelopathy or radiculopathy (Chronic) Medical History Aggression Alcohol abuse, in remission Anxiety Anxiety Back pain Bilateral ankle fractures Chronic cough Chronic knee pain Chronic left shoulder pain Chronic pain COPD (chronic obstructive pulmonary disease) Depression Edentulous Elevated blood pressure reading Elevated LFTs Fatigue GERD (gastroesophageal reflux disease) Headache Herniated disc Homeless Hx of fracture of nose Hydrocele, left Insomnia Left foot pain Left leg pain Left shoulder pain Onychomycosis Peripheral neuropathy Spondylosis of lumbar spine Tobacco use disorder Ulna fracture Surgical History Colonoscopy - MAC (05/30/17) repair fractured ankels repair hyrocele repair of thumb Social History Smoking/Tobacco Use Status: Current every day Tobacco Type: cigarettes Smoking risk assessment performed?: Yes Alcohol Intake: current Alcohol Intake frequency: 3 or more drinks per day Alcohol type: beer Drug use: Daily Substance use type: marijuana Housing: apartment Do you feel safe at home: Yes Do you feel safe in your relationship?: Yes
[2024-10-11 14:49] LABS: HCT 35.9 % (40.0-50.0); HGB 12.8 g/dL (13.5-17.5); MCH 32.2 pg (27.0-33.0); MCHC 35.7 % (32.0-36.0); MCV 90 fL (80-95); MPV 12.2 fL (8.0-11.0); Platelet Count 261 10^3/uL (130-400); RBC 3.98 10^6/uL (4.36-5.78); RDW 15.9 % (11.8-14.1); RDW-SD 52.3 fL
[2024-10-11 15:10] LABS: Absolute Monocyte Count 1.66 10^3/uL (0.1-0.8); Absolute Neutrophil Count 24.57 10^3/uL (1.2-6.7); Bands % 4 %
[2024-10-11 15:11] LABS: Diff Comment Manual Differential; Metamyelocytes % 1; RBC Morphology Normal; WBC 27.61 10^3/uL (4.4-10.8)
[2024-10-11 15:14] LABS: D-Dimer 1933 ng/mlFEU (<500)
--- NOTE | 2024-10-11 15:15 | DI.CT_ITS ---
Exam(s) CT CHEST PE CTA EXAM: CT CHEST PE CTA CLINICAL HISTORY: cough, hemoptysis, elevated dimer. TECHNIQUE: Imaging Protocol: Axial CT angiography was performed with multi-slice acquisition and mu lti-planar reconstructions as well as axial, coronal and sagittal MIP reconstructions. Computer aided detection (CAD) was utilized. CONTRAST MATERIAL: Intravenous: Omnipaque 350 Contrast volume:100 ml COMPARISON: CT CT CHEST LUNG CANCER SCREEN from 03/02/2024 FINDINGS: Pulmonary Arteries: No evidence of filling defect to suggest pulmonary emboli. Mediastinum and Cheri: No dominant adenopathy or fluid collection. Pulmonary parenchyma: Extensive consolidation involving a large portion of the left upper lobe and winter perior segment of the left lower lobe. Milder infiltrates are noted in the in the lingula. Mild und erlying emphysematous changes. Pleura: No effusion or pneumothorax. Heart: The heart is not dilated. No coronary artery calcifications are seen. Aorta: Thoracic aorta non-dilated. No dissection. Upper abdomen: No acute findings. Bones: Unremarkable for age. Tubes, Catheters, and Lines: None Soft tissues: Unremarkable. IMPRESSION: No evidence of pulmonary embolism. Extensive consolidation of the majority of the left upper lobe and superior segment of the left lower lobe. RADIATION DOSE DELIVERED: Total DLP DATA REPOSITORY: All CT scans at this facility are submitted to the National Radiology Data Registry (NRDR) Dose Index Registry (DIR) with the [employer] ([employer]). RADIATION OPTIMIZATION: All CT scans at this facility use at least one of these dose optimization te chniques: automated exposure control; mA and/or kV adjustment per patient size (includes targeted exa ms where dose is matched to clinical indication); or iterative reconstruction.
[2024-10-11] MEDS: Omnipaque 350 MG/ML 100 ML BTL IJ (16:10)
[2024-10-11] MEDS: Normal Saline - Diluent 50 ML VIAL IJ (16:10)
[2024-10-11 16:18] LABS: ALT 54 U/L (16-63); AST 109 U/L (15-37); Albumin 1.4 g/dL (3.4-5.0); Alkaline Phosphatase 308 U/L (46-116); Anion Gap 9.1 mmol/L (3-11); BUN 61 mg/dL (7-18); Bilirubin, Total 2.1 mg/dL (0.2-1.0); CO2 25.9 mmol/L (21.0-32.0); CREATININE 0.8 mg/dL (0.70-1.30); Calcium 8.2 mg/dL (8.5-10.1); Chloride 90 mmol/L (98-107); Estimated GFR 100.69 (mL/min/1.73m2); Glucose 113 mg/dL (74-106); Magnesium 2.9 mg/dL (1.8-2.4); Potassium 3.4 mmol/L (3.5-5.1); Sodium 125 mmol/L (136-145); Total Protein 6.4 g/dL (6.4-8.2); Troponin I 62 ng/L (<or=76)
[2024-10-11] MEDS: cefTRIAXone 1 GM/50 ML BAG IVPB (16:50)
[2024-10-11] MEDS: Lactated Ringers 1,000 ML 1000 ML IV (16:50)
--- NOTE | 2024-10-11 17:01 | W.PM.HP.N ---
Date of service: 10/11/24 Time of Service: 17:01 Assessment and Plan Assessment and plan (1) Severe sepsis: Status: Acute Assessment and plan: Sepsis criteria met with tachycardia at 96 and tachypnea at 26 as well as WBC of 27?source is being respiratory as per point 3 . Severity criteria met with hypotension resolving with IV crystalloid infusion 1 L given in the ED, LR at 75 cc an hour overnight (2) Acute hypoxic respiratory failure: Status: Acute Assessment and plan: Patient w/o chronic O2 requirement at home and presenting with new oxygen requirement as per EMS to maintain sat 92 and above on 2 L/min of oxygen via nasal cannula Pulmonary emboli ruled out as per imaging and response to Oxygen, no pleural effusion, ACS/coronary occlusion negative as per EKG and negative troponin Large left upper lobe consolidation as per CT imaging confirming location of pneumonia Wean Oxygen for saturation 92% Continue doxycycline, ceftriaxone Blood cultures pending DuoNebs, Mucinex, benzonatate, as needed nebs Acapella (3) CAP (community acquired pneumonia): Status: Acute Assessment and plan: As above (4) COPD (chronic obstructive pulmonary disease): Assessment and plan: Continue home meds (5) Hyponatremia: Status: Inactive Assessment and plan: Appears chronic in nature, LR given in the ED will continue LR at 75 overnight BMP in the morning (6) Nicotine dependence: Status: Acute Assessment and plan: NRT (7) On deep vein thrombosis (DVT) prophylaxis: Status: Acute Assessment and plan: Low molecular weight heparin Discussed with Dr. Rangel History of Present Illness History of Present Illness Chief Complaint: Shortness of breath Narrative: This 59-year-old male patient with a past medical history significant for COPD, alcohol use, presented to the ED via EMS for evaluation of several weeks of wheezing, productive cough with brownish mucus, poor p.o. intake and fatigue with unintentional weight loss and diarrhea woth worsening respiratory distress today. The patient reports that he has just felt unwell, denies fever, nausea, and vomiting,or dysuria ; reported chills and diarrhea. On arrival was hypoxic with sat in the 80's on room air resolving on 3l/min via NC, tachycardic with HR 101, afebrile. Workup in the ED was positive for leukocytosis at 27, ANC at 24, D-dimer at 1933, Na at 125 mostly likely chronic, K 3.4, BUN 61 with baseline Cr. Imaging was positive for L upper lobe pneumonia, negative for PE as per CTA. The patient will be admitted to the medical surgical floor for evaluation and management of acute hypoxic respiratory failure, sepsis, pneumonia. The patient was treated with ceftriaxone and azythromycin in the ED and one liter of IV crystalloids. Full code status confirmed. Review of Systems All systems reviewed & are unremarkable except as noted in HPI and below PFSH All Active Problems (Updated 10/11/24 @ 18:32 by YEVGENIY BETANCUR) Severe sepsis (Acute) On deep vein thrombosis (DVT) prophylaxis (Acute) Nicotine dependence (Acute) Acute hypoxic respiratory failure (Acute) CAP (community acquired pneumonia) (Acute) Diarrhea (Acute) Acute hyponatremia (Acute) Left upper lobe pneumonia (Acute) Sepsis (Acute) Trauma (Acute) Acute alcohol intoxication (Acute) Rotatory subluxation of atlantoaxial joint (Acute) Fracture of nasal bone (Acute) Lumbar radiculopathy, right (Chronic) Left lumbar radiculitis (Chronic) Spondylosis of lumbar region without myelopathy or radiculopathy (Chronic) Medical History Aggression Alcohol abuse, in remission Anxiety Anxiety Back pain Bilateral ankle fractures Chronic cough Chronic knee pain Chronic left shoulder pain Chronic pain COPD (chronic obstructive pulmonary disease) Depression Edentulous Elevated blood pressure reading Elevated LFTs Fatigue GERD (gastroesophageal reflux disease) Headache Herniated disc Homeless Hx of fracture of nose Hydrocele, left Insomnia Left foot pain Left leg pain Left shoulder pain Onychomycosis Peripheral neuropathy Spondylosis of lumbar spine Tobacco use disorder Ulna fracture Surgical History Colonoscopy - MAC (05/30/17) repair fractured ankels repair hyrocele repair of thumb Social History Smoking/Tobacco Use Status: Current every day Tobacco Type: cigarettes Smoking risk assessment performed?: Yes Alcohol Intake: current Alcohol Intake frequency: 0-2 drinks per day Alcohol type: beer Drug use: Daily Substance use type: marijuana Housing: apartment Do you feel safe at home: Yes Do you feel safe in your relationship?: Yes Meds Allergies and Home Medications Allergies Allergy/AdvReac Type Severity Reaction Status Date / Time meloxicam AdvReac Intermediate Nausea Unverified 10/11/24 14:23 Home Medications ?Medication ?Instructions ?Recorded ?Confirmed ?Type albuterol sulfate 90 mcg/actuation 1 - 2 puff inhalation .COMPLEX PRN 08/23/18 10/11/24 History aerosol inhaler (ProAir HFA) budesonide-formoterol HFA 160 1 puff inhalation BID 08/23/18 10/11/24 History mcg-4.5 mcg/actuation aerosol inhaler (Symbicort) gabapentin 800 mg tablet 400 mg PO TID 11/12/21 10/11/24 History escitalopram oxalate 5 mg tablet 5 mg PO DAILY 10/11/24 10/11/24 History telmisartan 40 mg tablet 40 mg PO DAILY 10/11/24 10/11/24 History tiotropium bromide 18 mcg capsule 1 cap inhalation DAILY 10/11/24 10/11/24 History with inhalation device (Spiriva with HandiHaler) Exam Narrative Exam Narrative: Constitutional 59 yo male patient appearing older than stated age, speaks in short sentences. HENMT: Facial structures with normal appearance Eyes: Well aligned, intact ROM Neuro:alert and oriented X4 ,no neurological focal deficit Resp: labored breathing,coarse lungs bilaterally with decreased posterior BHAVANA Cardio: regular rhythm, S1, S2, no murmur, positive radial and pedal pulses GI: Abdomen is not distended, soft and non tender, bowel sounds are present Integumentary: No skin lesions or rash on exposed skin Extremities: strength 5/5 to bilateral lower and upper extremities Psych: RASS 0, congruent mood and normal affect. Results Labs 10/11/24 14:36 10/11/24 15:37 Labs: Laboratory Results - last 24 hr 10/11/24 10/11/24 10/11/24 14:36 14:55 15:37 WBC 27.61 H* RBC 3.98 L Hgb 12.8 L Hct 35.9 L MCV 90 MCH 32.2 MCHC 35.7 RDW 15.9 H Plt Count 261 MPV 12.2 H Immature Gran % 0.0 Neutrophils % 85.0 Band Neutrophils % 4 Lymphocytes % 4.0 Monocytes % 6.0 Eosinophils % 0.0 Basophils % 0.0 Metamyelocytes % 1 Nucleated RBC % 0.0 Absolute Neutrophils 24.57 H Absolute Lymphocytes 1.10 L Absolute Monocytes 1.66 H Absolute Eosinophils 0.00 Absolute Basophils 0.00 RBC Morphology Normal D-Dimer 1933 H Sodium Cancelled Cancelled 125 L Potassium Cancelled Cancelled 3.4 L Chloride Cancelled Cancelled 90 L Carbon Dioxide Cancelled Cancelled 25.9 Anion Gap Cancelled Cancelled 9.1 BUN Cancelled Cancelled 61 H Creatinine Cancelled Cancelled 0.8 Est GFR (CKD-EPI 2020) Cancelled Cancelled 100.69 Glucose Cancelled Cancelled 113 H Calcium Cancelled Cancelled 8.2 L Magnesium Cancelled Cancelled 2.9 H Total Bilirubin Cancelled Cancelled 2.1 H AST Cancelled Cancelled 109 H ALT Cancelled Cancelled 54 Alkaline Phosphatase Cancelled Cancelled 308 H Troponin I Cancelled Cancelled 62 Total Protein Cancelled Cancelled 6.4 Albumin Cancelled Cancelled 1.4 L Last Vital Signs Pulse 101 H 10/11/24 14:18 Resp 18 10/11/24 14:18 BP 108/84 10/11/24 14:18 Pulse Ox 95 10/11/24 14:18 Time Spent Time spent with Patient: >75 minutes Time was spent: preparing to see the patient(eg.review tests), obtaining and/or reviewing separately otained hiistory, ordering medications,tests, procedures, referring, communicating with other health patient care technician instructor, indepentently interpreting results, counseling the patient and care coordination
[2024-10-11 17:04] LABS: Lactate 1.2 mmol/L (<or=2.0)
[2024-10-11 17:24] LABS: Troponin I 62 ng/L (<or=76)
[2024-10-11] MEDS: AZITHROMYCIN 500 MG in Normal Saline 250 ML 250 MG IVPB (17:24)
[2024-10-11 17:49] LABS: COVID-19 PCR Negative (Negative); Influenza A PCR Negative (Negative); Influenza B PCR Negative (Negative); RSV PCR Negative (Negative); Source Nasopharynx
--- NOTE | 2024-10-11 18:20 | W.PC.ACHO ---
Registration Status: Primary Language: Preferred Language: ED Information & Data Chief Complaint RespSymp 10/11/24 18:06 Chief Complaint RespSymp 10/11/24 14:41 Triage Note few weeks of wheezing, 10/11/24 14:18 productive cough with brown, blackish yellow mucus, poor intake, fatigue per provider at office visit today 20lb weight loss in 2 months Medical / Surgical History (Last Reviewed 08/26/22 @ 20:13 by Godwin Griffin DO) Left shoulder pain Left leg pain Left foot pain Elevated LFTs Herniated disc Anxiety COPD (chronic obstructive pulmonary disease) Chronic pain Insomnia Spondylosis of lumbar spine Homeless GERD (gastroesophageal reflux disease) Alcohol abuse, in remission Hydrocele, left Chronic left shoulder pain Chronic knee pain Hx of fracture of nose Ulna fracture Tobacco use disorder Peripheral neuropathy Edentulous Headache Depression Chronic cough Back pain Anxiety Bilateral ankle fractures Aggression Fatigue Onychomycosis Elevated blood pressure reading (Last Reviewed 08/26/22 @ 20:13 by Godwin Griffin DO) repair of thumb repair hyrocele repair fractured ankels Colonoscopy - MAC (05/30/17) Most Recent Vital Signs Pulse 96 H 10/11/24 18:01 Pulse 96 H 10/11/24 18:01 Respiratory Rate 21 10/11/24 18:01 Respiratory Effort Normal, Non-Labored 10/11/24 18:06 Blood Pressure 94/44 L 10/11/24 18:01 Blood Pressure Mean 58 10/11/24 18:01 Pulse Oximetry 91 L 10/11/24 18:01 Oxygen Delivery Method Nasal Cannula 10/11/24 14:18 Oxygen Flow Rate 3 10/11/24 14:18 Allergies meloxicam Adverse Reaction (Intermediate, Unverified 10/11/24 14:23) Nausea Precautions Isolation Standard precaution 10/11/24 18:06 Active Medications Generic Name Dose Route Start Last Admin Trade Name Freq PRN Reason Stop Dose Admin Iohexol 100 ml 10/11/24 16:15 10/11/24 16:10 Omnipaque 350 Mg/Ml 100 Ml Btl IJ 11/10/24 23:59 100 ml DIRECTED SHAYY Administration Sodium Chloride 50 ml 10/11/24 16:15 10/11/24 16:10 Normal Saline - Diluent 50 Ml Vial IJ 50 ml .FOR DI USE SHAYY Administration IV IV Catheter Type [Left Saline Lock Antecubital] IV Catheter Gauge [Left 20 Antecubital] Diagnostics 10/11/24 10/11/24 10/11/24 Range/Units 17:33 17:05 17:00 WBC (4.4-10.8) 10^3/uL RBC (4.36-5.78) 10^6/uL Hgb (13.5-17.5) g/dL Hct (40.0-50.0) % MCV (80-95) fL MCH (27.0-33.0) pg MCHC (32.0-36.0) % RDW (11.8-14.1) % Plt Count (130-400) 10^3/uL MPV (8.0-11.0) fL Immature Gran % % Neutrophils % % Band Neutrophils % % Lymphocytes % % Monocytes % % Eosinophils % % Basophils % % Metamyelocytes % Nucleated RBC % (0.0-0.3) % Absolute Neutrophils (1.2-6.7) 10^3/uL Absolute Lymphocytes (1.2-3.4) 10^3/uL Absolute Monocytes (0.1-0.8) 10^3/uL Absolute Eosinophils (0.0-0.7) 10^3/uL Absolute Basophils (0.0-0.2) 10^3/uL RBC Morphology D-Dimer (<500) ng/mlFEU VBG Lactate 1.2 (<or=2.0) mmol/L Sodium Potassium Chloride Carbon Dioxide Anion Gap BUN Creatinine Est GFR (CKD-EPI 2020) Glucose Calcium Magnesium Total Bilirubin AST ALT Alkaline Phosphatase Troponin I Pending 62 Total Protein Albumin COVID-19 Source Nasopharynx SARS-CoV-2 (PCR) Negative (Negative) Influenza Type A (PCR) Negative (Negative) Influenza Type B (PCR) Negative (Negative) Urine Legionella Ag Pending RSV (PCR) Negative (Negative) 10/11/24 10/11/24 10/11/24 Range/Units 15:37 14:55 14:36 WBC 27.61 H* (4.4-10.8) 10^3/uL RBC 3.98 L (4.36-5.78) 10^6/uL Hgb 12.8 L (13.5-17.5) g/dL Hct 35.9 L (40.0-50.0) % MCV 90 (80-95) fL MCH 32.2 (27.0-33.0) pg MCHC 35.7 (32.0-36.0) % RDW 15.9 H (11.8-14.1) % Plt Count 261 (130-400) 10^3/uL MPV 12.2 H (8.0-11.0) fL Immature Gran % 0.0 % Neutrophils % 85.0 % Band Neutrophils % 4 % Lymphocytes % 4.0 % Monocytes % 6.0 % Eosinophils % 0.0 % Basophils % 0.0 % Metamyelocytes % 1 Nucleated RBC % 0.0 (0.0-0.3) % Absolute Neutrophils 24.57 H (1.2-6.7) 10^3/uL Absolute Lymphocytes 1.10 L (1.2-3.4) 10^3/uL Absolute Monocytes 1.66 H (0.1-0.8) 10^3/uL Absolute Eosinophils 0.00 (0.0-0.7) 10^3/uL Absolute Basophils 0.00 (0.0-0.2) 10^3/uL RBC Morphology Normal D-Dimer 1933 H (<500) ng/mlFEU VBG Lactate (<or=2.0) mmol/L Sodium 125 L Cancelled Cancelled Potassium 3.4 L Cancelled Cancelled Chloride 90 L Cancelled Cancelled Carbon Dioxide 25.9 Cancelled Cancelled Anion Gap 9.1 Cancelled Cancelled BUN 61 H Cancelled Cancelled Creatinine 0.8 Cancelled Cancelled Est GFR (CKD-EPI 2020) 100.69 Cancelled Cancelled Glucose 113 H Cancelled Cancelled Calcium 8.2 L Cancelled Cancelled Magnesium 2.9 H Cancelled Cancelled Total Bilirubin 2.1 H Cancelled Cancelled AST 109 H Cancelled Cancelled ALT 54 Cancelled Cancelled Alkaline Phosphatase 308 H Cancelled Cancelled Troponin I 62 Cancelled Cancelled Total Protein 6.4 Cancelled Cancelled Albumin 1.4 L Cancelled Cancelled COVID-19 Source SARS-CoV-2 (PCR) (Negative) Influenza Type A (PCR) (Negative) Influenza Type B (PCR) (Negative) Urine Legionella Ag RSV (PCR) (Negative) 10/11/24 15:45 Blood Culture - Pending Blood 10/11/24 15:37 Blood Culture - Pending Blood Intake and Output - 24 Hour Total 10/11/24 14:09 thru 10/11/24 18:19 Intake Total 60 Balance 60 Weight 63.8 kg Intake: IV 60 Falls Risk Assessment History of Falls Previous History 10/11/24 16:57 Contributing Factors Unstable,Impairments 10/11/24 16:57 Ambulatory Aids Uses ambulatory device 10/11/24 16:57 Tubes/Lines W/no contributing factors 10/11/24 16:57 Gait Evaluation W/no contributing factors 10/11/24 16:57 Cognition Cognitive impairment 10/11/24 16:57 Fall Total Score 71 10/11/24 16:57 Level of Risk High Risk 10/11/24 16:57 Problems (Last Reviewed 08/26/22 @ 20:13 by Godwin Griffin DO) Severe sepsis (Acute) On deep vein thrombosis (DVT) prophylaxis (Acute) Nicotine dependence (Acute) Acute hypoxic respiratory failure (Acute) CAP (community acquired pneumonia) (Acute) v v v v v v v v v Sending and/or Receiving Nurses: Please use comment section below to note any information pertinent to the patient hand-off not included above. Information / Comments: Report received from: Alida PALAFOX
[2024-10-11] MEDS: Lactated Ringers 1,000 ML 75 ML IV (19:04)
[2024-10-11 19:24] LABS: Troponin I 59 ng/L (<or=76)
[2024-10-11] MEDS: Albuterol/Ipratropium 3 ML UPD VIAL UPD (21:34)
[2024-10-11 21:56] LABS: C Diff PCR Negative (Negative); EPI 027-NAP1-B1 PRESUMPTIVE NEGATIVE
[2024-10-11] MEDS: Potassium Chloride 20 MEQ TABCR 40 MEQ PO (22:57)
[2024-10-11] MEDS: guaiFENesin 600 MG TABCR PO (22:57)
[2024-10-11] MEDS: Gabapentin 100 MG CAP 400 MG PO (22:57)
[2024-10-11] MEDS: Melatonin 3 MG TAB PO (22:58)
[2024-10-11] MEDS: DOXYCYCLINE 100 MG in Normal Saline 100 ML IVPB (23:00)
[2024-10-11] MEDS: Enoxaparin 40 MG/0.4 ML SYR SC (23:00)
[2024-10-11] MEDS: Normal Saline Flush 10 ML SYR IVP (23:01)
[2024-10-11] MEDS: Benzonatate 100 MG CAP PO (23:01)
[2024-10-12] VITALS (8 sets, daily range): BP systolic 94–102; BP diastolic 51–59; PULSE 83–101; RESP 2–26; TEMP 36.4–37.6; O2SAT 90–96
[2024-10-12] MEDS: Albuterol/Ipratropium 3 ML UPD VIAL UPD (04:16)
[2024-10-12 07:00] LABS: Abs Immature Grans 1.55 10^3/uL (0.0-0.06); HCT 30.6 % (40.0-50.0); HGB 11.3 g/dL (13.5-17.5); MCHC 36.9 % (32.0-36.0); MCV 90 fL (80-95); MPV 11.5 fL (8.0-11.0); Platelet Count 258 10^3/uL (130-400); RBC 3.42 10^6/uL (4.36-5.78); RDW 15.9 % (11.8-14.1); RDW-SD 52.2 fL; WBC 23.02 10^3/uL (4.4-10.8)
[2024-10-12 07:21] LABS: BUN 41 mg/dL (7-18); CREATININE 0.6 mg/dL (0.70-1.30); Chloride 92 mmol/L (98-107); Estimated GFR 109.83 (mL/min/1.73m2); Glucose 116 mg/dL (74-106); Sodium 126 mmol/L (136-145)
[2024-10-12 07:28] LABS: Absolute Lymphocyte Count 0.92 10^3/uL (1.2-3.4); Absolute Monocyte Count 2.76 10^3/uL (0.1-0.8); Absolute Neutrophil Count 19.34 10^3/uL (1.2-6.7); Bands % 4 %; Diff Comment Manual Differential; RBC Morphology Normal
[2024-10-12] MEDS: Normal Saline Flush 10 ML SYR IVP ×3 (07:59→20:55)
[2024-10-12] MEDS: Escitalopram 10 MG TAB 5 MG PO (08:26)
[2024-10-12] MEDS: Benzonatate 100 MG CAP PO ×3 (08:26→20:54)
[2024-10-12] MEDS: Potassium Chloride 20 MEQ TABCR 40 MEQ PO ×2 (08:26→20:53)
[2024-10-12] MEDS: guaiFENesin 600 MG TABCR PO ×2 (08:26→20:53)
[2024-10-12] MEDS: DOXYCYCLINE 100 MG in Normal Saline 100 ML IVPB ×2 (08:27→20:54)
[2024-10-12] MEDS: Tiotropium Bromide-Respimat 10 PUFF INH 2 PUFF IH (08:42)
[2024-10-12] MEDS: Budesonide/Formoterol 160/4.5 6 GM 60 PUFF INH IH ×2 (08:43→20:45)
[2024-10-12] MEDS: Gabapentin 100 MG CAP 400 MG PO ×3 (09:27→20:53)
[2024-10-12] MEDS: cefTRIAXone 1 GM/50 ML BAG IVPB (09:30)
--- NOTE | 2024-10-12 10:12 | PDOC.CMIN ---
Date of service: 10/12/24 Time of Service: 10:12 Care Management Initial Assmt Initial Assessment Reason for Hospitalization: Sepsis and respiratory failure Functional Status/Living Situation Patient Presentation: Rios was sitting up in bed visiting with his Ian. He was alert and oriented and engaged well with CM. Rios was admitted with pneumonia and sepsis on 10/11/24. He has responded well to antibiotic therapy and is no longer requiring supplemental oxygen. Rios lives in an apartment in [facility] with Ian. He does not have any children. He informed CM that he has been on disability for the past 5 to 7 years. He is independent with ADLs and does not require the use of a cane or walker. Rios receives food assistance ([employer]) but no other services. Town of Residence: [facility] Resides with: Spouse (Nadia Gonzalez) Employment Status: Disabled Instrumental Activities of Daily Living (ADLs): Independent Medications Medication Management: No Issues/Barriers identified Physical Functioning/Mobility Assistive Device: none Advance Directives Advance Directives: Do you have an Advance Directive: N 10/29/14 09:18 AD On File at [facility]: N 10/29/14 09:18 Date Asked 10/11/24 10/11/24 14:31 AD Date Reviewed COLST On File at [facility] COLST Date Scanned Code Status Resuscitation Status Full Code Portal Pt does not currently have a portal and education provided: Yes Insurance Coverage/Financial Issues Insurance: Medicaid Care Team Visit Care Team Role Provider Type Cesilia Jaimes APRN MD [facility] STAFF PHYSICIAN PINEDA ELLIS NP Primary Care Provider NON-[facility] STAFF PHYSICIAN Marilee Montaño MD Emergency Provider [facility] STAFF PHYSICIAN John Rangel MD Admit Provider [facility] STAFF PHYSICIAN Attending Provider Discharge Potential Discharge Needs: PCP F/U Appt Anticipated Barriers to Discharge: None Identified Patient/Family Education Needs: Review discharge instructions, discuss Ask Me Three Transportation: Private vehicle Plan: Anticipate Rios will be discharged home with no new services. He will follow up with his PCP and plan of care and will transport with family. CM will follow and continue to assess for discharge needs. Social Determinants of Health Screening Will the Patient Participate in the Screening?: Declined to provide Do you worry about having a steady place to live?: no In the past 12 months, have you had to go without electric, gas, oil or water in your home?: no Has lack of transportation kept you from medical appointments or from doing things needed for daily living?: no Has anyone in your life made you feel unsafe or unsupported?: no How hard is it for you to pay for the very basics like food, housing, medical care, and heating? Would you say it is:: Not hard at all Do you want help finding or keeping work or a job?: I do not need or want help If for any reason you need help with day-to-day activities such as bathing, preparing meals, shopping, managing finances, etc., do you get the help you need?: I don?t need any help How often do you feel lonely or isolated from those around you?: Never Do you speak a language other than German at home?: No Does the patient want assistance with any of the above?: No Health Related Social Needs Health related social needs details: n/a PFSH All Active Problems (Updated 10/11/24 @ 18:32 by YEVGENIY BETANCUR) Severe sepsis (Acute) On deep vein thrombosis (DVT) prophylaxis (Acute) Nicotine dependence (Acute) Acute hypoxic respiratory failure (Acute) CAP (community acquired pneumonia) (Acute) Diarrhea (Acute) Acute hyponatremia (Acute) Left upper lobe pneumonia (Acute) Sepsis (Acute) Trauma (Acute) Acute alcohol intoxication (Acute) Rotatory subluxation of atlantoaxial joint (Acute) Fracture of nasal bone (Acute) Lumbar radiculopathy, right (Chronic) Left lumbar radiculitis (Chronic) Spondylosis of lumbar region without myelopathy or radiculopathy (Chronic) Medical History Aggression Alcohol abuse, in remission Anxiety Anxiety Back pain Bilateral ankle fractures Chronic cough Chronic knee pain Chronic left shoulder pain Chronic pain COPD (chronic obstructive pulmonary disease) Depression Edentulous Elevated blood pressure reading Elevated LFTs Fatigue GERD (gastroesophageal reflux disease) Headache Herniated disc Homeless Hx of fracture of nose Hydrocele, left Insomnia Left foot pain Left leg pain Left shoulder pain Onychomycosis Peripheral neuropathy Spondylosis of lumbar spine Tobacco use disorder Ulna fracture Surgical History Colonoscopy - MAC (05/30/17) repair fractured ankels repair hyrocele repair of thumb Social History Smoking/Tobacco Use Status: Current every day Tobacco Type: cigarettes Smoking risk assessment performed?: Yes Alcohol Intake: current Alcohol Intake frequency: 0-2 drinks per day Alcohol type: beer Drug use: Daily Substance use type: marijuana Housing: apartment Do you feel safe at home: Yes Do you feel safe in your relationship?: Yes
--- NOTE | 2024-10-12 10:51 | NUR.NOTE ---
patient AxOx4 this shift, denies pain, OOBTC for breakfast poor appetite continues, will talk to MDs about nutrition consult, pt weaned off O2 and on room air, lungs diminished but no active crackles noted, weak but steady with transitions from bed to chair/commode, having liquid BMs, stool panel sent, so far negative for cdiff. PIV intact, resting in bed at this time, call johnson in reach, bed alarm on. Nursing Note:
--- NOTE | 2024-10-12 13:02 | W.NUTCONSULT ---
Date of service: 10/12/24 Time of Service: 12:40 Nutritional Consult ASSESSMENT: received consult request regarding weight loss and decreased appetite. Mr Ko is a 59yo male being treated for severe sepsis, acute hypoxic resp failure, CAP. Hx of COPD with current tobacco use. Pt laying in bed with lunch tray on my visit - at almost half of a chicken salad sanwich, 100% of ice cream and a couple bites of the high protein Gelatein offered at the meal (does not want again). He lives at home with in a basement apartment. Historical weight data shows ~57lb weight loss in just about 3 years - a 23% loss of body weight. He states most significant weight loss has come in the last 6 months. typically in bed most of the day - has been having diarrhea and gets up to go at home. cooks most meals and he reports he is usual at eating 3 meals per day. Lately appetite is low. Does take Boost ONS at home occasionally and he would rather these than the Gelatein offered today. He has not teeth but denies and barriers chewing and swallowing, stating he can even chew up a salad if he's in the mood. Sodium low today and being addressed but comment hyponatremia at baseline per provider. Calcium lab at 8.0 today (? low vitamin D involved) Magnesium at 2.9 today Nutrition focused physcial exam not performed as patient declined. Visual observation positive for temporal muscle wasting and sunken orbital fat pads. Estimated energy needs: 1777kcals (REEx1.2) recommend 1800 kcals too help weight rebound. 75-94g protein (1.2-1.5g /kg), 1777mL fluid NUTRITIONAL DIAGNOSIS: moderate to severe malnutrition in the context of chronic illness as evidenced by<50% of energy needs met over the last month at minimum. INTERVENTION: will offer supplemental kcal/protein per BOOST at all meals and encouraged continued ordering of liked foods like ice cream, meats, dairy products MONITORING AND EVALUATION: will monitor po intake, weight, nutrition-related labs. Time Spent in Nutritional Counseling and Treatment: 10 min
--- NOTE | 2024-10-12 15:37 | PGE_ITS ---
Date of Service Date of service: 10/12/24 Time of Service: 18:00 Assessment and Plan Assessment and plan (1) Severe sepsis: Status: Acute Assessment and plan: Sepsis criteria met with tachycardia at 96 and tachypnea at 26 as well as WBC of 27?source is being respiratory as per point 3 Severity criteria met with hypotension resolving IVF crystalloid infusion Improving WBC to 22 today - resolved hypotension (2) Acute hypoxic respiratory failure: Status: Acute Assessment and plan: Patient w/o chronic O2 requirement at home and presenting with new oxygen requirement as per EMS to maintain sat 92% and above on 2 L/min of oxygen via nasal cannula - Improving today 90% on RA trial documented ACS and Pulmonary emboli ruled out on admission Large left upper lobe consolidation as per CT imaging confirming location of pneumonia Wean Oxygen for saturation 88-92% -Ongoing tobacco abuse w/o Dx PFT to confirm COPD but documented PMHx of hypercapnia during ED visits Continue doxycycline, ceftriaxone Blood cultures pending legionella pending Continue mucinex, benzonatate, PRN nebs Acapella (3) CAP (community acquired pneumonia): Status: Acute Assessment and plan: As above (4) COPD (chronic obstructive pulmonary disease): Assessment and plan: Continue home meds (5) Hyponatremia: Status: Inactive Assessment and plan: Appears chronic in nature, Na 126 from 125 - NS at 100 cc/hr No obvious confusion but slower execution BMP at 18 BMP in the morning (6) Nicotine dependence: Status: Acute Assessment and plan: Continue NRT (7) Diarrhea: Status: Acute Assessment and plan: C-diff negative Imodium PRN Stool PCR pending 20 kg weight loss lately- nutrition consult (8) On deep vein thrombosis (DVT) prophylaxis: Status: Acute Assessment and plan: Continue low molecular weight heparin Discussed with Dr. Rangel Subjective Subjective Patient reports: no new complaints, feels better, tolerating liquids well, tolerating a regular diet, bowel movement, diarrhea, shortness of breath and other (reports fatigue); denies nausea, vomiting or fever Exam Narrative Exam Narrative: Constitutional Tired and cachexic appearing 59 yo male patient looking older than stated age, speaks in short sentences- words, slow to answer questions. Neuro:alert and oriented X4 ,no neurological focal deficit Resp:coarse bilateral breath sounds L>R Cardio: regular rhythm, S1, S2, no murmur GI: Abdomen is not distended, soft and non tender, bowel sounds are present Extremities: strength 5/5 to bilateral lower and upper extremities Psych: RASS 0, congruent mood and normal affect. Objective Last Vital Signs Temp 36.4 C L 10/12/24 11:20 Pulse 92 H 10/12/24 11:20 Resp 17 10/12/24 11:20 BP 102/56 L 10/12/24 11:20 Pulse Ox 90 L 10/12/24 11:20 Laboratory Results - last 24 hr 10/11/24 10/11/24 10/11/24 15:37 17:00 17:05 WBC RBC Hgb Hct MCV MCH MCHC RDW Plt Count MPV Immature Gran % Neutrophils % Band Neutrophils % Lymphocytes % Monocytes % Eosinophils % Basophils % Nucleated RBC % Absolute Neutrophils Absolute Lymphocytes Absolute Monocytes Absolute Eosinophils Absolute Basophils RBC Morphology VBG Lactate 1.2 Sodium 125 L Potassium 3.4 L Chloride 90 L Carbon Dioxide 25.9 Anion Gap 9.1 BUN 61 H Creatinine 0.8 Est GFR (CKD-EPI 2020) 100.69 Glucose 113 H Calcium 8.2 L Magnesium 2.9 H Total Bilirubin 2.1 H AST 109 H ALT 54 Alkaline Phosphatase 308 H Troponin I 62 62 Total Protein 6.4 Albumin 1.4 L Stl C.difficile Tox PCR COVID-19 Source Nasopharynx SARS-CoV-2 (PCR) Negative Influenza Type A (PCR) Negative Influenza Type B (PCR) Negative RSV (PCR) Negative 10/11/24 10/11/24 10/12/24 19:00 20:57 06:40 WBC 23.02 H RBC 3.42 L Hgb 11.3 L Hct 30.6 L MCV 90 MCH 33.0 MCHC 36.9 H RDW 15.9 H Plt Count 258 MPV 11.5 H Immature Gran % See Differential Neutrophils % 80.0 Band Neutrophils % 4 Lymphocytes % 4.0 Monocytes % 12.0 Eosinophils % 0.0 Basophils % 0.0 Nucleated RBC % 0.0 Absolute Neutrophils 19.34 H Absolute Lymphocytes 0.92 L Absolute Monocytes 2.76 H Absolute Eosinophils 0.00 Absolute Basophils 0.00 RBC Morphology Normal VBG Lactate Sodium 126 L Potassium 4.0 Chloride 92 L Carbon Dioxide 26.0 Anion Gap 8.0 BUN 41 H Creatinine 0.6 L Est GFR (CKD-EPI 2020) 109.83 Glucose 116 H Calcium 8.0 L Magnesium Total Bilirubin AST ALT Alkaline Phosphatase Troponin I 59 Total Protein Albumin Stl C.difficile Tox PCR Negative COVID-19 Source SARS-CoV-2 (PCR) Influenza Type A (PCR) Influenza Type B (PCR) RSV (PCR) PAWSS Have you Been Recently Intoxicated or Drunk Within the Last 30 days?: No Have you Ever Experienced Previous Episodes of Alcohol Withdrawal?: No Have you ever Experienced Withdrawal Seizures?: No Have you ever Experienced Delirium Tremens(DT)s?: No Have you ever undergone Alcohol Rehabilitation Treatment (i.e, inpt ot outpatient treatment programs)?: No Have you ever Experienced Blackouts?: No Have you ever Combined Alcohol with other Downers within the last 90 days?: No Have you ever Combined Alcohol with any other Substance of Abuse during the last 90 days?: No Result: 0 Time Spent with Patient Time Spent with Patient: >50 minutes Time was spent: preparing to see the patient(eg.review tests), obtaining and/or reviewing separately otained hiistory, ordering medications,tests, procedures, referring, communicating with other health career center director, indepentently interpreting results, counseling the patient and care coordination
[2024-10-12] MEDS: Loperamide 2 MG CAP PO (17:32)
[2024-10-12] MEDS: Normal Saline 1,000 ML 100 ML IV (17:33)
[2024-10-12] MEDS: Melatonin 3 MG TAB PO (20:53)
[2024-10-12] MEDS: Enoxaparin 40 MG/0.4 ML SYR SC (20:54)
[2024-10-12 23:34] LABS: Legionella Ag Detection Urine Negative (Negative)
[2024-10-13] VITALS (7 sets, daily range): BP systolic 101–122; BP diastolic 56–76; PULSE 84–100; RESP 16–28; TEMP 36.2–37.1; O2SAT 85–94
[2024-10-13] MEDS: Acetaminophen 500 MG TAB 1000 MG PO (00:52)
[2024-10-13] MEDS: Normal Saline 1,000 ML 100 ML IV (04:24)
[2024-10-13 06:57] LABS: Abs Immature Grans 2.17 10^3/uL (0.0-0.06); HCT 32.5 % (40.0-50.0); HGB 11.8 g/dL (13.5-17.5); MCH 33.5 pg (27.0-33.0); MCHC 36.3 % (32.0-36.0); MCV 92 fL (80-95); Platelet Count 260 10^3/uL (130-400); RBC 3.52 10^6/uL (4.36-5.78); RDW 15.9 % (11.8-14.1)
[2024-10-13 07:07] LABS: BUN 16 mg/dL (7-18); CREATININE 0.5 mg/dL (0.70-1.30); Calcium 7.9 mg/dL (8.5-10.1); Chloride 95 mmol/L (98-107); Estimated GFR 116.04 (mL/min/1.73m2); Glucose 110 mg/dL (74-106); Potassium 4.7 mmol/L (3.5-5.1); Sodium 126 mmol/L (136-145)
[2024-10-13 07:55] LABS: Absolute Lymphocyte Count 1.44 10^3/uL (1.2-3.4); Absolute Neutrophil Count 20.64 10^3/uL (1.2-6.7); Atypical Lymphocytes % 1 %; Bands % 6 %
[2024-10-13 07:56] LABS: Absolute Monocyte Count 1.68 10^3/uL (0.1-0.8); Diff Comment Manual Differential; Metamyelocytes % 1; RBC Morphology Normal
[2024-10-13] MEDS: Tiotropium Bromide-Respimat 10 PUFF INH 2 PUFF IH (08:44)
[2024-10-13] MEDS: Budesonide/Formoterol 160/4.5 6 GM 60 PUFF INH IH (08:44)
[2024-10-13] MEDS: DOXYCYCLINE 100 MG in Normal Saline 100 ML IVPB (08:52)
[2024-10-13] MEDS: cefTRIAXone 1 GM/50 ML BAG IVPB (08:53)
[2024-10-13] MEDS: Benzonatate 100 MG CAP PO ×2 (08:53→14:08)
[2024-10-13] MEDS: Escitalopram 10 MG TAB 5 MG PO (08:53)
[2024-10-13] MEDS: Normal Saline Flush 10 ML SYR IVP (08:56)
[2024-10-13] MEDS: Gabapentin 100 MG CAP 400 MG PO ×2 (09:03→14:08)
[2024-10-13] MEDS: guaiFENesin 600 MG TABCR PO (09:04)
[2024-10-13] MEDS: Potassium Chloride 20 MEQ TABCR 40 MEQ PO (09:05)
[2024-10-13 11:23] LABS: Campylobacter PCR Negative (Negative); Salmonella PCR Negative (Negative); Shiga Toxin PCR Negative (Negative); Shigella/Enteroinvasive Ecoli Negative (Negative)
--- NOTE | 2024-10-13 14:26 | W.PM.DS.N ---
Date of service: 10/13/24 Time of Service: 14:26 DS: Diagnosis Discharge Diagnosis (1) Severe sepsis: Status: Acute (2) Acute hypoxic respiratory failure: Status: Acute (3) CAP (community acquired pneumonia): Status: Acute (4) COPD (chronic obstructive pulmonary disease): (5) Hyponatremia: Status: Inactive (6) Nicotine dependence: Status: Acute (7) Diarrhea: Status: Acute (8) On deep vein thrombosis (DVT) prophylaxis: Status: Acute Discharge Plan Disposition Patient Disposition: Home Condition: Improving Discharge Details Reason For Visit: Sepsis, Acute hypoxic respiratory failure, CAP Admit Date/Time: 10/11/24 17:10 Admit Provider: John Rangel Attending Provider: John Rangel Primary Care Provider: PINEDA ELLIS [facility] Course Hospital Course: This 59-year-old male patient with a past medical history significant for COPD, alcohol use, presented to the ED via EMS on 09/25/24 for evaluation of several weeks of wheezing, productive cough with brownish mucus, poor p.o. intake and fatigue with unintentional weight loss and diarrhea with worsening respiratory distress today. The patient reported that he had just felt unwell, denies fever, nausea, and vomiting,or dysuria ; reported chills and diarrhea. On arrival was hypoxic with sat in the 80's on room air resolving on 3l/min via NC, tachycardic with HR 101, afebrile. Workup in the ED was positive for leukocytosis at 27, ANC at 24, D-dimer at 1933, Na at 125 mostly likely chronic, K 3.4, BUN 61 with baseline Cr. Imaging was positive for L upper lobe pneumonia, negative for PE as per CTA. The patient will be admitted to the medical surgical floor for evaluation and management of acute hypoxic respiratory failure, sepsis, pneumonia. The patient was treated with ceftriaxone and azythromycin in the ED and one liter of IV crystalloids. With resolved hypoxic respiratory failure, improving leukocytosis , improving hyponatremia, the patient will be discharged home on prednisone burst, oral doxycycline and cefpodoxime, mucinex, benzonatate and PRN inhalers for shortness of breath and wheezing. The patient will have to follow-up with his PCP within 7 days of discharge. Telmisartan to be resumed s/p evaluation during PCP follow-up as your blood pressures were mostly low range during the stay. Recommendations for PCP follow-up: -Telmisartan re-evaluation -Pulmonary referral -Smoking cessation -Nutrition referral -Chronic diarrhea and weight loss 57 kg over [address] Caceres Home Meds and New Rx's Prescriptions: New benzonatate 100 mg Capsule 100 mg PO TID Qty: 14 0RF guaifenesin [Mucus Relief ER] 600 mg Tablet Extended Release 12hr 600 mg PO BID Qty: 14 0RF nicotine 21 mg/24 hr Patch 24 Hour 21 mg transdermal DAILY Qty: 28 0RF prochlorperazine maleate 5 mg Tablet 5 mg PO Q8H PRN PRNQty: 10 0RF ipratropium-albuterol 20-100 mcg/actuation mist 1 puff inhalation Q6H PRN (Reason: Pneumonia, SOB wheezing ) Qty: 4 0RF prednisone 20 mg tablet 40 mg PO DAILY Qty: 10 0RF doxycycline hyclate 100 mg tablet 100 mg PO BID Qty: 8 0RF cefpodoxime 200 mg tablet 200 mg PO Q12H Qty: 10 0RF Rx Instructions: must administer with a meal/food Bio-K plus 50 billion cell capsule,delayed release(DR/EC) 1 cap PO DAILY Qty: 7 0RF Rx Instructions: Take 3 hours apart from antibiotics Continued budesonide-formoterol [Symbicort] 160-4.5 mcg/actuation HFA aerosol inhaler 1 puff IH BID albuterol sulfate [ProAir HFA] 90 mcg/actuation HFA aerosol inhaler 1 - 2 puff IH .COMPLEX PRN Patient Comments: 1 - 2 puff IH Q4-Q6 PRN; Rx Instructions: 1 - 2 puff IH Q4-Q6 PRN; gabapentin 800 mg tablet 400 mg PO TID Patient Comments: TAKE 1 TABLET BY MOUTH THREE TIMES DAILY tiotropium bromide [Spiriva with HandiHaler] 18 mcg capsule, w/inhalation device 1 cap inhalation DAILY Rx Instructions: puncture 1 cap using device; one dose = 2 inhalations escitalopram oxalate 5 mg tablet 5 mg PO DAILY Patient Comments: TAKE ONE TABLET BY MOUTH EVERY DAY Held telmisartan 40 mg tablet 40 mg PO DAILY Hold Instructions: Resume on 10/19/24. Resume as per your PCP during follow-up Patient Comments: TAKE ONE TABLET BY MOUTH EVERY DAY DIRECTED FOR BLOOD PRESSURE Discharge Instructions Activity:: Activity as Tolerated Equipment/Supplies:: No Equipment Needed Diet:: heart healthy DS: Summary Time Spent with Patient providing and/or coordinating discharge services: Greater than 30 minutes Status at Discharge Functional status at discharge: independent ambulation Overall status at discharge: patient is progressing back to baseline Mental Status: mental status grossly normal Speech and Movement: speech and movement normal Mood: congruent mood Affect: normal affect Quality:SDOH Health Related Social Needs: Health related social needs food insecurity (Z59.41) Health related social needs details n/a Health related social needs details: n/a Exam Narrative Exam Narrative: Constitutional Cachexic appearing 59 yo male patient looking older than stated age, speaks in full sentences- no acute distress Neuro:alert and oriented X4 ,no neurological focal deficit Resp:Improved bilateral breath sounds L>R, ronchi clearing with cough Cardio: regular rhythm, S1, S2, no murmur GI: Abdomen is not distended, soft and non tender, bowel sounds are present Extremities: strength 5/5 to bilateral lower and upper extremities Psych: RASS 0, congruent mood and normal affect. Psych Mental Status: mental status grossly normal Speech and Movement: speech and movement normal Mood: congruent mood Affect: normal affect DS: Data Vitals/I&O Vitals and I&O: Vital Signs Temperature 36.2 C L 10/13/24 07:28 Temperature Source Temporal Artery Scan 10/13/24 07:28 Pulse 84 10/13/24 07:28 Pulse Rhythm Regular 10/11/24 23:00 Pulse 96 H 10/11/24 18:01 Respiratory Rate 16 10/13/24 07:28 Respiratory Effort Normal 10/11/24 23:00 Respiratory Depth Normal 10/11/24 23:00 Respiratory Pattern Normal 10/11/24 23:00 Blood Pressure 108/68 10/13/24 07:28 Blood Pressure Mean 58 10/11/24 18:01 Pulse Oximetry 94 10/13/24 07:28 Oxygen Delivery Method Room Air 10/13/24 07:28 Oxygen Flow Rate 0 10/13/24 07:28 Pain Level 0 10/13/24 07:28 Comment O2 goal >88% 10/12/24 17:23 Intake & Output 10/12/24 10/13/24 10/13/24 23:59 11:59 23:59 Intake Total 1440 / 4080 1250 / 1260 10 / 1260 Output Total 600 / 1550 900 / 900 Balance 840 / 2530 350 / 360 10 360 Intake: IV 60 / 1260 1250 / 1260 10 / 1260 Oral 1380 / 2820 Output: Urine 400 / 1350 900 / 900 Stool 200 / 200 Other: Urine Color Yellow Light Tiffanie Urine Appearance Clear Clear Urine Odor None Normal Comment x1 with stool Stool Size Small Moderate Stool Characteristics Liquid Liquid Brown Brown Data Completed and Pending Labs on day of discharge: Labs from last 24 hours 10/13/24 10/13/24 14:00 06:40 WBC 24.00 H RBC 3.52 L Hgb 11.8 L Hct 32.5 L MCV 92 MCH 33.5 H MCHC 36.3 H RDW 15.9 H Plt Count 260 MPV 11.0 Immature Gran % See Differential Neutrophils % 80.0 Band Neutrophils % 6 Lymphocytes % 5.0 Atypical Lymphs % 1 Monocytes % 7.0 Eosinophils % 0.0 Basophils % 0.0 Metamyelocytes % 1 Nucleated RBC % 0.0 Absolute Neutrophils 20.64 H Absolute Lymphocytes 1.44 Absolute Monocytes 1.68 H Absolute Eosinophils 0.00 Absolute Basophils 0.00 RBC Morphology Normal Sodium Pending 126 L Potassium Pending 4.7 Chloride Pending 95 L Carbon Dioxide Pending 25.0 Anion Gap Pending 6.0 BUN Pending 16 Creatinine Pending 0.5 L Est GFR (CKD-EPI 2020) Pending 116.04 Glucose Pending 110 H Calcium Pending 7.9 L Preliminary micro results at discharge 10/11/24 15:45 Blood Culture - Preliminary Blood NO GROWTH 24 HOURS 10/11/24 15:37 Blood Culture - Preliminary Blood NO GROWTH 24 HOURS PFSH All Active Problems (Updated 10/13/24 @ 14:55 by Cesilia Jaimes APRN) Severe sepsis (Acute) On deep vein thrombosis (DVT) prophylaxis (Acute) Nicotine dependence (Acute) Acute hypoxic respiratory failure (Acute) CAP (community acquired pneumonia) (Acute) Diarrhea (Acute) Acute hyponatremia (Acute) Left upper lobe pneumonia (Acute) Sepsis (Acute) Trauma (Acute) Acute alcohol intoxication (Acute) Rotatory subluxation of atlantoaxial joint (Acute) Fracture of nasal bone (Acute) Lumbar radiculopathy, right (Chronic) Left lumbar radiculitis (Chronic) Spondylosis of lumbar region without myelopathy or radiculopathy (Chronic) Medical History Aggression Alcohol abuse, in remission Anxiety Anxiety Back pain Bilateral ankle fractures Chronic cough Chronic knee pain Chronic left shoulder pain Chronic pain COPD (chronic obstructive pulmonary disease) Depression Edentulous Elevated blood pressure reading Elevated LFTs Fatigue GERD (gastroesophageal reflux disease) Headache Herniated disc Homeless Hx of fracture of nose Hydrocele, left Insomnia Left foot pain Left leg pain Left shoulder pain Onychomycosis Peripheral neuropathy Spondylosis of lumbar spine Tobacco use disorder Ulna fracture Surgical History Colonoscopy - MAC (05/30/17) repair fractured ankels repair hyrocele repair of thumb Social History Smoking/Tobacco Use Status: Current every day Tobacco Type: cigarettes Smoking risk assessment performed?: Yes Alcohol Intake: current Alcohol Intake frequency: 0-2 drinks per day Alcohol type: beer Drug use: Daily Substance use type: marijuana Housing: apartment Do you feel safe at home: Yes Do you feel safe in your relationship?: Yes Time Spent with Patient Time Spent with Patient: 70-84 minutes4 Time was spent: preparing to see the patient(eg.review tests), obtaining and/or reviewing separately otained hiistory, ordering medications,tests, procedures, referring, communicating with other health care management coordinator, indepentently interpreting results, counseling the patient and care coordination
[2024-10-13] MEDS: predniSONE 20 MG TAB 40 MG PO (14:41)
--- NOTE | 2024-10-13 14:51 | PDOC.CMDIS ---
Date of service: 10/13/24 Time of Service: 14:51 LACE Index Scoring Tool Questions: Length of Stay (in days): 1 Was the patient admitted via the E.D.?: Yes Comorbidities: Chronic Pulmonary Disease and Liver or Renal Disease E.D. Visits: 1 Answers: Total Score: 10 Risk of Readmission: High Risk Care Management Discharge Plan Reason for Hospitalization: pneumonia Discharge Plan: Rios will be discharged home with no new services. He will follow up with his PCP and plan of care and will transport with family. Patient/Family Education Needs: Review discharge instructions, limitations, follow up plan and discuss Ask Me Three SDOH Health Related Social Needs: Health related social needs food insecurity (Z59.41) Health related social needs details n/a Health related social needs details: n/a
[2024-10-13 15:01] LABS: Anion Gap 5.4 mmol/L (3-11); BUN 9 mg/dL (7-18); CO2 24.6 mmol/L (21.0-32.0); CREATININE 0.6 mg/dL (0.70-1.30); Calcium 7.7 mg/dL (8.5-10.1); Chloride 96 mmol/L (98-107); Estimated GFR 109.83 (mL/min/1.73m2); Glucose 130 mg/dL (74-106); Potassium 5.2 mmol/L (3.5-5.1); Sodium 126 mmol/L (136-145)
--- NOTE | 2024-10-13 18:10 | RESPIRATORY ---
Addendum entered by Shane Otoole 10/15/24 07:37: [employer] notified in [employer]learn[employer] platform that we sent patient home with one of their tanks from the [facility]. Original Note: 10/13/2024 Patient tolerated walk test well and required 2L with ambulation to maintain greater than 88% SPO2. Pt was set up with a tank from [employer].
== END 2024-10-13 18:58 | disposition home or self-care (01) | DRG 871 ==
LOC: ER 17:19 → MS 18:31
PROVIDERS: Admitting Provider Hospitalist; Emergency Provider Emergency Medicine; PCP Nurse Practitioner Family; Responsible Provider Nurse Practitioner Acute Care; Visit Provider Hospitalist
DX: A41.9 Sepsis, unspecified organism (principal); J18.9 Pneumonia, unspecified organism; J96.01 Acute respiratory failure with hypoxia; J44.0 Chronic obstructive pulmonary disease with (acute) lower respiratory infection; E87.1 Hypo-osmolality and hyponatremia; Z68.1 Body mass index [BMI] 19.9 or less, adult; R65.20 Severe sepsis without septic shock; F17.210 Nicotine dependence, cigarettes, uncomplicated; Z79.899 Other long term (current) drug therapy; R19.7 Diarrhea, unspecified; R63.4 Abnormal weight loss; M47.27 Other spondylosis with radiculopathy, lumbosacral region; M48.07 Spinal stenosis, lumbosacral region; F10.11 Alcohol abuse, in remission; F41.9 Anxiety disorder, unspecified; R05.3 Chronic cough; F32.A Depression, unspecified; K21.9 Gastro-esophageal reflux disease without esophagitis; G47.00 Insomnia, unspecified; G62.9 Polyneuropathy, unspecified; F12.90 Cannabis use, unspecified, uncomplicated
CPT/HCPCS: 00123; 36415; 71275; 80048; 80053; 87040; 87449; 87505; 87637; 93005; 94618; 94640; 96365; 96367; 99285; J1650; 83605; 83735; 84484; 85025; 85379; 87070; 87205; 93010; 94664; 94668; 99223; 99233; 99239; J0456; J0696; J3490; J7512; J7620

== ENCOUNTER 2024-10-23 16:30 | Outpatient (REF) | payer MEDICAID, SELFPAY ==
[2024-10-23 16:09] LABS: ALT 29 U/L (16-63); AST 42 U/L (15-37); Albumin 1.9 g/dL (3.4-5.0); Alkaline Phosphatase 193 U/L (46-116); BUN 3 mg/dL (7-18); Bilirubin, Total 0.9 mg/dL (0.2-1.0); CREATININE 0.4 mg/dL (0.70-1.30); Calcium 8.6 mg/dL (8.5-10.1); Chloride 97 mmol/L (98-107); Estimated GFR 124.13 (mL/min/1.73m2); Glucose 75 mg/dL (74-106); Sodium 133 mmol/L (136-145); Total Protein 6.6 g/dL (6.4-8.2)
== END 2024-10-23 16:31 | disposition home or self-care (01) ==
LOC: NCHCN 16:30
PROVIDERS: PCP Nurse Practitioner Family; Visit Provider Nurse Practitioner Family
DX: R60.0 Localized edema (principal)
CPT/HCPCS: 80053

== ENCOUNTER 2025-03-12 12:33 | Emergency (ER) | payer MEDICAID, SELFPAY ==
[2025-03-12] VITALS (24 sets, daily range): BP systolic 89–117; BP diastolic 50–66; PULSE 65–76; RESP 12–22; TEMP 36.8; O2SAT 92–100
--- NOTE | 2025-03-12 13:00 | RT.EKG_ITS ---
APPROVED REPORT Exam: Resting ECG Reason for Exam: Weakness Patient Location: E HR:73 bpm ECG Measurements Heart Rate 73 AXIS WI 42 P 246 QRSd 86 QRS 74 QT 385 T 68 QTc 424 Conclusion Sinus or ectopic atrial rhythm...P axis (-45,135) No Occlusion [place]
--- NOTE | 2025-03-12 13:03 | W.ED.GENAD ---
Discharge Plan Disposition Patient Disposition: Home Condition: Stable Discharge Details Clinical Impression: Impacted cerumen of right ear Primary Care Provider: PINEDA ELLIS ED Provider: Godwin Sanford Home Meds and New Rx's Prescriptions: New ofloxacin 0.3 % drops 10 drp otic (ear) BID 10 Days Qty: 5 0RF Continued budesonide-formoterol [Symbicort] 160-4.5 mcg/actuation HFA aerosol inhaler 1 puff IH BID albuterol sulfate [ProAir HFA] 90 mcg/actuation HFA aerosol inhaler 1 - 2 puff IH .COMPLEX PRN Patient Comments: 1 - 2 puff IH Q4-Q6 PRN; Rx Instructions: 1 - 2 puff IH Q4-Q6 PRN; gabapentin 800 mg tablet 400 mg PO TID Patient Comments: TAKE 1 TABLET BY MOUTH THREE TIMES DAILY amitriptyline 100 mg tablet 75 mg PO TID tiotropium bromide [Spiriva with HandiHaler] 18 mcg capsule, w/inhalation device 1 cap inhalation DAILY Rx Instructions: puncture 1 cap using device; one dose = 2 inhalations escitalopram oxalate 5 mg tablet 5 mg PO DAILY Patient Comments: TAKE ONE TABLET BY MOUTH EVERY DAY benzonatate 100 mg Capsule 100 mg PO TID Qty: 14 0RF guaifenesin [Mucus Relief ER] 600 mg Tablet Extended Release 12hr 600 mg PO BID Qty: 14 0RF nicotine 21 mg/24 hr Patch 24 Hour 21 mg transdermal DAILY Qty: 28 0RF prochlorperazine maleate 5 mg Tablet 5 mg PO Q8H PRN PRNQty: 10 0RF ipratropium-albuterol 20-100 mcg/actuation mist 1 puff inhalation Q6H PRN (Reason: Pneumonia, SOB wheezing ) Qty: 4 0RF cefpodoxime 200 mg tablet 200 mg PO Q12H Qty: 10 0RF Rx Instructions: must administer with a meal/food Bio-K plus 50 billion cell capsule,delayed release(DR/EC) 1 cap PO DAILY Qty: 7 0RF Rx Instructions: Take 3 hours apart from antibiotics Discharge Instructions Instructions: Ofloxacin (Systemic), Ear Wax Impaction ED, Alcohol Intoxication ED, Cervical Sprain ED Additional Instructions: You were seen in the emergency department for your right ear pain, you had copious amounts of earwax impacted and we removed the vast majority of this, you can purchase an [id number] ear irrigation kit at any pharmacy and continue this for the next few days. Use warm water when you flush your ears. I have sent you a prescription for eardrops to prevent infection from the mild abrasions that happen when removing earwax. It helps to asked the pharmacist for a behind the cabinet medicine called Jessica and add in a few drops of hydrogen peroxide and let that marinated in your otic canal to help break up the impacted earwax. You were also quite intoxicated, your right arm pain is likely related to a muscle strain of your right trapezius muscle as this is where you had tenderness, otherwise your laboratory workup showed a mild pancreatitis likely from prolonged alcohol use. Please follow-up with your primary care provider, follow-up with ENT for any problems with your ear and return for any emergent concerns. Referrals: PINEDA ELLIS NP [Primary Care Provider, Medicine] Capo Brooks MD [ [facility] STAFF PHYSICIAN, ENT Surgical] Discharge Data Discharge Date/Time-TO BE ENTERED AT DEPARTURE: 03/12/25 15:18 HPI General Date/Time Provider Initiated Documentation: 03/12/25 12:53. HPI Narrative: 59 year-old male presents to ED today by POV/ambulating with a chief complaint of R ear pain for weeks, highly intoxicated- states he went to primary care and they couldn't remove the ear wax. Quality described as R ear has diminished hearing, some pain, no radiation to discharge, pain behind ear, fever, sore throat, inability to swallow, hoarse voice, trismus. Severity is described as mild. Palliating factors include nothing specific attempted. Provoking factors include nothing specific. Patient not anticoagulated. Related Data Home Medications ?Medication ?Instructions ?Recorded ?Confirmed albuterol sulfate 90 mcg/actuation 1 - 2 puff inhalation .COMPLEX PRN 08/23/18 03/12/25 aerosol inhaler (ProAir HFA) budesonide-formoterol HFA 160 1 puff inhalation BID 08/23/18 03/12/25 mcg-4.5 mcg/actuation aerosol inhaler (Symbicort) gabapentin 800 mg tablet 400 mg PO TID 11/12/21 03/12/25 escitalopram oxalate 5 mg tablet 5 mg PO DAILY 10/11/24 03/12/25 tiotropium bromide 18 mcg capsule 1 cap inhalation DAILY 10/11/24 03/12/25 with inhalation device (Spiriva with HandiHaler) L. acidophilus,casei,rhamnosus 50 1 cap PO DAILY #7 caps 10/13/24 03/12/25 billion cell capsule,delayed release (Bio-K plus) benzonatate 100 mg capsule 100 mg PO TID #14 caps 10/13/24 03/12/25 cefpodoxime 200 mg tablet 200 mg PO Q12H #10 tabs 10/13/24 03/12/25 guaifenesin 600 mg tablet, 600 mg PO BID #14 tabs 10/13/24 03/12/25 extended release 12 hr (Mucus Relief ER) ipratropium 20 mcg-albuterol 100 1 puff inhalation Q6H PRN 10/13/24 03/12/25 mcg/actuation mist for inhalation Pneumonia, SOB wheezing #4 grams nicotine 21 mg/24 hr daily 21 mg transdermal DAILY #28 ea 10/13/24 03/12/25 transdermal patch prochlorperazine maleate 5 mg 5 mg PO Q8H PRN PRN #10 tabs 10/13/24 03/12/25 tablet amitriptyline 100 mg tablet 75 mg PO TID 03/12/25 03/12/25 ofloxacin 0.3 % ear drops 10 drp otic (ear) BID 10 days #5 mL 03/12/25 Previous Rx's ?Medication ?Instructions ?Recorded L. acidophilus,casei,rhamnosus 50 1 cap PO DAILY #7 caps 10/13/24 billion cell capsule,delayed release (Bio-K plus) benzonatate 100 mg capsule 100 mg PO TID #14 caps 10/13/24 cefpodoxime 200 mg tablet 200 mg PO Q12H #10 tabs 10/13/24 guaifenesin 600 mg tablet, 600 mg PO BID #14 tabs 10/13/24 extended release 12 hr (Mucus Relief ER) ipratropium 20 mcg-albuterol 100 1 puff inhalation Q6H PRN 10/13/24 mcg/actuation mist for inhalation Pneumonia, SOB wheezing #4 grams nicotine 21 mg/24 hr daily 21 mg transdermal DAILY #28 ea 10/13/24 transdermal patch prochlorperazine maleate 5 mg 5 mg PO Q8H PRN PRN #10 tabs 10/13/24 tablet ofloxacin 0.3 % ear drops 10 drp otic (ear) BID 10 days #5 mL 03/12/25 Allergies Allergy/AdvReac Type Severity Reaction Status Date / Time meloxicam AdvReac Intermediate Nausea Unverified 10/11/24 14:23 General Stated Complaint: EarProblem EMORY: 4 Review of Systems All systems reviewed & are unremarkable except as noted in HPI and below Exam Narrative Exam Narrative: GENERAL APPEARANCE: Well-nourished, non-toxic, intoxicated, atraumatic, no acute distress. SKIN: Warm, pink, dry, intact, without rashes/lesions/ulcerations. HEAD: Normocephalic, atraumatic, normal hair distribution for gender/age. EYES: Normal conjunctiva, no exudates on lids/lashes. ENT: Nares patent, no circumoral cyanosis, no facial swelling, R ear completely clogged with cerumen NECK: Supple, trachea midline, painless cervical ROM. LUNGS/CHEST: Lungs CTA bilaterally, non-labored respirations, normal A/P diameter, symmetrical expansion, no chest wall deformity HEART (CV/PV): Regular rate and rhythm without murmur, no peripheral edema, no JVD. ABDOMEN: Soft, non-distended, no guarding, no tenderness. MSK: Normal ROM, no swelling/deformity to bilateral UEs or LEs, moving all extremities without weakness, no cyanosis, spine midline without tenderness, normal curvature. NEURO: Mental Status AAOx4 - alert to person, place, time, events No facial droop, no forehead involvement. Motor: No focal weakness - strength 5/5 in bilateral UEs and LEs, proximal and distal, symmetric. Sensory: sensation intact to light touch globally. Gait normal: patient ambulated without ataxia into ED room. PSYCH: euthymic, cooperative, pleasant, appropriate speech Course Vital Signs Vital signs: Vital Signs Temperature 36.8 C 03/12/25 12:37 Pulse 76 03/12/25 12:37 Respiratory Rate 16 03/12/25 12:37 Blood Pressure 93/52 L 03/12/25 12:37 Pulse Oximetry 96 03/12/25 12:37 Temperature 36.8 C 03/12/25 12:41 Pulse 76 03/12/25 12:41 Respiratory Rate 16 03/12/25 12:41 Blood Pressure 93/52 L 03/12/25 12:41 Pulse Oximetry 96 03/12/25 12:41 Pain Level 10 03/12/25 12:41 Procedure Ear Wax Removal Provider that performed the procedure: Godwin Sanford Indication: Hearing Loss and Pain Standard Time Out Performed: No Patient Consented: Verbally Cerumenolytic Used: Colace and other (hydrogen peroxide cap full) Results: Re-examined: cerumen removed completely TM Visible: TM(s) intact, normal appearance Ear Canal: bleeding Noted (mild) Patient Tolerated Procedure: well Complications: bleeding Technique: ear canal irrigated and ear canal curetted Medical Decision Making This dictation utilizes [id number] dictation software and may contain unedited grammatical errors. 59 year-old male presents to ED today by POV/ambulating with a chief complaint of R ear pain for weeks, highly intoxicated- states he went to primary care and they couldn't remove the ear wax. Quality described as R ear has diminished hearing, some pain, no radiation to discharge, pain behind ear, fever, sore throat, inability to swallow, hoarse voice, trismus. Severity is described as mild. Palliating factors include nothing specific attempted. Provoking factors include nothing specific. Patients' medical history: COPD, anxiety, GERD, alcohol abuse. Family and social history: intoxicated, denies drug use. Pertinent exam findings / vital signs include R ear severely clogged with cerumen, benign posterior oropharynx, benign cardiopulmonary exam. Differential / pathologies of concern include intoxication, cerumen impaction. Diagnostic studies of: - CBC, CMP, Trop I, Lipase, ETOH Level, Magnesium. - CBC is fairly unremarkable without any anemia or leukocytosis - CMP shows sodium of 125, which is the patient's baseline - He has normal magnesium - Negative troponin - Lipase is mildly elevated indicating likely chronic mild pancreatitis - Alcohol level 209 Interventions of: -Soaked patients R ear in liquid colace/hydrogen peroxide mixture for 15-30 mins between attempts to remove copious amounts of ear wax with curette, tweezers and irrigation, succesfully removed copious amount and TM visualized, minor abrasion during removal to otic canal, started on ofloxacin drops ED Course/Assessment/Plan: 59-year-old male presents intoxicated with a severe impaction of cerumen in his right ear underwent a lengthy removal removing copious amounts, he noted that his hearing and mild pain improved, he slept off his intoxication was clinically sober before he left not in a vehicle. I counseled him to return for any emergent concerns. Findings not consistent with mastoiditis, deep space infection, alcohol withdrawal. Disposition of Impacted Cerumen of Right Ear. Patient verbalized understanding of the plan and return to ED criteria and engaged in shared decision making. Medical Records Medical records reviewed: Yes I reviewed the patient's medical records. Lab Data Lab results reviewed: Yes I reviewed the patient's lab results. Labs: Laboratory Tests Range/Units 03/12/25 13:19 WBC (4.4-10.8) 10^3/uL 8.69 RBC (4.36-5.78) 10^6/uL 4.24 L Hgb (13.5-17.5) g/dL 13.7 Hct (40.0-50.0) % 39.9 L MCV (80-95) fL 94 MCH (27.0-33.0) pg 32.3 MCHC (32.0-36.0) % 34.3 RDW (11.8-14.1) % 17.1 H Plt Count (130-400) 10^3/uL 247 MPV (8.0-11.0) fL 11.0 Immature Gran % % 3.8 Neutrophils % % 58.7 Lymphocytes % % 22.3 Monocytes % % 13.8 Eosinophils % % 0.6 Basophils % % 0.8 Nucleated RBC % (0.0-0.3) % 0.0 Absolute Neutrophils (1.2-6.7) 10^3/uL 5.10 Absolute Lymphocytes (1.2-3.4) 10^3/uL 1.94 Absolute Monocytes (0.1-0.8) 10^3/uL 1.20 H Absolute Eosinophils (0.0-0.7) 10^3/uL 0.05 Absolute Basophils (0.0-0.2) 10^3/uL 0.07 Sodium (136-145) mmol/L 125 L Potassium (3.5-5.1) mmol/L 3.8 Chloride (98-107) mmol/L 90 L Carbon Dioxide (21.0-32.0) mmol/L 23.3 Anion Gap (3-11) mmol/L 11.7 H BUN (7-18) mg/dL 7 Creatinine (0.70-1.30) mg/dL 0.5 L Est GFR (CKD-EPI 2020) (mL/min/1.73m2) 116.04 Glucose (74-106) mg/dL 91 Calcium (8.5-10.1) mg/dL 8.7 Magnesium (1.8-2.4) mg/dL 2.0 Total Bilirubin (0.2-1.0) mg/dL 0.6 AST (15-37) U/L 37 ALT (16-63) U/L 24 Alkaline Phosphatase (46-116) U/L 110 Troponin I (<or=76) ng/L 8 Total Protein (6.4-8.2) g/dL 7.5 Albumin (3.4-5.0) g/dL 3.3 L Lipase (<78) U/L 159 H Ethyl Alcohol (<10) mg/dL 209.8 H Quality:SDOH Health Related Social Needs: Health related social needs food insecurity Health related social needs details n/a PFSH All Active Problems (Updated 03/12/25 @ 14:57 by HEIDY Ledezma) Impacted cerumen of right ear (Acute) Nicotine dependence (Acute) CAP (community acquired pneumonia) (Acute) Acute hyponatremia (Acute) Left upper lobe pneumonia (Acute) Sepsis (Acute) Trauma (Acute) Acute alcohol intoxication (Acute) Rotatory subluxation of atlantoaxial joint (Acute) Fracture of nasal bone (Acute) Lumbar radiculopathy, right (Chronic) Left lumbar radiculitis (Chronic) Spondylosis of lumbar region without myelopathy or radiculopathy (Chronic) Medical History Aggression Alcohol abuse, in remission Anxiety Anxiety Back pain Bilateral ankle fractures Chronic cough Chronic knee pain Chronic left shoulder pain Chronic pain COPD (chronic obstructive pulmonary disease) Depression Edentulous Elevated blood pressure reading Elevated LFTs Fatigue GERD (gastroesophageal reflux disease) Headache Herniated disc Homeless Hx of fracture of nose Hydrocele, left Insomnia Left foot pain Left leg pain Left shoulder pain Onychomycosis Peripheral neuropathy Spondylosis of lumbar spine Tobacco use disorder Ulna fracture Surgical History Colonoscopy - MAC (05/30/17) repair fractured ankels repair hyrocele repair of thumb Social History Smoking/Tobacco Use Status: Current every day Tobacco Type: cigarettes Smoking risk assessment performed?: Yes Alcohol Intake: current Alcohol Intake frequency: 0-2 drinks per day Alcohol type: beer Drug use: Daily Substance use type: marijuana Housing: apartment Do you feel safe at home: Yes Do you feel safe in your relationship?: Yes
[2025-03-12 13:39] LABS: Abs Immature Grans 0.33 10^3/uL (0.0-0.06); HCT 39.9 % (40.0-50.0); HGB 13.7 g/dL (13.5-17.5); Immature Grans % 3.8 %; MCH 32.3 pg (27.0-33.0); MCHC 34.3 % (32.0-36.0); MCV 94 fL (80-95); MPV 11.0 fL (8.0-11.0); Platelet Count 247 10^3/uL (130-400); RBC 4.24 10^6/uL (4.36-5.78); RDW 17.1 % (11.8-14.1); RDW-SD 58.5 fL; WBC 8.69 10^3/uL (4.4-10.8)
[2025-03-12] MEDS: Docusate Sodium 100 MG/10 ML CUP PO (13:42)
[2025-03-12 14:15] LABS: ALT 24 U/L (16-63); AST 37 U/L (15-37); Albumin 3.3 g/dL (3.4-5.0); Alkaline Phosphatase 110 U/L (46-116); Anion Gap 11.7 mmol/L (3-11); BUN 7 mg/dL (7-18); Bilirubin, Total 0.6 mg/dL (0.2-1.0); CO2 23.3 mmol/L (21.0-32.0); Calcium 8.7 mg/dL (8.5-10.1); Chloride 90 mmol/L (98-107); Estimated GFR 116.04 (mL/min/1.73m2); Glucose 91 mg/dL (74-106); Lipase 159 U/L (<78); Magnesium 2.0 mg/dL (1.8-2.4); Potassium 3.8 mmol/L (3.5-5.1); Sodium 125 mmol/L (136-145); Total Protein 7.5 g/dL (6.4-8.2); Troponin I 8 ng/L (<or=76)
== END 2025-03-12 15:18 | disposition home or self-care (01) ==
PROVIDERS: Emergency Provider Physician Assistant; PCP Nurse Practitioner Family
DX: Z59.41 Food insecurity; M79.601 Pain in right arm; H92.01 Otalgia, right ear; H61.21 Impacted cerumen, right ear; F10.929 Alcohol use, unspecified with intoxication, unspecified
CPT/HCPCS: 99283 ×2; 69210; 36416; 82962; 80053; 83690; 93005; 80320; 83735; 84484; 85025; 93010

== ENCOUNTER 2025-04-01 16:53 | Emergency (ER) | payer MEDICAID, SELFPAY ==
[2025-04-01 17:02] VITALS: BP 110/70; PULSE 74; RESP 18
--- NOTE | 2025-04-01 17:15 | NUR.NOTE ---
Nursing Note: PT left AMA this and charge nurse spoke with PT tried multiple times to have patient come back to unit PT said it was too loud in the unit with all the beeping. Nursing staff tried calling his brother but went straight to . PT asked if we could call cornelius kurtz this nurse called set up transport to PT home. Cornelius kurtz said they will be at [facility] at [phone] Security is aware of the situation
--- NOTE | 2025-04-01 19:54 | W.ED.GENAD ---
Discharge Plan Disposition Patient Disposition: Eloped Discharge Details Clinical Impression: Alcohol use Primary Care Provider: PINEDA ELLIS ED Provider: Juan Small Home Meds and New Rx's Prescriptions: No Action budesonide-formoterol [Symbicort] 160-4.5 mcg/actuation HFA aerosol inhaler 1 puff IH BID albuterol sulfate [ProAir HFA] 90 mcg/actuation HFA aerosol inhaler 1 - 2 puff IH .COMPLEX PRN Patient Comments: 1 - 2 puff IH Q4-Q6 PRN; Rx Instructions: 1 - 2 puff IH Q4-Q6 PRN; gabapentin 800 mg tablet 400 mg PO TID Patient Comments: TAKE 1 TABLET BY MOUTH THREE TIMES DAILY amitriptyline 100 mg tablet 75 mg PO TID tiotropium bromide [Spiriva with HandiHaler] 18 mcg capsule, w/inhalation device 1 cap inhalation DAILY Rx Instructions: puncture 1 cap using device; one dose = 2 inhalations escitalopram oxalate 5 mg tablet 5 mg PO DAILY Patient Comments: TAKE ONE TABLET BY MOUTH EVERY DAY benzonatate 100 mg Capsule 100 mg PO TID Qty: 14 0RF guaifenesin [Mucus Relief ER] 600 mg Tablet Extended Release 12hr 600 mg PO BID Qty: 14 0RF nicotine 21 mg/24 hr Patch 24 Hour 21 mg transdermal DAILY Qty: 28 0RF prochlorperazine maleate 5 mg Tablet 5 mg PO Q8H PRN PRNQty: 10 0RF ipratropium-albuterol 20-100 mcg/actuation mist 1 puff inhalation Q6H PRN (Reason: Pneumonia, SOB wheezing ) Qty: 4 0RF cefpodoxime 200 mg tablet 200 mg PO Q12H Qty: 10 0RF Rx Instructions: must administer with a meal/food Bio-K plus 50 billion cell capsule,delayed release(DR/EC) 1 cap PO DAILY Qty: 7 0RF Rx Instructions: Take 3 hours apart from antibiotics Discharge Data Discharge Date/Time-TO BE ENTERED AT DEPARTURE: 04/01/25 17:07 HPI HPI Narrative: This patient arrived via EMS during my shift. I signed up to evaluate him but did not have the chance to see him nor participate in his care before he eloped from the emergency department. He reportedly had had 2 weeks of slurred speech facial droop and walking with difficulty. He reportedly had been drinking tonight. He no longer wanted to be seen. He reportedly left ambulating. His IV was removed before he left. Related Data Home Medications ?Medication ?Instructions ?Recorded ?Confirmed albuterol sulfate 90 mcg/actuation 1 - 2 puff inhalation .COMPLEX PRN 08/23/18 03/12/25 aerosol inhaler (ProAir HFA) budesonide-formoterol HFA 160 1 puff inhalation BID 08/23/18 03/12/25 mcg-4.5 mcg/actuation aerosol inhaler (Symbicort) gabapentin 800 mg tablet 400 mg PO TID 11/12/21 03/12/25 escitalopram oxalate 5 mg tablet 5 mg PO DAILY 10/11/24 03/12/25 tiotropium bromide 18 mcg capsule 1 cap inhalation DAILY 10/11/24 03/12/25 with inhalation device (Spiriva with HandiHaler) L. acidophilus,casei,rhamnosus 50 1 cap PO DAILY #7 caps 10/13/24 03/12/25 billion cell capsule,delayed release (Bio-K plus) benzonatate 100 mg capsule 100 mg PO TID #14 caps 10/13/24 03/12/25 cefpodoxime 200 mg tablet 200 mg PO Q12H #10 tabs 10/13/24 03/12/25 guaifenesin 600 mg tablet, 600 mg PO BID #14 tabs 10/13/24 03/12/25 extended release 12 hr (Mucus Relief ER) ipratropium 20 mcg-albuterol 100 1 puff inhalation Q6H PRN 10/13/24 03/12/25 mcg/actuation mist for inhalation Pneumonia, SOB wheezing #4 grams nicotine 21 mg/24 hr daily 21 mg transdermal DAILY #28 ea 10/13/24 03/12/25 transdermal patch prochlorperazine maleate 5 mg 5 mg PO Q8H PRN PRN #10 tabs 10/13/24 03/12/25 tablet amitriptyline 100 mg tablet 75 mg PO TID 03/12/25 03/12/25 Previous Rx's ?Medication ?Instructions ?Recorded L. acidophilus,casei,rhamnosus 50 1 cap PO DAILY #7 caps 10/13/24 billion cell capsule,delayed release (Bio-K plus) benzonatate 100 mg capsule 100 mg PO TID #14 caps 10/13/24 cefpodoxime 200 mg tablet 200 mg PO Q12H #10 tabs 10/13/24 guaifenesin 600 mg tablet, 600 mg PO BID #14 tabs 10/13/24 extended release 12 hr (Mucus Relief ER) ipratropium 20 mcg-albuterol 100 1 puff inhalation Q6H PRN 10/13/24 mcg/actuation mist for inhalation Pneumonia, SOB wheezing #4 grams nicotine 21 mg/24 hr daily 21 mg transdermal DAILY #28 ea 10/13/24 transdermal patch prochlorperazine maleate 5 mg 5 mg PO Q8H PRN PRN #10 tabs 10/13/24 tablet Allergies Allergy/AdvReac Type Severity Reaction Status Date / Time meloxicam AdvReac Intermediate Nausea Unverified 10/11/24 14:23 General Stated Complaint: CVA/TIA EMORY: 3 Course Vital Signs Vital signs: Vital Signs Pulse 74 04/01/25 17:02 Respiratory Rate 18 04/01/25 17:02 Blood Pressure 110/70 04/01/25 17:02 Pulse 74 04/01/25 17:02 Respiratory Rate 18 04/01/25 17:02 Blood Pressure 110/70 04/01/25 17:02 Oxygen Delivery Method Room Air 04/01/25 17:02 Oxygen Flow Rate 0 04/01/25 17:02 Medical Decision Making Quality:SDOH Health Related Social Needs: Health related social needs food insecurity Health related social needs details n/a PFSH All Active Problems (Updated 03/12/25 @ 14:57 by HEIDY Ledezma) Alcohol use (Acute) Impacted cerumen of right ear (Acute) Nicotine dependence (Acute) CAP (community acquired pneumonia) (Acute) Acute hyponatremia (Acute) Left upper lobe pneumonia (Acute) Sepsis (Acute) Trauma (Acute) Acute alcohol intoxication (Acute) Rotatory subluxation of atlantoaxial joint (Acute) Fracture of nasal bone (Acute) Lumbar radiculopathy, right (Chronic) Left lumbar radiculitis (Chronic) Spondylosis of lumbar region without myelopathy or radiculopathy (Chronic) Medical History Aggression Alcohol abuse, in remission Anxiety Anxiety Back pain Bilateral ankle fractures Chronic cough Chronic knee pain Chronic left shoulder pain Chronic pain COPD (chronic obstructive pulmonary disease) Depression Edentulous Elevated blood pressure reading Elevated LFTs Fatigue GERD (gastroesophageal reflux disease) Headache Herniated disc Homeless Hx of fracture of nose Hydrocele, left Insomnia Left foot pain Left leg pain Left shoulder pain Onychomycosis Peripheral neuropathy Spondylosis of lumbar spine Tobacco use disorder Ulna fracture Surgical History Colonoscopy - MAC (05/30/17) repair fractured ankels repair hyrocele repair of thumb Social History Smoking/Tobacco Use Status: Current every day Tobacco Type: cigarettes Smoking risk assessment performed?: Yes Alcohol Intake: current Alcohol Intake frequency: 0-2 drinks per day Alcohol type: beer Drug use: Daily Substance use type: marijuana Housing: apartment Do you feel safe at home: Yes Do you feel safe in your relationship?: Yes
== END 2025-04-01 17:07 | disposition left against medical advice (07) ==
LOC: ER 17:01
PROVIDERS: Emergency Provider Emergency Medicine; PCP Nurse Practitioner Family
DX: F10.90 Alcohol use, unspecified, uncomplicated (principal); R51.9 Headache, unspecified; R47.81 Slurred speech
CPT/HCPCS: 99283 ×2